=== PATIENT | male | born 1955 | race Caucasian/White ===

== ENCOUNTER → 2017-08-04 | Outpatient (CLI) | payer OTHER | END | disposition home or self-care (01) | LOC: RADMRIMAIN 16:59 | PROVIDERS: ATTEND Family Medicine | DX: Z53.9 Procedure and treatment not carried out, unspecified reason (principal) ==

== ENCOUNTER → 2017-08-05 | Outpatient (CLI) | payer OTHER | END | disposition home or self-care (01) | LOC: RADMRIMAIN 13:20 | PROVIDERS: ATTEND Family Medicine | DX: Z53.9 Procedure and treatment not carried out, unspecified reason (principal) ==

== ENCOUNTER 2017-08-12 19:27 | Emergency (ER) | payer OTHER ==
[2017-08-12 19:36] VITALS: TEMP 98
[2017-08-12] MEDS ORDERED: MORPHINE SULFATE IR 15 MG TABLET PO STA (20:02)
[2017-08-12] MEDS ORDERED: MORPHINE SULFATE ER 60 MG TABLET PO STA (20:10)
[2017-08-12] MEDS ORDERED: METOPROLOL TARTRATE 5 MG/5 ML VIAL IVP SCH (20:15)
[2017-08-12 20:25] LABS: Basophils # (A) 0.1 k/uL (0-0.2); Basophils % (A) 1 %; Eosinophils # (A) 0.4 k/uL (0-0.7); Eosinophils % (A) 4 %; HCT 50.5 % (39.0-53.0); HGB 16.7 gm/dL (13.0-17.5); Lymphocytes # (A) 3.1 k/uL (1.0-4.8); Lymphocytes % (A) 28 %; MCH 28.4 pg (25.0-35.0); MCHC 33.1 g/dL (31.0-37.0); MCV 85.7 fL (80.0-100.0); Monocytes # (A) 0.6 k/uL (0-1.0); Monocytes % (A) 5 %; Neutrophils # (A) 6.5 k/uL (1.3-7.7); Neutrophils % (A) 60 %; Platelet Count 286 k/uL (150-450); RDW 13.5 % (11.5-15.5); WBC 10.9 k/uL (3.8-10.6)
[2017-08-12 20:34] LABS: INR 2.7 (<1.2); Partial Thromboplastin Time 32.3 sec (22.0-30.0); Prothrombin Time 23.9 sec (9.0-12.0)
--- NOTE | 2017-08-12 20:37 | XR ---
EXAMINATION TYPE: XR chest 2V DATE OF EXAM: 08/12/2017 COMPARISON: NONE HISTORY: Palpitations. Chest pain TECHNIQUE: Frontal and lateral views of the chest are obtained. FINDINGS: Heart and mediastinum are normal. There is slight coarsening of interstitial pulmonary [place]. There is no pleural effusion. Bony thorax is intact. There are chest leads. IMPRESSION: Mild increased markings. This could relate to minimal fibrosis.
[2017-08-12 20:55] LABS: ALT 22 U/L (21-72); AST 19 U/L (17-59); Albumin 3.7 g/dL (3.5-5.0); Alkaline Phosphatase 48 U/L (38-126); Anion Gap 12 mmol/L; Blood Urea Nitrogen 18 mg/dL (9-20); Calcium 9.8 mg/dL (8.4-10.2); Carbon Dioxide 23 mmol/L (22-30); Chloride 104 mmol/L (98-107); Glucose 306 mg/dL (74-99); Magnesium 1.7 mg/dL (1.6-2.3); Sodium 139 mmol/L (137-145); Total Bilirubin 0.3 mg/dL (0.2-1.3); Total Protein 7.3 g/dL (6.3-8.2)
[2017-08-12 21:06] LABS: Creatine Kinase MB 1.3 ng/mL (0.0-2.4); Troponin I 0.02 ng/mL (0.000-0.034)
[2017-08-12 21:09] LABS: Potassium 4.3 mmol/L (3.5-5.1)
[2017-08-12] MEDS ORDERED: METOPROLOL TARTRATE 12.5 MG TAB PO STA (21:20)
--- NOTE | 2017-08-12 21:22 | ED ---
Arrhythmia/Palpitations HPI - General Chief Complaint: Arrhythmia/Palpitations Stated Complaint: Tachycardia Time Seen by Provider: 08/12/17 19:39 Source: patient Mode of arrival: wheelchair Limitations: no limitations - History of Present Illness Initial Comments: This is a 61-year-old male with a history of paroxysmal atrial fibrillation post -ablation in the past who is on Coumadin and metoprolol who presents emergency department for dictation's, mild chest discomfort, and elevated blood pressure. The patient states he was recently hospitalized multiple medications adjusted. He states he has Toprol changed from 25 mg twice a day to 12.5 g twice a day. He states that tonight you checking his blood pressure and his blood pressure was elevated and his heart rate was noted to be in the 130s. He decided come emergency department because he was having some palpitations at the time. He denies any lightheadedness. No chest discomfort at this time. Denies any shortness of breath. No other acute complaints. - Related Data Home Medications Medication Instructions Recorded Confirmed Aspirin [Adult Low Dose Aspirin EC] 81 mg PO DAILY 08/12/17 08/12/17 Atorvastatin [Lipitor] 40 mg PO HS 08/12/17 08/12/17 Docusate [Colace] 100 mg PO BID 08/12/17 08/12/17 Fenofibrate 160 mg PO DAILY 08/12/17 08/12/17 Flecainide Acetate [Tambocor] 75 mg PO BID 08/12/17 08/12/17 INSULIN LISPRO (HumaLOG) [HumaLOG] 20 unit SQ DAILY 08/12/17 08/12/17 Insulin Glargine [Lantus] 50 unit SQ HS 08/12/17 08/12/17 Ipratropium Nebulized [Atrovent 0.5 mg INHALATION RT-Q6H PRN 08/12/17 08/12/17 Nebulized] Ketoconazole 2% Cream [Nizoral 2%] 1 applic TOPICAL TID 08/12/17 08/12/17 Lisinopril 40 mg PO DAILY 08/12/17 08/12/17 Metoprolol Tartrate [Lopressor] 12.5 mg PO HS 08/12/17 08/12/17 Morphine Sulfate ER [Ms Contin 60 mg PO Q12HR 08/12/17 08/12/17 60Mg] Ranitidine HCl 150 mg PO BID 08/12/17 08/12/17 Warfarin [Coumadin] 1 mg PO [id number] 08/12/17 08/12/17 Warfarin [Coumadin] 2 mg PO MOTH 08/12/17 08/12/17 Warfarin [Coumadin] 5 mg PO HS 08/12/17 08/12/17 amLODIPine BESYLATE [Norvasc] 10 mg PO HS 08/12/17 08/12/17 glipiZIDE [Glucotrol] 5 mg PO BID 08/12/17 08/12/17 metFORMIN HCL 1,000 mg PO BID 08/12/17 08/12/17 Allergies Allergy/AdvReac Type Severity Reaction Status Date / Time No Known Allergies Allergy Verified 08/12/17 19:56 Review of Systems ROS Statement: Those systems with pertinent positive or pertinent negative responses have been documented in the HPI. ROS Other: All systems not noted in ROS Statement are negative. Past Medical History Past Medical History: Atrial Fibrillation, Chest Pain / Angina, Hyperlipidemia, Hypertension History of Any Multi-Drug Resistant Organisms: None Reported Past Surgical History: Ablation, Appendectomy, Orthopedic Surgery Additional Past Surgical History / Comment(s): Ear surgery Past Psychological History: No Psychological Hx Reported Smoking Status: Current some day smoker Past Alcohol Use History: None Reported Past Drug Use History: None Reported General Exam - General Exam Comments Initial Comments: Constitutional: Awake alert Appears comfortable Head: Normocephalic atraumatic Eyes: no conjunctival injection No scleral icterus EOMI Neck: No JVD Supple Heart: Irregularly irregular rhythm normal S1-S2 no murmurs Lungs: Clear to auscultation bilaterally No wheezing No rales Abdomen: Soft nondistended nontender Extremities: Non edematous DP pulses intact Radial pulses intact Neuro: A&Ox3 No focal neurologic deficits Psych: Appropriate mood and affect Limitations: no limitations Course Vital Signs 08/12/17 08/12/17 19:31 21:39 Temperature 98.0 F Pulse Rate 79 62 Respiratory 18 16 Rate Blood Pressure 140/80 149/70 O2 Sat by Pulse 97 95 Oximetry EKG Findings - EKG Comments: EKG Findings:: EKG showing intrafibrillation with a rate of 82. There is no abnormally 7 changes or T-wave inversions. QTC is 460. Other intervals normal. No ectopy. Medical Decision Making - Medical Decision Making Is a 61-year-old male presented for heart palpitations. On arrival he was found to be H of fibrillation. The patient did take his Toprol 0.5 metoprolol just prior to coming emergency Department. INR was noted to be in therapeutic range. His heart rate converted to sinus rhythm while in the emergency department. Patient was asymptomatic at that time. Troponin negative. At this time I feel the patient's symptoms are likely related to his decreased dose of metoprolol. I told him to increase his dose back to 25 mg twice a day and call Dr. Jones. He needs to have close follow-up with him. He has worsening or recurring symptoms he is to return to emergency. Patient was excited to go home and all questions were answered. - Lab Data Result diagrams: 08/12/17 20:12 08/12/17 20:12 Lab Results 08/12/17 08/12/17 08/12/17 Range/Units 20:12 20:12 20:12 WBC 10.9 H (3.8-10.6) k/uL RBC 5.90 (4.30-5.90) m/uL Hgb 16.7 (13.0-17.5) gm/dL Hct 50.5 (39.0-53.0) % MCV 85.7 (80.0-100.0) fL MCH 28.4 (25.0-35.0) pg MCHC 33.1 (31.0-37.0) g/dL RDW 13.5 (11.5-15.5) % Plt Count 286 (150-450) k/uL Neutrophils % 60 % Lymphocytes % 28 % Monocytes % 5 % Eosinophils % 4 % Basophils % 1 % Neutrophils # 6.5 (1.3-7.7) k/uL Lymphocytes # 3.1 (1.0-4.8) k/uL Monocytes # 0.6 (0-1.0) k/uL Eosinophils # 0.4 (0-0.7) k/uL Basophils # 0.1 (0-0.2) k/uL PT (9.0-12.0) sec INR (<1.2) APTT (22.0-30.0) sec Sodium 139 (137-145) mmol/L Potassium 4.3 (3.5-5.1) mmol/L Chloride 104 (98-107) mmol/L Carbon Dioxide 23 (22-30) mmol/L Anion Gap 12 mmol/L BUN 18 (9-20) mg/dL Creatinine 0.80 (0.66-1.25) mg/dL Est GFR (CKD-EPI)AfAm >90 (>60 ml/min/1.73 sqM) Est GFR (CKD-EPI)NonAf >90 (>60 ml/min/1.73 sqM) Glucose 306 H (74-99) mg/dL Calcium 9.8 (8.4-10.2) mg/dL Magnesium 1.7 (1.6-2.3) mg/dL Total Bilirubin 0.3 (0.2-1.3) mg/dL AST 19 (17-59) U/L ALT 22 (21-72) U/L Alkaline Phosphatase 48 (38-126) U/L CK-MB (CK-2) 1.3 (0.0-2.4) ng/mL Troponin I 0.020 (0.000-0.034) ng/mL Total Protein 7.3 (6.3-8.2) g/dL Albumin 3.7 (3.5-5.0) g/dL 08/12/17 Range/Units 20:12 WBC (3.8-10.6) k/uL RBC (4.30-5.90) m/uL Hgb (13.0-17.5) gm/dL Hct (39.0-53.0) % MCV (80.0-100.0) fL MCH (25.0-35.0) pg MCHC (31.0-37.0) g/dL RDW (11.5-15.5) % Plt Count (150-450) k/uL Neutrophils % % Lymphocytes % % Monocytes % % Eosinophils % % Basophils % % Neutrophils # (1.3-7.7) k/uL Lymphocytes # (1.0-4.8) k/uL Monocytes # (0-1.0) k/uL Eosinophils # (0-0.7) k/uL Basophils # (0-0.2) k/uL PT 23.9 H (9.0-12.0) sec INR 2.7 H (<1.2) APTT 32.3 H (22.0-30.0) sec Sodium (137-145) mmol/L Potassium (3.5-5.1) mmol/L Chloride (98-107) mmol/L Carbon Dioxide (22-30) mmol/L Anion Gap mmol/L BUN (9-20) mg/dL Creatinine (0.66-1.25) mg/dL Est GFR (CKD-EPI)AfAm (>60 ml/min/1.73 sqM) Est GFR (CKD-EPI)NonAf (>60 ml/min/1.73 sqM) Glucose (74-99) mg/dL Calcium (8.4-10.2) mg/dL Magnesium (1.6-2.3) mg/dL Total Bilirubin (0.2-1.3) mg/dL AST (17-59) U/L ALT (21-72) U/L Alkaline Phosphatase (38-126) U/L CK-MB (CK-2) (0.0-2.4) ng/mL Troponin I (0.000-0.034) ng/mL Total Protein (6.3-8.2) g/dL Albumin (3.5-5.0) g/dL Disposition Clinical Impression: Atrial fibrillation Disposition: HOME SELF-CARE Condition: Stable Instructions: A-fib (Atrial Fibrillation) (ED), Palpitations (ED) Additional Instructions: Please go back to taking your previous dosing of metoprolol 25 mg twice a day. Continue with your Coumadin. Call Dr. To. Referrals: Tom Pablo DO [Primary Care Provider] - 1-2 days Riley To MD [STAFF PHYSICIAN] - 1-2 days
[2017-08-12 21:40] VITALS: BP 149/70; PULSE 62; RESP 16
== END 2017-08-12 21:43 | disposition home or self-care (01) ==
LOC: EC 19:27
DX: I48.91 Unspecified atrial fibrillation (principal); E78.5 Hyperlipidemia, unspecified; I10 Essential (primary) hypertension; F17.200 Nicotine dependence, unspecified, uncomplicated; Z79.82 Long term (current) use of aspirin; Z79.4 Long term (current) use of insulin; Z79.891 Long term (current) use of opiate analgesic; Z79.01 Long term (current) use of anticoagulants; Z79.899 Other long term (current) drug therapy; Z98.890 Other specified postprocedural states; Z53.20 Procedure and treatment not carried out because of patient's decision for unspecified reasons
CPT/HCPCS: 36415; 71046; 80053; 82553; 83735; 84484; 85025; 85610; 85730; 93005; 99285

== ENCOUNTER 2017-12-08 20:56 | Emergency (ER) | payer OTHER ==
[2017-12-08 21:05] VITALS: RESP 18
--- NOTE | 2017-12-08 22:52 | XR ---
EXAMINATION TYPE: XR knee complete LT DATE OF EXAM: 12/08/2017 COMPARISON: NONE HISTORY: Knee pain TECHNIQUE: 3 views FINDINGS: There is mild knee joint effusion. I see no fracture nor dislocation. There is minor spurri ng of the lateral femoral and tibial condyles. IMPRESSION: Joint effusion. No fracture. Mild osteoarthritis in the lateral joint space.
[2017-12-08] MEDS ORDERED: KETOROLAC 60 MG/2 ML VIAL IM STA (22:58)
[2017-12-08] MEDS ORDERED: HYDROcodone/APAP 7.5-325MG 1 EACH TAB PO ONE (22:59)
--- NOTE | 2017-12-08 23:02 | ED ---
Lower Extremity Injury HPI - General Chief Complaint: Extremity Injury, Lower Stated Complaint: Knee Pain Time Seen by Provider: 12/08/17 22:01 Source: patient, family Mode of arrival: wheelchair Limitations: no limitations - History of Present Illness Initial Comments: This patient is a 62-year-old man who presents with pain and swelling of the left knee. The patient states that it developed while he is walking. The patient states that he turned while his foot was planted and he felt a popping feeling and like his knee buckled. There was not a great deal of pain at the time. He is not sure if he twisted his knee. He did not have a fall. He noticed that it started swelling and he was having pain. Patient states that he tried managing at home but symptoms only gotten worse. He denies previous surgery to the knee. No fever or chills. No chest symptoms or systemic symptoms. MD Complaint: knee injury Onset/Timin -: hour(s) Injury: Knee: Left Type of Injury: unknown Place: home Severity: severe Improves With: nothing Worsens With: weight bearing, movement Context: walking Associated Symptoms: snap/pop sensation - Related Data Home Medications Medication Instructions Recorded Confirmed Aspirin [Adult Low Dose Aspirin EC] 81 mg PO DAILY 08/12/17 12/08/17 Atorvastatin [Lipitor] 40 mg PO HS 08/12/17 12/08/17 Docusate [Colace] 100 mg PO BID 08/12/17 12/08/17 Fenofibrate 160 mg PO DAILY 08/12/17 12/08/17 Flecainide Acetate [Tambocor] 75 mg PO BID 08/12/17 12/08/17 INSULIN LISPRO (HumaLOG) [HumaLOG] 20 unit SQ AC-BRKFST 08/12/17 12/08/17 Insulin Glargine [Lantus] 60 unit SQ HS 08/12/17 12/08/17 Ipratropium Nebulized [Atrovent 0.5 mg INHALATION RT-Q6H PRN 08/12/17 12/08/17 Nebulized] Ketoconazole 2% Cream [Nizoral 2%] 1 applic TOPICAL TID 08/12/17 12/08/17 Lisinopril 40 mg PO DAILY 08/12/17 12/08/17 Metoprolol Tartrate [Lopressor] 12.5 mg PO HS 08/12/17 12/08/17 Ranitidine HCl 150 mg PO BID 08/12/17 12/08/17 Warfarin [Coumadin] 1 mg PO MOTH 08/12/17 12/08/17 Warfarin [Coumadin] 5 mg PO HS 08/12/17 12/08/17 amLODIPine BESYLATE [Norvasc] 10 mg PO HS 08/12/17 12/08/17 glipiZIDE [Glucotrol] 5 mg PO BID 08/12/17 12/08/17 metFORMIN HCL 1,000 mg PO BID 08/12/17 12/08/17 Hydrocodone/Acetaminophen [[place] 1 tab PO Q6H PRN 12/08/17 12/08/17 10-325] Omeprazole [PriLOSEC] 20 mg PO AC-BRKFST 12/08/17 12/08/17 Allergies Allergy/AdvReac Type Severity Reaction Status Date / Time No Known Allergies Allergy Verified 12/08/17 23:06 Review of Systems ROS Statement: Those systems with pertinent positive or pertinent negative responses have been documented in the HPI. ROS Other: All systems not noted in ROS Statement are negative. Constitutional: Denies: fever, chills, weakness Respiratory: Denies: cough, dyspnea Cardiovascular: Denies: chest pain Musculoskeletal: Reports: as per HPI, joint swelling, arthralgia Skin: Denies: rash Neurological: Denies: weakness, numbness, paresthesias Hematological/Lymphatic: Denies: easy bleeding Past Medical History Past Medical History: Atrial Fibrillation, Chest Pain / Angina, Hyperlipidemia, Hypertension History of Any Multi-Drug Resistant Organisms: None Reported Past Surgical History: Ablation, Appendectomy, Orthopedic Surgery Additional Past Surgical History / Comment(s): Ear surgery Past Psychological History: No Psychological Hx Reported Smoking Status: Current every day smoker Past Alcohol Use History: None Reported Past Drug Use History: None Reported General Exam Limitations: no limitations General appearance: alert, in no apparent distress Respiratory exam: Present: normal lung sounds bilaterally. Absent: respiratory distress, wheezes, rales, rhonchi, stridor Cardiovascular Exam: Present: regular rate, normal rhythm, normal heart sounds. Absent: systolic murmur, diastolic murmur, rubs, gallop Extremities exam: Present: tenderness, normal capillary refill, joint swelling, other (I am not able to perform full range of motion exam of the knee due to pain with range of motion.). Absent: calf tenderness Left Upper Leg exam: Present: normal inspection Knee exam: Present: tenderness, effusion. Absent: full ROM, abrasion, laceration, ecchymosis, deformity, dislocation, erythema Lower Leg exam: Present: normal inspection. Absent: tenderness, swelling Ankle exam: Present: normal inspection, full ROM. Absent: tenderness, swelling Foot/Toe exam: Present: normal inspection, full ROM. Absent: tenderness, swelling Neurovascular tendon exam: Present: no vascular compromise. Absent: motor deficit, sensory deficit Course Vital Signs 12/08/17 12/09/17 21:02 02:19 Temperature 98.7 F 98.2 F Pulse Rate 90 66 Respiratory 18 18 Rate Blood Pressure 156/99 161/100 O2 Sat by Pulse 98 100 Oximetry Procedures - Joint Aspiration/Injection Consent Obtained: verbal consent Time Out Performed: Yes Indications: drain hemarthrosis Side of Body: left Joint Aspirated: knee Ultrasound Guidance: No Skin Prep: Povidone-Iodine1% Local Anesthesia Used: Lidocaine 1% Needle Size Used: 18G Syringe Size Used: Other (30) Fluid Obtained: bloody Patient Tolerated Procedure: well, no complications Complications: none Medical Decision Making - Medical Decision Making This patient is 62-year-old man presenting with left knee effusion after low mechanism of injury. The patient does have hemarthrosis. I'm not able to fully assess the ligaments of the knee given his pain area the patient is feeling better following removal of approximate 50 mL of the hemarthrosis. He is placed in knee immobilizer and would like to follow-up with the orthopedic clinic. We discussed return parameters as well as appropriate further care and follow-up. Patient's Coumadin level was checked and it is at the top of the therapeutic window not supratherapeutic. - Lab Data Result diagrams: 12/09/17 01:30 Lab Results 12/09/17 12/09/17 Range/Units 01:30 01:30 WBC 10.6 (3.8-10.6) k/uL RBC 5.32 (4.30-5.90) m/uL Hgb 15.2 (13.0-17.5) gm/dL Hct 45.8 (39.0-53.0) % MCV 86.2 (80.0-100.0) fL MCH 28.7 (25.0-35.0) pg MCHC 33.3 (31.0-37.0) g/dL RDW 13.9 (11.5-15.5) % Plt Count 260 (150-450) k/uL Neutrophils % 64 % Lymphocytes % 25 % Monocytes % 5 % Eosinophils % 3 % Basophils % 1 % Neutrophils # 6.8 (1.3-7.7) k/uL Lymphocytes # 2.6 (1.0-4.8) k/uL Monocytes # 0.6 (0-1.0) k/uL Eosinophils # 0.4 (0-0.7) k/uL Basophils # 0.1 (0-0.2) k/uL PT 31.4 H (9.0-12.0) sec INR 3.5 H (<1.2) APTT 32.4 H (22.0-30.0) sec Disposition Clinical Impression: Knee injury, Knee effusion, left, Hemarthrosis Disposition: HOME SELF-CARE Condition: Fair Instructions: Knee Sprain (ED) Is patient prescribed a controlled substance at d/c from ED?: No Referrals: Enrique Davis MD [Medical Doctor] - 1-2 days
[2017-12-09] MEDS ORDERED: LIDOCAINE 1% INJ 10MG/ML (20 ML MDV) SQ STA (00:02)
[2017-12-09] MEDS ORDERED: MORPHINE SULFATE 2 MG/ML SYRINGE IV STA (01:16)
[2017-12-09 01:44] LABS: Basophils # (A) 0.1 k/uL (0-0.2); Basophils % (A) 1 %; Eosinophils # (A) 0.4 k/uL (0-0.7); Eosinophils % (A) 3 %; HCT 45.8 % (39.0-53.0); HGB 15.2 gm/dL (13.0-17.5); Lymphocytes # (A) 2.6 k/uL (1.0-4.8); Lymphocytes % (A) 25 %; MCH 28.7 pg (25.0-35.0); MCHC 33.3 g/dL (31.0-37.0); MCV 86.2 fL (80.0-100.0); Mean Platelet Volume 7.1; Monocytes # (A) 0.6 k/uL (0-1.0); Monocytes % (A) 5 %; Neutrophils # (A) 6.8 k/uL (1.3-7.7); Neutrophils % (A) 64 %; Platelet Count 260 k/uL (150-450); RBC 5.32 m/uL (4.30-5.90); RDW 13.9 % (11.5-15.5); WBC 10.6 k/uL (3.8-10.6)
[2017-12-09 01:52] LABS: INR 3.5 (<1.2); Partial Thromboplastin Time 32.4 sec (22.0-30.0); Prothrombin Time 31.4 sec (9.0-12.0)
[2017-12-09 02:20] VITALS: BP 161/100; PULSE 66; TEMP 98.2
== END 2017-12-09 02:20 | disposition home or self-care (01) ==
LOC: EC 20:56
DX: M25.062 Hemarthrosis, left knee (principal); M25.462 Effusion, left knee; E78.5 Hyperlipidemia, unspecified; I10 Essential (primary) hypertension; I48.91 Unspecified atrial fibrillation; F17.200 Nicotine dependence, unspecified, uncomplicated; Z79.01 Long term (current) use of anticoagulants; Z79.4 Long term (current) use of insulin; Z79.82 Long term (current) use of aspirin; Z79.899 Other long term (current) drug therapy; Z86.79 Personal history of other diseases of the circulatory system; X58.XXXA Exposure to other specified factors, initial encounter; Y93.01 Activity, walking, marching and hiking; Y92.009 Unspecified place in unspecified non-institutional (private) residence as the place of occurrence of the external cause
CPT/HCPCS: 36415; 85025; 85610; 85730; 73562; 99283; 20610; 96374; 96372; J2001; J1885; J2270

== ENCOUNTER → 2018-05-10 | Outpatient (CLI) | payer OTHER ==
--- NOTE | 2018-05-10 10:38 | US ---
EXAMINATION TYPE: US renals and bladder DATE OF EXAM: 05/10/2018 COMPARISON: NONE CLINICAL HISTORY: R80.9 Proteinuria,E11.9 DM 2. Proteinuria, no pain, kidney ultrasound per order EXAM MEASUREMENTS: Right Kidney: 13.4 x 6.5 x 6.5 cm Left Kidney: 13.1 x 5.2 x 5.7 cm Right Kidney: Cystic appearing lesions seen. Largest seen lower pole = 1.9 x 1.8 x 2.1 cm Left Kidney: dromedary hump seen Bladder: distended, wnl Bilateral Jets seen There is no evidence for hydronephrosis at this point in time. No nephrolithiasis is seen. No solid masses are identified. The urinary bladder is anechoic. Bilateral ureteral jets are seen. IMPRESSION: 1. Simple appearing cysts.
== END | disposition home or self-care (01) ==
LOC: RADUSWWP 09:44
PROVIDERS: ATTEND Family Medicine
DX: N28.1 Cyst of kidney, acquired (principal); E11.9 Type 2 diabetes mellitus without complications; R80.9 Proteinuria, unspecified
CPT/HCPCS: 76770

== ENCOUNTER 2020-08-21 20:54 | Inpatient (IN) | payer MEDICARE, OTHER ==
[2020-08-21] MEDS ORDERED: SODIUM CHLORIDE 0.9% 1,000 ML IV STA (21:23)
[2020-08-21] MEDS ORDERED: METOPROLOL TARTRATE 5 MG/5 ML VIAL IVP STA ×2 (21:23→22:19)
--- NOTE | 2020-08-21 21:40 | XR ---
EXAMINATION TYPE: XR chest 2V DATE OF EXAM: 08/21/2020 COMPARISON: NONE HISTORY: Weakness TECHNIQUE: 2 views FINDINGS: Heart is normal. There is no gross heart failure. There is slight increased interstitial pu lmonary markings. There are chest leads. There is no definite pleural effusion. IMPRESSION: Mild pulmonary interstitial infiltrates. No heart failure seen.
--- NOTE | 2020-08-21 21:53 | ED ---
SOB HPI - General Chief Complaint: Shortness of Breath Stated Complaint: ALEJANDRO Time Seen by Provider: 08/21/20 21:13 Source: patient, EMS, RN notes reviewed, old records reviewed Mode of arrival: EMS Limitations: no limitations - History of Present Illness Initial Comments: This is a 65-year-old male DF for evaluation. Patient presents today for evaluation of a trip fibrillation history of a for fibrillation. Patient has otherwise no significant treating cause of his shortness of breath he states he saw like this before with his atrial fibrillation acting up his heart rate feels elevated which also was causing weakness. No chest pain he is on blood thinners is taking medication as directed. He did take an extra dose of metoprolol prior to arrival states did not help, symptoms for about the last 4-5 hours currently. No recent fevers cough or congestion no nausea vomiting MD Complaint: shortness of breath -: hour(s) (4) Severity: moderate Severity scale (1-10): 4 Consistency: constant Improves With: rest, medication Worsens With: exertion, movement Known History Of: other (Atrial fibrillation) Context: recent URI, other (History of atrial fibrillation) Associated Symptoms: denies other symptoms Treatments Prior to Arrival: none - Related Data Home Medications Medication Instructions Recorded Confirmed Aspirin [Adult Low Dose Aspirin EC] 81 mg PO DAILY 08/12/17 08/21/20 Atorvastatin [Lipitor] 40 mg PO HS 08/12/17 08/21/20 Metoprolol Tartrate [Lopressor] 12.5 mg PO BID 08/12/17 08/21/20 metFORMIN HCL 1,000 mg PO BID 08/12/17 08/21/20 Hydrocodone/Acetaminophen [[place] 1 tab PO TID 12/08/17 08/21/20 10-325] Omeprazole [PriLOSEC] 20 mg PO DAILY 12/08/17 08/21/20 Albuterol Inhaler [Ventolin Hfa 2 puff INHALATION RT-QID PRN 08/21/20 08/21/20 Inhaler] Cholecalciferol [Vitamin D3 (25 50 mcg PO DAILY 08/21/20 08/21/20 Mcg = 1000 Iu)] Flecainide Acetate 100 mg PO BID 08/21/20 08/21/20 Insulin Aspart [NovoLOG Flexpen] See Protocol SQ AC-TID 08/21/20 08/21/20 Insulin Glargine,Hum.rec.anlog 25 unit SQ HS 08/21/20 08/21/20 [Basaglar Kwikpen U-100] Rivaroxaban [Xarelto] 20 mg PO HS 08/21/20 08/21/20 Semaglutide [Ozempic] 1 mg SQ MO 08/21/20 08/21/20 Triamterene-Hctz 37.5-25Mg 1 cap PO DAILY 08/21/20 08/21/20 [Dyazide 37.5-25 Capsule] Umeclidinium [place] [Incruse 1 puff INHALATION RT-DAILY 08/21/20 08/21/20 Ellipta] Valsartan 160 mg PO BID 08/21/20 08/21/20 Vitamin B Complex 1 cap PO DAILY 08/21/20 08/21/20 Vitamin E 180mg 180 mg PO HS 08/21/20 08/21/20 Allergies Allergy/AdvReac Type Severity Reaction Status Date / Time No Known Allergies Allergy Verified 08/21/20 22:21 Review of Systems ROS Statement: Those systems with pertinent positive or pertinent negative responses have been documented in the HPI. ROS Other: All systems not noted in ROS Statement are negative. Past Medical History Past Medical History: Atrial Fibrillation, Chest Pain / Angina, Hyperlipidemia, Hypertension History of Any Multi-Drug Resistant Organisms: None Reported Past Surgical History: Ablation, Appendectomy, Orthopedic Surgery Additional Past Surgical History / Comment(s): Ear surgery Past Psychological History: No Psychological Hx Reported Smoking Status: Current every day smoker Past Alcohol Use History: None Reported Past Drug Use History: None Reported General Exam Limitations: no limitations General appearance: alert, in no apparent distress, anxious Head exam: Present: atraumatic, normocephalic, normal inspection Eye exam: Present: normal appearance, PERRL, EOMI. Absent: scleral icterus, conjunctival injection, periorbital swelling ENT exam: Present: normal exam, mucous membranes moist Neck exam: Present: normal inspection. Absent: tenderness, meningismus, lymphadenopathy Respiratory exam: Present: normal lung sounds bilaterally. Absent: respiratory distress, wheezes, rales, rhonchi, stridor Cardiovascular Exam: Present: tachycardia, irregular rhythm, normal heart sounds. Absent: systolic murmur, diastolic murmur, rubs, gallop, clicks GI/Abdominal exam: Present: soft, normal bowel sounds. Absent: distended, tenderness, guarding, rebound, rigid Extremities exam: Present: normal inspection, full ROM, normal capillary refill. Absent: tenderness, pedal edema, joint swelling, calf tenderness Back exam: Present: normal inspection Neurological exam: Present: alert, oriented X3, CN II-XII intact Psychiatric exam: Present: normal affect, normal mood Skin exam: Present: warm, dry, intact, normal color. Absent: rash Course Vital Signs 08/21/20 08/21/20 20:56 22:51 Temperature 99.1 F Pulse Rate 115 H 118 H Respiratory 19 17 Rate Blood Pressure 124/86 119/83 O2 Sat by Pulse 98 96 Oximetry - Reevaluation(s) Reevaluation #1: 08/21/20 21:55 Medical records reviewed Reevaluation #2: 08/21/20 23:01 Spoke patient still feels lightheaded and dizzy Reevaluation #3: 08/21/20 23:02 patient informed of results and questions answered - Consultations Consultation #1: spoke tanisha ALCAZAR nickie for admission Medical Decision Making - Medical Decision Making 65 male with severe dizziness and near syncopal event coming in here for evaluation today. Patient does have atrophic fibrillation but states his heart is not always in nature for ablation is on blood thinners. No recent falls or trauma, patient states are feels severely elevated in with movement and change of position he feels like he may pass out, patient remains in atrial fibrillation RVR here in the ER difficult to control heart rate multiple med ications, will admit for cardiology to evaluate - Lab Data Result diagrams: 08/21/20 21:40 08/21/20 21:40 Lab Results 08/21/20 08/21/20 08/21/20 Range/Units 21:40 21:40 21:40 WBC 11.7 H (3.8-10.6) k/uL RBC 4.85 (4.30-5.90) m/uL Hgb 15.3 (13.0-17.5) gm/dL Hct 44.2 (39.0-53.0) % MCV 91.1 (80.0-100.0) fL MCH 31.6 (25.0-35.0) pg MCHC 34.7 (31.0-37.0) g/dL RDW 12.8 (11.5-15.5) % Plt Count 290 (150-450) k/uL MPV 7.9 Neutrophils % 59 % Lymphocytes % 26 % Monocytes % 8 % Eosinophils % 5 % Basophils % 1 % Neutrophils # 6.9 (1.3-7.7) k/uL Lymphocytes # 3.1 (1.0-4.8) k/uL Monocytes # 0.9 (0-1.0) k/uL Eosinophils # 0.5 (0-0.7) k/uL Basophils # 0.1 (0-0.2) k/uL PT 9.5 (9.0-12.0) sec INR 0.9 (<1.2) APTT 24.3 (22.0-30.0) sec Sodium (137-145) mmol/L Potassium (3.5-5.1) mmol/L Chloride (98-107) mmol/L Carbon Dioxide (22-30) mmol/L Anion Gap mmol/L BUN (9-20) mg/dL Creatinine (0.66-1.25) mg/dL Est GFR (CKD-EPI)AfAm (>60 ml/min/1.73 sqM) Est GFR (CKD-EPI)NonAf (>60 ml/min/1.73 sqM) Glucose (74-99) mg/dL Calcium (8.4-10.2) mg/dL Phosphorus (2.5-4.5) mg/dL Magnesium (1.6-2.3) mg/dL Total Bilirubin (0.2-1.3) mg/dL AST (17-59) U/L ALT (4-49) U/L Alkaline Phosphatase (38-126) U/L Creatine Kinase (55-170) U/L Troponin I (0.000-0.034) ng/mL NT-Pro-B Natriuret Pep pg/mL Total Protein (6.3-8.2) g/dL Albumin (3.5-5.0) g/dL Urine Color Light Yellow Urine Appearance Clear (Clear) Urine pH 6.5 (5.0-8.0) Ur Specific [place] 1.008 (1.001-1.035) Urine Protein 3+ H (Negative) Urine Glucose (UA) 1+ H (Negative) Urine Ketones Negative (Negative) Urine Blood Trace H (Negative) Urine Nitrite Negative (Negative) Urine Bilirubin Negative (Negative) Urine Urobilinogen <2.0 (<2.0) mg/dL Ur Leukocyte Esterase Negative (Negative) Urine RBC 3 (0-5) /hpf Urine WBC <1 (0-5) /hpf Hyaline Casts 1 (0-2) /lpf 08/21/20 08/21/20 08/21/20 Range/Units 21:40 21:40 21:40 WBC (3.8-10.6) k/uL RBC (4.30-5.90) m/uL Hgb (13.0-17.5) gm/dL Hct (39.0-53.0) % MCV (80.0-100.0) fL MCH (25.0-35.0) pg MCHC (31.0-37.0) g/dL RDW (11.5-15.5) % Plt Count (150-450) k/uL MPV Neutrophils % % Lymphocytes % % Monocytes % % Eosinophils % % Basophils % % Neutrophils # (1.3-7.7) k/uL Lymphocytes # (1.0-4.8) k/uL Monocytes # (0-1.0) k/uL Eosinophils # (0-0.7) k/uL Basophils # (0-0.2) k/uL PT (9.0-12.0) sec INR (<1.2) APTT (22.0-30.0) sec Sodium 135 L (137-145) mmol/L Potassium 4.5 (3.5-5.1) mmol/L Chloride 104 (98-107) mmol/L Carbon Dioxide 21 L (22-30) mmol/L Anion Gap 10 mmol/L BUN 25 H (9-20) mg/dL Creatinine 1.34 H (0.66-1.25) mg/dL Est GFR (CKD-EPI)AfAm 63 (>60 ml/min/1.73 sqM) Est GFR (CKD-EPI)NonAf 55 (>60 ml/min/1.73 sqM) Glucose 286 H (74-99) mg/dL Calcium 8.6 (8.4-10.2) mg/dL Phosphorus 4.6 H (2.5-4.5) mg/dL Magnesium 1.5 L (1.6-2.3) mg/dL Total Bilirubin 0.3 (0.2-1.3) mg/dL AST 19 (17-59) U/L ALT 12 (4-49) U/L Alkaline Phosphatase 93 (38-126) U/L Creatine Kinase 80 (55-170) U/L Troponin I <0.012 (0.000-0.034) ng/mL NT-Pro-B Natriuret Pep 155 pg/mL Total Protein 6.2 L (6.3-8.2) g/dL Albumin 3.2 L (3.5-5.0) g/dL Urine Color Urine Appearance (Clear) Urine pH (5.0-8.0) Ur Specific [place] (1.001-1.035) Urine Protein (Negative) Urine Glucose (UA) (Negative) Urine Ketones (Negative) Urine Blood (Negative) Urine Nitrite (Negative) Urine Bilirubin (Negative) Urine Urobilinogen (<2.0) mg/dL Ur Leukocyte Esterase (Negative) Urine RBC (0-5) /hpf Urine WBC (0-5) /hpf Hyaline Casts (0-2) /lpf - EKG Data -: EKG Interpreted by Me (EKG is A. fib RVR 133 QRS 112 QTc 440) - Radiology Data Radiology results: report reviewed (Chest x-rays negative for acute disease), image reviewed Disposition Clinical Impression: Atrial fibrillation with RVR, Near syncope Disposition: ADMITTED IP TO THIS HOSP Condition: Fair Is patient prescribed a controlled substance at d/c from ED?: No Referrals: None,Stated [REFERRING] - 1-2 days
[2020-08-21 22:01] LABS: Basophils # (A) 0.1 k/uL (0-0.2); Basophils % (A) 1 %; Eosinophils # (A) 0.5 k/uL (0-0.7); Eosinophils % (A) 5 %; HCT 44.2 % (39.0-53.0); HGB 15.3 gm/dL (13.0-17.5); Lymphocytes # (A) 3.1 k/uL (1.0-4.8); Lymphocytes % (A) 26 %; MCH 31.6 pg (25.0-35.0); MCHC 34.7 g/dL (31.0-37.0); MCV 91.1 fL (80.0-100.0); Mean Platelet Volume 7.9; Monocytes # (A) 0.9 k/uL (0-1.0); Monocytes % (A) 8 %; Neutrophils # (A) 6.9 k/uL (1.3-7.7); Neutrophils % (A) 59 %; Platelet Count 290 k/uL (150-450); RBC 4.85 m/uL (4.30-5.90); RDW 12.8 % (11.5-15.5); WBC 11.7 k/uL (3.8-10.6)
[2020-08-21 22:13] LABS: INR 0.9 (<1.2); Partial Thromboplastin Time 24.3 sec (22.0-30.0); Prothrombin Time 9.5 sec (9.0-12.0)
[2020-08-21 22:17] LABS: Appearance,Urine Clear (Clear); Bilirubin,Urine Negative (Negative); Blood,Urine Trace (Negative); Color,Urine Light Yellow; Glucose,Urine (UA) 1+ (Negative); Hyaline Casts,Urine 1 /lpf (0-2); Ketones,Urine Negative (Negative); Leukocyte Esterase,Urine Negative (Negative); Nitrite,Urine Negative (Negative); PH, Urine 6.5 (5.0-8.0); Protein,Urine 3+ (Negative); RBC,Urine 3 /hpf (0-5); Specific Gravity,Urine 1.008 (1.001-1.035); Urobilinogen,Urine <2.0 mg/dL (<2.0); WBC,Urine <1 /hpf (0-5)
[2020-08-21 22:18] LABS: Albumin 3.2 g/dL (3.5-5.0); Calcium 8.6 mg/dL (8.4-10.2); Magnesium 1.5 mg/dL (1.6-2.3); Phosphorus 4.6 mg/dL (2.5-4.5); Potassium 4.5 mmol/L (3.5-5.1); Total Bilirubin 0.3 mg/dL (0.2-1.3); Total Protein 6.2 g/dL (6.3-8.2)
[2020-08-21] MEDS ORDERED: DILTIAZEM DRIP BOLUS FROM BAG 1 MG SOLN IV ONE (22:31)
[2020-08-21] MEDS ORDERED: SODIUM CHLORIDE 0.9% 500 ML 500 ML IV STA (22:31)
[2020-08-21] MEDS ORDERED: MORPHINE SULFATE 4 MG/ML SYRINGE IV PRN (22:57)
[2020-08-21] MEDS ORDERED: NITROGLYCERIN SL TABS 0.4 MG TAB SUBLINGUAL PRN (22:57)
[2020-08-21] MEDS ORDERED: HYDROcodone/APAP 10-325MG 1 EACH TAB PO SCH (23:00)
[2020-08-21] MEDS ORDERED: DILTIAZEM 125 MG in SODIUM CHLORIDE 0.9% 100 ML IV SCH (23:00)
[2020-08-21] MEDS: HYDROcodone/APAP 10-325MG 1 EACH TAB PO SCH (23:22)
[2020-08-21] MEDS: SODIUM CHLORIDE 0.9% 1,000 ML IV SCH (23:26)
[2020-08-22 04:06] LABS: Cholesterol 131 mg/dL (<200); HDL Cholesterol 27 mg/dL (40-60); LDL Cholesterol,Calculated 48 mg/dL (0-99); Triglycerides 280 mg/dL (<150)
[2020-08-22 05:34] VITALS: TEMP 98.8
[2020-08-22] MEDS ORDERED: ASPIRIN 325 MG TAB PO SCH (09:00)
[2020-08-22] MEDS: HYDROcodone/APAP 10-325MG 1 EACH TAB PO SCH (09:24)
[2020-08-22] MEDS: SODIUM CHLORIDE 0.9% 1,000 ML IV SCH (09:26)
[2020-08-22] MEDS ORDERED: TRIAMTERENE-HCTZ 37.5-25MG 1 EACH CAP PO SCH (10:45)
[2020-08-22] MEDS ORDERED: METOPROLOL TARTRATE 12.5 MG TAB PO SCH (10:45)
[2020-08-22] MEDS ORDERED: FLECAINIDE 50 MG TAB PO SCH (10:45)
[2020-08-22] MEDS: VALSARTAN 160 MG TAB PO SCH (11:03)
--- NOTE | 2020-08-22 11:22 | P.HPIM ---
History of Present Illness Patient left before being seen by me Past Medical History Past Medical History: Atrial Fibrillation, Chest Pain / Angina, Hyperlipidemia, Hypertension History of Any Multi-Drug Resistant Organisms: None Reported Past Surgical History: Ablation, Appendectomy, Orthopedic Surgery Additional Past Surgical History / Comment(s): Ear surgery Past Psychological History: No Psychological Hx Reported Smoking Status: Current every day smoker Past Alcohol Use History: None Reported Past Drug Use History: None Reported Medications and Allergies Home Medications Medication Instructions Recorded Confirmed Type Aspirin [Adult Low Dose Aspirin EC] 81 mg PO DAILY 08/12/17 08/21/20 History Atorvastatin [Lipitor] 40 mg PO HS 08/12/17 08/21/20 History Metoprolol Tartrate [Lopressor] 12.5 mg PO BID 08/12/17 08/21/20 History metFORMIN HCL 1,000 mg PO BID 08/12/17 08/21/20 History Hydrocodone/Acetaminophen [[place] 1 tab PO TID 12/08/17 08/21/20 History 10-325] Omeprazole [PriLOSEC] 20 mg PO DAILY 12/08/17 08/21/20 History Albuterol Inhaler [Ventolin Hfa 2 puff INHALATION RT-QID PRN 08/21/20 08/21/20 History Inhaler] Cholecalciferol [Vitamin D3 (25 50 mcg PO DAILY 08/21/20 08/21/20 History Mcg = 1000 Iu)] Flecainide Acetate 100 mg PO BID 08/21/20 08/21/20 History Insulin Aspart [NovoLOG Flexpen] See Protocol SQ AC-TID 08/21/20 08/21/20 H istory Insulin Glargine,Hum.rec.anlog 25 unit SQ HS 08/21/20 08/21/20 History [Basaglar Kwikpen U-100] Rivaroxaban [Xarelto] 20 mg PO HS 08/21/20 08/21/20 History Semaglutide [Ozempic] 1 mg SQ MO 08/21/20 08/21/20 History Triamterene-Hctz 37.5-25Mg 1 cap PO DAILY 08/21/20 08/21/20 History [Dyazide 37.5-25 Capsule] Umeclidinium [place] [Incruse 1 puff INHALATION RT-DAILY 03/18/21 03/18/21 History Ellipta] Valsartan 160 mg PO BID 08/21/20 08/21/20 History Vitamin B Complex 1 cap PO DAILY 08/21/20 08/21/20 History Vitamin E 180mg 180 mg PO HS 08/21/20 08/21/20 History Allergies Allergy/AdvReac Type Severity Reaction Status Date / Time No Known Allergies Allergy Verified 08/21/20 22:21 Physical Exam Vitals: Vital Signs Temp Pulse Resp BP Pulse Ox 08/22/20 07:35 58 L 16 165/88 97 08/22/20 05:32 98.8 F 64 19 139/74 98 08/22/20 00:44 68 17 129/55 98 08/21/20 22:51 118 H 17 119/83 96 08/21/20 20:56 99.1 F 115 H 19 124/86 98 Intake and Output 08/21/20 08/22/20 08/22/20 22:59 06:59 14:59 Other: Weight 105.687 kg Results CBC & Chem 7: 08/21/20 21:40 08/21/20 21:40 Labs: Abnormal Lab Results - Last 24 Hours (Table) 08/21/20 08/21/20 08/21/20 Range/Units 21:40 21:40 21:40 WBC 11.7 H (3.8-10.6) k/uL Sodium 135 L (137-145) mmol/L Carbon Dioxide 21 L (22-30) mmol/L BUN 25 H (9-20) mg/dL Creatinine 1.34 H (0.66-1.25) mg/dL Glucose 286 H (74-99) mg/dL Phosphorus 4.6 H (2.5-4.5) mg/dL Magnesium 1.5 L (1.6-2.3) mg/dL Total Protein 6.2 L (6.3-8.2) g/dL Albumin 3.2 L (3.5-5.0) g/dL Triglycerides (<150) mg/dL HDL Cholesterol (40-60) mg/dL Urine Protein 3+ H (Negative) Urine Glucose (UA) 1+ H (Negative) Urine Blood Trace H (Negative) 08/22/20 Range/Units 03:23 WBC (3.8-10.6) k/uL Sodium (137-145) mmol/L Carbon Dioxide (22-30) mmol/L BUN (9-20) mg/dL Creatinine (0.66-1.25) mg/dL Glucose (74-99) mg/dL Phosphorus (2.5-4.5) mg/dL Magnesium (1.6-2.3) mg/dL Total Protein (6.3-8.2) g/dL Albumin (3.5-5.0) g/dL Triglycerides 280 H (<150) mg/dL HDL Cholesterol 27 L (40-60) mg/dL Urine Protein (Negative) Urine Glucose (UA) (Negative) Urine Blood (Negative)
--- NOTE | 2020-08-22 11:22 | P.DS ---
Providers Date of admission: 08/21/20 22:58 Attending physician: Carmelo Duckworth Consults: 08/21/20 22:58 Consult Physician Urgent Consulting Provider: Abby Ruiz Consult Reason/Comments: afib Do you want consulting provider notified?: Yes Primary care physician: Physician Nonstaff Hospital Course: Left AMA Patient Condition at Discharge: Fair Plan - Discharge Summary New Discharge Prescriptions: No Action Aspirin [Adult Low Dose Aspirin EC] 81 mg PO DAILY Atorvastatin [Lipitor] 40 mg PO HS metFORMIN HCL 1,000 mg PO BID Metoprolol Tartrate [Lopressor] 12.5 mg PO BID Omeprazole [PriLOSEC] 20 mg PO DAILY Hydrocodone/Acetaminophen [[place] 10-325] 1 tab PO TID Semaglutide [Ozempic] 1 mg SQ MO Umeclidinium [place] [Incruse Ellipta] 1 puff INHALATION RT-DAILY Insulin Glargine,Hum.rec.anlog [Basaglar Kwikpen U-100] 25 unit SQ HS Rivaroxaban [Xarelto] 20 mg PO HS Insulin Aspart [NovoLOG Flexpen] See Protocol SQ AC-TID Vitamin E 180mg 180 mg PO HS Vitamin B Complex 1 cap PO DAILY Triamterene-Hctz 37.5-25Mg [Dyazide 37.5-25 Capsule] 1 cap PO DAILY Flecainide Acetate 100 mg PO BID Cholecalciferol [Vitamin D3 (25 Mcg = 1000 Iu)] 50 mcg PO DAILY Valsartan 160 mg PO BID Albuterol Inhaler [Ventolin Hfa Inhaler] 2 puff INHALATION RT-QID PRN PRN Reason: Shortness Of Breath Discharge Medication List Aspirin [Adult Low Dose Aspirin EC] 81 mg PO DAILY 08/12/17 [History] Atorvastatin [Lipitor] 40 mg PO HS 08/12/17 [History] Metoprolol Tartrate [Lopressor] 12.5 mg PO BID 08/12/17 [History] metFORMIN HCL 1,000 mg PO BID 08/12/17 [History] Hydrocodone/Acetaminophen [[place] 10-325] 1 tab PO TID 12/08/17 [History] Omeprazole [PriLOSEC] 20 mg PO DAILY 12/08/17 [History] Albuterol Inhaler [Ventolin Hfa Inhaler] 2 puff INHALATION RT-QID PRN 08/21/20 [History] Cholecalciferol [Vitamin D3 (25 Mcg = 1000 Iu)] 50 mcg PO DAILY 08/21/20 [History] Flecainide Acetate 100 mg PO BID 08/21/20 [History] Insulin Aspart [NovoLOG Flexpen] See Protocol SQ AC-TID 08/21/20 [History] Insulin Glargine,Hum.rec.anlog [Basaglar Kwikpen U-100] 25 unit SQ HS 08/21/20 [History] Rivaroxaban [Xarelto] 20 mg PO HS 08/21/20 [History] Semaglutide [Ozempic] 1 mg SQ MO 08/21/20 [History] Triamterene-Hctz 37.5-25Mg [Dyazide 37.5-25 Capsule] 1 cap PO DAILY 08/21/20 [History] Umeclidinium [place] [Incruse Ellipta] 1 puff INHALATION RT-DAILY 08/21/20 [History] Valsartan 160 mg PO BID 08/21/20 [History] Vitamin B Complex 1 cap PO DAILY 08/21/20 [History] Vitamin E 180mg 180 mg PO HS 08/21/20 [History] Follow up Appointment(s)/Referral(s): Riley To MD [STAFF PHYSICIAN] - 1 Week None,Stated [REFERRING] - 1-2 days
[2020-08-22 11:26] VITALS: BP 188/91; PULSE 65; RESP 18
--- NOTE | 2020-08-22 12:44 | CONS ---
CONSULTATION Nolberto Gonzalez is a 65-year-old gentleman came in with complaints of palpitations. He is known to have paroxysmal atrial fibrillation and takes Xarelto. He came into the hospital complaining of feeling weak, tired and felt his heart rate was racing. He was found to be in atrial fibrillation with rapid ventricular rate. He was given Cardizem bolus and drip and then converted to sinus rhythm and he feels better. At the time of my evaluation, he is in sinus rhythm, insists on going home. Has no chest pain, shortness of breath or palpitation. He sees Dr. To in the office and is scheduled to see him in the next 2 weeks. However, the patient is asymptomatic. He is already on flecainide and apparently had a previous stress test that was negative according to the patient. I have not verified this. He is on flecainide 100 mg b.i.d. and metoprolol tartrate 12.5 mg b.i.d. He is asymptomatic at the time of my evaluation. PAST MEDICAL HISTORY: 1. Paroxysmal atrial fibrillation. 2. Hypertension. 3. Type 2 diabetes. 4. Hyperlipidemia. 5. Apparently according to the patient, he had a negative stress test. I have not verified this. MEDICATIONS: Medications at home include aspirin 81 mg daily, flecainide 100 mg b.i.d., metoprolol tartrate 12.5 mg b.i.d., Xarelto 20 mg daily. He also takes metformin 1000 mg b.i.d., aspirin 81 mg daily, and insulin long-acting at bedtime. He also takes valsartan 160 mg daily. The past medical history is remarkable for paroxysmal atrial fibrillation, hypertension, hyperlipidemia, type 2 diabetes and hypercholesterolemia. PHYSICAL EXAMINATION: On examination, blood pressure is 130/70, pulse rate is 68 per minute, regular. HEENT: Unremarkable. Fundus was not examined by me. Neck is supple. No JVD. I do not hear a carotid bruit. Heart exam reveals S1, S2 heard normally. No significant murmurs. Lungs are clear. Abdomen is soft, nontender. Lower extremities reveal normal pulses. No edema. Central nervous system is normal. EKG revealed atrial fibrillation, rapid rate, minor IVCD, leftward axis. Repeat rhythm strips reveal sinus mechanism. IMPRESSION: 1. Paroxysmal atrial fibrillation. 2. Hypertension. 3. Hyperlipidemia. 4. Type 2 diabetes mellitus. RECOMMENDATIONS: The patient has converted back to sinus rhythm. He is already on flecainide and beta hal, wishes to go home. Advised to see Dr. To in the next week or 2 weeks and he may require a pulmonary vein isolation procedure given the increase in frequency of his atrial fibrillation lately. Discussed my thoughts in detail with the patient and . Thank you very much for the consult. MMODL / IJN: [id number] /
[2020-08-22] MEDS ORDERED: RIVAROXABAN 20 MG TAB PO SCH (21:00)
[2020-08-22] MEDS ORDERED: ATORVASTATIN 40 MG TAB PO SCH (21:00)
[2020-08-23] MEDS ORDERED: ASPIRIN 81 MG PO SCH (09:00)
== END 2020-08-22 11:25 | disposition left against medical advice (07) | DRG 310 ==
LOC: EC 20:54 → 3SCARD 22:58
PROVIDERS: ADMIT Hospitalist; ATTEND Hospitalist
DX: I48.0 Paroxysmal atrial fibrillation (principal); F17.210 Nicotine dependence, cigarettes, uncomplicated; E11.9 Type 2 diabetes mellitus without complications; E78.5 Hyperlipidemia, unspecified; I10 Essential (primary) hypertension; E78.00 Pure hypercholesterolemia, unspecified; Z20.822 Contact with and (suspected) exposure to COVID-19; Z79.01 Long term (current) use of anticoagulants; Z79.82 Long term (current) use of aspirin; Z79.899 Other long term (current) drug therapy; Z79.4 Long term (current) use of insulin; Z79.891 Long term (current) use of opiate analgesic; Z90.49 Acquired absence of other specified parts of digestive tract
CPT/HCPCS: 36415; 71046; 80053; 80061; 81001; 82550; 83735; 83880; 84100; 84484; 85025; 85610; 85730; 87635; 93005; 96361; 96365; 96366; 96375; 96376; 99285

== ENCOUNTER 2020-09-18 21:15 | Emergency (ER) | payer MEDICARE, OTHER ==
--- NOTE | 2020-09-18 21:52 | ED ---
Arrhythmia/Palpitations HPI - General Chief Complaint: Arrhythmia/Palpitations Stated Complaint: Afib, chest pain Time Seen by Provider: 09/18/20 21:42 Source: patient Mode of arrival: wheelchair Limitations: no limitations - History of Present Illness Initial Comments: This patient is a 65-year-old man who presents with complaint that he believes he has gone back into atrial fibrillation. Patient has previous history of atrial fibrillation that he states is controlled medication. He states tonight around 8 PM he noticed that he was feeling when he called palpitations and then also having some associated chest pressure and shortness of breath. Patient states that he was watching television at the time. Patient's states that when the symptoms didn't resolve he came here to be evaluated. He does note that his heart rate seems to have slowed and the chest pressure and the shortness of breath have all resolved. The patient notes that he is scheduled to have an EP study performed on October [address] To. Complaint: palpitations -: hour(s) Context: occurred during rest Arrhythmia History: atrial fibrillation Associated Symptoms: chest pain, shortness of breath - Related Data Home Medications Medication Instructions Recorded Confirmed Aspirin [Adult Low Dose Aspirin EC] 81 mg PO DAILY 08/12/17 09/18/20 Atorvastatin [Lipitor] 40 mg PO HS 08/12/17 09/18/20 Metoprolol Tartrate [Lopressor] 12.5 mg PO BID 08/12/17 09/18/20 metFORMIN HCL 1,000 mg PO BID 08/12/17 09/18/20 Hydrocodone/Acetaminophen [[place] 1 tab PO TID 12/08/17 09/18/20 10-325] Omeprazole [PriLOSEC] 20 mg PO DAILY 12/08/17 09/18/20 Albuterol Inhaler [Ventolin Hfa 2 puff INHALATION RT-QID PRN 08/21/20 09/18/20 Inhaler] Cholecalciferol [Vitamin D3 (25 50 mcg PO DAILY 08/21/20 09/18/20 Mcg = 1000 Iu)] Flecainide Acetate 100 mg PO BID 08/21/20 09/18/20 Insulin Glargine,Hum.rec.anlog 24 unit SQ HS 08/21/20 09/18/20 [Charagld[place]i [place] U-100] Rivaroxaban [Xarelto] 20 mg PO HS 08/21/20 09/18/20 Semaglutide [Ozempic] 1 mg SQ MO 08/21/20 09/18/20 Triamterene-Hctz 37.5-25Mg 1 cap PO DAILY 08/21/20 09/18/20 [Dyazide 37.5-25 Capsule] Umeclidinium [place] [Incruse 1 puff INHALATION RT-DAILY 08/21/20 09/18/20 Ellipta] Valsartan 160 mg PO BID 08/21/20 09/18/20 Vitamin B Complex 1 cap PO DAILY 08/21/20 09/18/20 Vitamin E 180mg 180 mg PO HS 08/21/20 09/18/20 Insulin Aspart [NovoLOG] See Protocol SQ AC-TID 09/18/20 09/18/20 amLODIPine [Norvasc] 2.5 mg PO DAILY 09/18/20 09/18/20 Allergies Allergy/AdvReac Type Severity Reaction Status Date / Time No Known Allergies Allergy Verified 09/18/20 22:32 Review of Systems ROS Statement: Those systems with pertinent positive or pertinent negative responses have been documented in the HPI. ROS Other: All systems not noted in ROS Statement are negative. Constitutional: Denies: fever, chills ENT: Denies: congestion Respiratory: Reports: as per HPI, dyspnea. Denies: cough Cardiovascular: Reports: as per HPI, chest pain, palpitations. Denies: orthopnea, edema, syncope Gastrointestinal: Denies: abdominal pain, nausea, vomiting, diarrhea, melena, hematochezia Genitourinary: Denies: dysuria, hematuria Musculoskeletal: Denies: back pain Skin: Denies: rash Neurological: Denies: headache, weakness, numbness Past Medical History Past Medical History: Atrial Fibrillation, Chest Pain / Angina, Hyperlipidemia, Hypertension History of Any Multi-Drug Resistant Organisms: None Reported Past Surgical History: Ablation, Appendectomy, Orthopedic Surgery Additional Past Surgical History / Comment(s): Ear surgery Past Psychological History: No Psychological Hx Reported Smoking Status: Current every day smoker Past Alcohol Use History: None Reported Past Drug Use History: None Reported General Exam Limitations: no limitations General appearance: alert, in no apparent distress Head exam: Present: atraumatic, normocephalic Eye exam: Present: normal appearance. Absent: scleral icterus, conjunctival injection Neck exam: Present: normal inspection Respiratory exam: Present: normal lung sounds bilaterally. Absent: respiratory distress, wheezes, rales, rhonchi, stridor Cardiovascular Exam: Present: regular rate, irregular rhythm, normal heart sounds. Absent: systolic murmur, diastolic murmur, rubs, gallop GI/Abdominal exam: Present: soft. Absent: distended, tenderness, guarding, rebound, rigid, mass Extremities exam: Present: normal inspection, normal capillary refill. Absent: pedal edema, calf tenderness Back exam: Present: normal inspection. Absent: CVA tenderness (R), CVA tende rness (L) Neurological exam: Present: alert Skin exam: Present: warm, dry, intact, normal color. Absent: rash Course Vital Signs 09/18/20 09/18/20 21:28 22:32 Temperature 98.1 F Pulse Rate 78 74 Respiratory 18 Rate Blood Pressure 151/80 O2 Sat by Pulse 96 Oximetry EKG Findings - EKG Results: EKG: interpreted by RADHA, sinus rhythm (With PACs, rate 78 bpm), normal axis, normal QRS, normal ST/T Medical Decision Making - Medical Decision Making Patient is 65-year-old man with history of atrial fibrillation. By history it sounds like the patient had gone into atrial fibrillation at home. He did take extra dose of his beta hal and appears that this as caused him to revert to sinus rhythm. The patient is given extra magnesium here and also treated mild hypoglycemia. He is feeling well and would like to go home. 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 - Lab Data Result diagrams: 09/18/20 22:32 09/18/20 22:32 Lab Results 09/18/20 09/18/20 09/18/20 Range/Units 22:32 22:32 22:32 WBC 10.0 (3.8-10.6) k/uL RBC 4.97 (4.30-5.90) m/uL Hgb 15.5 (13.0-17.5) gm/dL Hct 44.2 (39.0-53.0) % MCV 89.0 (80.0-100.0) fL MCH 31.2 (25.0-35.0) pg MCHC 35.1 (31.0-37.0) g/dL RDW 12.7 (11.5-15.5) % Plt Count 249 (150-450) k/uL MPV 7.6 Neutrophils % 60 % Lymphocytes % 26 % Monocytes % 6 % Eosinophils % 5 % Basophils % 1 % Neutrophils # 6.0 (1.3-7.7) k/uL Lymphocytes # 2.6 (1.0-4.8) k/uL Monocytes # 0.6 (0-1.0) k/uL Eosinophils # 0.5 (0-0.7) k/uL Basophils # 0.1 (0-0.2) k/uL Sodium 133 L (137-145) mmol/L Potassium 4.5 (3.5-5.1) mmol/L Chloride 104 (98-107) mmol/L Carbon Dioxide 23 (22-30) mmol/L Anion Gap 6 mmol/L BUN 22 H (9-20) mg/dL Creatinine 1.19 (0.66-1.25) mg/dL Est GFR (CKD-EPI)AfAm 73 (>60 ml/min/1.73 sqM) Est GFR (CKD-EPI)NonAf 63 (>60 ml/min/1.73 sqM) Glucose 250 H (74-99) mg/dL Calcium 9.1 (8.4-10.2) mg/dL Magnesium 1.4 L (1.6-2.3) mg/dL Total Bilirubin 0.4 (0.2-1.3) mg/dL AST 20 (17-59) U/L ALT 16 (4-49) U/L Alkaline Phosphatase 87 (38-126) U/L Troponin I 0.014 (0.000-0.034) ng/mL Total Protein 6.3 (6.3-8.2) g/dL Albumin 3.0 L (3.5-5.0) g/dL Disposition Clinical Impression: Palpitations Disposition: HOME SELF-CARE Condition: Good Instructions (If sedation given, give patient instructions): Heart Palpitations (ED) Is patient prescribed a controlled substance at d/c from ED?: No Referrals: None,Stated [REFERRING] - 1-2 days
[2020-09-18] MEDS ORDERED: METOPROLOL TARTRATE 12.5 MG TAB PO STA (21:56)
[2020-09-18 22:33] VITALS: PULSE 74
[2020-09-18 22:44] LABS: Basophils # (A) 0.1 k/uL (0-0.2); Basophils % (A) 1 %; Eosinophils # (A) 0.5 k/uL (0-0.7); Eosinophils % (A) 5 %; HCT 44.2 % (39.0-53.0); HGB 15.5 gm/dL (13.0-17.5); Lymphocytes # (A) 2.6 k/uL (1.0-4.8); Lymphocytes % (A) 26 %; MCH 31.2 pg (25.0-35.0); MCHC 35.1 g/dL (31.0-37.0); Mean Platelet Volume 7.6; Monocytes # (A) 0.6 k/uL (0-1.0); Monocytes % (A) 6 %; Neutrophils % (A) 60 %; Platelet Count 249 k/uL (150-450); RBC 4.97 m/uL (4.30-5.90); RDW 12.7 % (11.5-15.5)
[2020-09-18 22:52] LABS: Calcium 9.1 mg/dL (8.4-10.2); Magnesium 1.4 mg/dL (1.6-2.3); Potassium 4.5 mmol/L (3.5-5.1); Total Bilirubin 0.4 mg/dL (0.2-1.3); Total Protein 6.3 g/dL (6.3-8.2)
--- NOTE | 2020-09-18 22:54 | XR ---
EXAMINATION TYPE: XR chest 1V portable DATE OF EXAM: 09/18/2020 COMPARISON: 08/21/2020 HISTORY: Weakness : There is some coarse interstitial density in both lungs. Heart size is normal. There are no hilar m asses. There is no pleural effusion. Mediastinum is normal. IMPRESSION: There is some mild interstitial pneumonia slightly increased compared to old exam. Normal heart. There is no pleural fluid or cardiomegaly to suggest heart failure.
[2020-09-18] MEDS ORDERED: INSULIN REGULAR 100 UNIT/ML VIAL SQ STA (23:23)
[2020-09-18] MEDS ORDERED: MAGNESIUM SULFATE-D5W PMX 1 GM in DEXTROSE/WATER 1 100ML.BAG IVPB ONE (23:23)
[2020-09-19 02:07] VITALS: BP 136/71; RESP 19; TEMP 98.7
== END 2020-09-19 02:06 | disposition home or self-care (01) ==
LOC: EC 21:15
DX: R00.2 Palpitations (principal); R07.89 Other chest pain; R06.02 Shortness of breath; I48.91 Unspecified atrial fibrillation; E16.2 Hypoglycemia, unspecified; I10 Essential (primary) hypertension; E78.5 Hyperlipidemia, unspecified; F17.200 Nicotine dependence, unspecified, uncomplicated; Z79.01 Long term (current) use of anticoagulants; Z79.4 Long term (current) use of insulin; Z79.899 Other long term (current) drug therapy; Z79.82 Long term (current) use of aspirin
CPT/HCPCS: 36415; 93005 ×2; 80053; 83735; 84484; 85025; 71045; 99285; J3475

== ENCOUNTER → 2020-09-30 | Outpatient (CLI) | payer MEDICARE, OTHER ==
[2020-09-30 13:50] LABS: HCT 43.9 % (39.0-53.0); MCH 31.3 pg (25.0-35.0); MCHC 34.1 g/dL (31.0-37.0); MCV 91.9 fL (80.0-100.0); Mean Platelet Volume 7.3; Platelet Count 285 k/uL (150-450); RBC 4.77 m/uL (4.30-5.90); RDW 12.8 % (11.5-15.5); WBC 8.6 k/uL (3.8-10.6)
[2020-09-30 14:05] LABS: Potassium 5.5 mmol/L (3.5-5.1)
== END | disposition home or self-care (01) ==
LOC: LABPAT 13:05
PROVIDERS: ATTEND Internal Medicine Clinical Cardiac Electrophysiology
DX: Z01.812 Encounter for preprocedural laboratory examination (principal); I48.0 Paroxysmal atrial fibrillation
CPT/HCPCS: 36415; 80051; 82565; 84443; 84520; 85027

== ENCOUNTER 2020-10-05 21:50 | Emergency (ER) | payer MEDICARE, OTHER ==
[2020-10-05] MEDS ORDERED: METOPROLOL TARTRATE 5 MG/5 ML VIAL IVP STA ×2 (22:26→22:38)
--- NOTE | 2020-10-05 22:47 | ED ---
Arrhythmia/Palpitations HPI - General Chief Complaint: Arrhythmia/Palpitations Stated Complaint: A fib Time Seen by Provider: 10/05/20 22:24 Source: patient Mode of arrival: wheelchair Limitations: no limitations - History of Present Illness MD Complaint: irregular heart beat Onset/Timin -: days(s) Context: occurred during rest, change in medication Arrhythmia History: atrial fibrillation Associated Symptoms: anxiety - Related Data Home Medications Medication Instructions Recorded Confirmed Aspirin [Adult Low Dose Aspirin EC] 81 mg PO DAILY 08/12/17 10/01/20 Atorvastatin [Lipitor] 40 mg PO HS 08/12/17 10/01/20 Metoprolol Tartrate [Lopressor] 12.5 mg PO BID 08/12/17 10/01/20 metFORMIN HCL 1,000 mg PO BID 08/12/17 10/01/20 Hydrocodone/Acetaminophen [[place] 1 tab PO TID 12/08/17 10/01/20 10-325] Omeprazole [PriLOSEC] 20 mg PO DAILY 12/08/17 10/01/20 Albuterol Inhaler [Ventolin Hfa 2 puff INHALATION RT-QID PRN 08/21/20 10/01/20 Inhaler] Cholecalciferol [Vitamin D3 (25 50 mcg PO DAILY 08/21/20 10/01/20 Mcg = 1000 Iu)] Flecainide Acetate 100 mg PO BID 08/21/20 10/01/20 Insulin Glargine,Hum.rec.anlog 24 unit SQ HS 08/21/20 10/01/20 [Basaglar Kwikpen U-100] Rivaroxaban [Xarelto] 20 mg PO HS 08/21/20 10/01/20 Semaglutide [Ozempic] 1 mg SQ MO 08/21/20 10/01/20 Triamterene-Hctz 37.5-25Mg 1 cap PO DAILY 08/21/20 10/01/20 [Dyazide 37.5-25 Capsule] Umeclidinium [place] [Incruse 1 puff INHALATION RT-DAILY 08/21/20 10/01/20 Ellipta] Valsartan 160 mg PO BID 08/21/20 10/01/20 Vitamin B Complex 1 cap PO DAILY 08/21/20 10/01/20 Vitamin E 180mg 180 mg PO DAILY 08/21/20 10/01/20 Insulin Aspart [NovoLOG] See Protocol SQ AC-TID 09/18/20 10/01/20 amLODIPine [Norvasc] 2.5 mg PO DAILY 09/18/20 10/01/20 Previous Rx's Medication Instructions Recorded LORazepam [Ativan] 1 mg PO TID 3 Days #9 tab 10/05/20 Allergies Allergy/AdvReac Type Severity Reaction Status Date / Time No Known Allergies Allergy Verified 10/05/20 22:12 Review of Systems ROS Statement: Those systems with pertinent positive or pertinent negative responses have been documented in the HPI. ROS Other: All systems not noted in ROS Statement are negative. Constitutional: Denies: fever, chills Respiratory: Denies: cough, dyspnea Cardiovascular: Reports: palpitations. Denies: chest pain, dyspnea on exertion, orthopnea, edema, syncope Gastrointestinal: Denies: abdominal pain, nausea, vomiting Genitourinary: Denies: dysuria, hematuria Musculoskeletal: Reports: back pain (chronic) Skin: Denies: rash Neurological: Denies: headache, weakness Past Medical History Past Medical History: Atrial Fibrillation, Chest Pain / Angina, Hyperlipidemia, Hypertension History of Any Multi-Drug Resistant Organisms: None Reported Past Surgical History: Ablation, Appendectomy, Orthopedic Surgery Additional Past Surgical History / Comment(s): Ear surgery Past Psychological History: No Psychological Hx Reported Smoking Status: Current every day smoker Past Alcohol Use History: None Reported Past Drug Use History: None Reported General Exam Limitations: no limitations General appearance: alert, in no apparent distress Head exam: Present: atraumatic, normocephalic Eye exam: Present: normal appearance. Absent: scleral icterus, conjunctival injection Neck exam: Present: normal inspection Respiratory exam: Present: normal lung sounds bilaterally. Absent: respiratory distress, wheezes, rales, rhonchi, stridor Cardiovascular Exam: Present: irregular rhythm, normal heart sounds. Absent: systolic murmur, diastolic murmur, rubs, gallop GI/Abdominal exam: Present: soft. Absent: distended, tenderness, guarding, rebound, rigid, mass Extremities exam: Present: normal inspection, normal capillary refill. Absent: pedal edema, calf tenderness Back exam: Present: normal inspection. Absent: CVA tenderness (R), CVA tenderness (L) Neurological exam: Present: alert Skin exam: Present: warm, dry, intact, normal color. 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 ] Respiratory 22 18 Rate Blood Pressure 178/88 O2 Sat by Pulse 95 95 Oximetry 10/06/20 10/06/20 00:14 01:39 Temperature 97.3 F L Pulse Rate 122 H 69 Pulse Rate [ [employer]ing Machine Operator ] Respiratory 18 18 Rate Blood Pressure 135/72 143/72 O2 Sat by Pulse 94 L 97 Oximetry EKG Findings - EKG Results: EKG: interpreted by ERMD, normal axis, normal QRS EKG shows: atrial fibrillation (with rate approximately 117 bpm) - Blocks, [place], Hypertrophy, ST Abn: Repolarization changes or abnormalities: nonspecific abnormality, ST segment, and/or T wave Medical Decision Making - Medical Decision Making patient is 65-year-old man with paroxysmal atrial fibrillation, scheduled to have the PE study with Dr. Boyle on 10/08. He would like to go home if possible. Case discussed with cardiology on-call (Dr. Dent) and recommendation to increase the metoprolol to 25 mg twice a day. - Lab Data Result diagrams: 10/05/20 22:32 10/05/20 22:32 Lab Results 10/05/20 10/05/20 10/05/20 Range/Units 22:32 22:32 22:32 WBC 9.3 (3.8-10.6) k/uL RBC 4.95 (4.30-5.90) m/uL Hgb 14.9 (13.0-17.5) gm/dL Hct 44.8 (39.0-53.0) % MCV 90.4 (80.0-100.0) fL MCH 30.1 (25.0-35.0) pg MCHC 33.3 (31.0-37.0) g/dL RDW 13.2 (11.5-15.5) % Plt Count 276 (150-450) k/uL MPV 8.5 Neutrophils % 60 % Lymphocytes % 26 % Monocytes % 7 % Eosinophils % 4 % Basophils % 1 % Neutrophils # 5.6 (1.3-7.7) k/uL Lymphocytes # 2.4 (1.0-4.8) k/uL Monocytes # 0.7 (0-1.0) k/uL Eosinophils # 0.4 (0-0.7) k/uL Basophils # 0.1 (0-0.2) k/uL PT 9.7 (9.0-12.0) sec INR 0.9 (<1.2) APTT 25.1 (22.0-30.0) sec Sodium 135 L (137-145) mmol/L Potassium 4.5 (3.5-5.1) mmol/L Chloride 107 (98-107) mmol/L Carbon Dioxide 23 (22-30) mmol/L Anion Gap 5 mmol/L BUN 28 H (9-20) mg/dL Creatinine 1.13 (0.66-1.25) mg/dL Est GFR (CKD-EPI)AfAm 78 (>60 ml/min/1.73 sqM) Est GFR (CKD-EPI)NonAf 67 (>60 ml/min/1.73 sqM) Glucose 288 H (74-99) mg/dL POC Glucose (mg/dL) (75-99) mg/dL POC Glu Survey Technologist ID Calcium 9.0 (8.4-10.2) mg/dL Magnesium 1.8 (1.6-2.3) mg/dL Total Bilirubin 0.3 (0.2-1.3) mg/dL AST 21 (17-59) U/L ALT 16 (4-49) U/L Alkaline Phosphatase 92 (38-126) U/L Troponin I (0.000-0.034) ng/mL Total Protein 6.3 (6.3-8.2) g/dL Albumin 3.2 L (3.5-5.0) g/dL 10/05/20 10/05/20 Range/Units 22:32 23:45 WBC (3.8-10.6) k/uL RBC (4.30-5.90) m/uL Hgb (13.0-17.5) gm/dL Hct (39.0-53.0) % MCV (80.0-100.0) fL MCH (25.0-35.0) pg MCHC (31.0-37.0) g/dL RDW (11.5-15.5) % Plt Count (150-450) k/uL MPV Neutrophils % % Lymphocytes % % Monocytes % % Eosinophils % % Basophils % % Neutrophils # (1.3-7.7) k/uL Lymphocytes # (1.0-4.8) k/uL Monocytes # (0-1.0) k/uL Eosinophils # (0-0.7) k/uL Basophils # (0-0.2) k/uL PT (9.0-12.0) sec INR (<1.2) APTT (22.0-30.0) sec Sodium (137-145) mmol/L Potassium (3.5-5.1) mmol/L Chloride (98-107) mmol/L Carbon Dioxide (22-30) mmol/L Anion Gap mmol/L BUN (9-20) mg/dL Creatinine (0.66-1.25) mg/dL Est GFR (CKD-EPI)AfAm (>60 ml/min/1.73 sqM) Est GFR (CKD-EPI)NonAf (>60 ml/min/1.73 sqM) Glucose (74-99) mg/dL POC Glucose (mg/dL) 278 H (75-99) mg/dL POC Glu Survey Technologist ID Jami Holloway Calcium (8.4-10.2) mg/dL Magnesium (1.6-2.3) mg/dL Total Bilirubin (0.2-1.3) mg/dL AST (17-59) U/L ALT (4-49) U/L Alkaline Phosphatase (38-126) U/L Troponin I <0.012 (0.000-0.034) ng/mL Total Protein (6.3-8.2) g/dL Albumin (3.5-5.0) g/dL Disposition Clinical Impression: Atrial fibrillation Disposition: HOME SELF-CARE Condition: Good Instructions (If sedation given, give patient instructions): A-fib (Atrial Fibrillation) (DC) Additional Instructions: call Dr. Prieto office to light him know that you are in and about the medication change. Return immediately if you develop any new symptoms or if there is worsening in your condition in any way. Prescriptions: LORazepam [Ativan] 1 mg PO TID 3 Days #9 tab Is patient prescribed a controlled substance at d/c from ED?: No Referrals: Nonstaff,Physician [Primary Care Provider] - 1-2 days
[2020-10-05 23:05] LABS: Basophils # (A) 0.1 k/uL (0-0.2); Basophils % (A) 1 %; Eosinophils # (A) 0.4 k/uL (0-0.7); Eosinophils % (A) 4 %; HCT 44.8 % (39.0-53.0); HGB 14.9 gm/dL (13.0-17.5); Lymphocytes # (A) 2.4 k/uL (1.0-4.8); Lymphocytes % (A) 26 %; MCH 30.1 pg (25.0-35.0); MCHC 33.3 g/dL (31.0-37.0); MCV 90.4 fL (80.0-100.0); Mean Platelet Volume 8.5; Monocytes # (A) 0.7 k/uL (0-1.0); Monocytes % (A) 7 %; Neutrophils # (A) 5.6 k/uL (1.3-7.7); Neutrophils % (A) 60 %; Platelet Count 276 k/uL (150-450); RBC 4.95 m/uL (4.30-5.90); RDW 13.2 % (11.5-15.5); WBC 9.3 k/uL (3.8-10.6)
[2020-10-05 23:21] LABS: Albumin 3.2 g/dL (3.5-5.0); Magnesium 1.8 mg/dL (1.6-2.3); Potassium 4.5 mmol/L (3.5-5.1); Total Bilirubin 0.3 mg/dL (0.2-1.3); Total Protein 6.3 g/dL (6.3-8.2)
[2020-10-05 23:22] LABS: INR 0.9 (<1.2); Partial Thromboplastin Time 25.1 sec (22.0-30.0); Prothrombin Time 9.7 sec (9.0-12.0)
[2020-10-05] MEDS ORDERED: INSULIN REGULAR 100 UNIT/ML VIAL SQ STA (23:33)
[2020-10-05] MEDS ORDERED: SODIUM CHLORIDE 0.9% 500 ML 500 ML IV STA (23:36)
[2020-10-05 23:46] LABS: Glucose,Whole Blood 278 mg/dL (75-99)
--- NOTE | 2020-10-05 23:46 | XR ---
EXAMINATION TYPE: XR chest 1V portable DATE OF EXAM: 10/05/2020 COMPARISON: 09/18/2020 HISTORY: Dysrhythmia TECHNIQUE: FINDINGS: There is bilateral mild pulmonary interstitial infiltrates. Heart size is normal. There is no definite pleural effusion. There are no hilar masses. Mediastinum is normal. There are chest leads . IMPRESSION: Pulmonary interstitial infiltrates not significantly different than last exam. This could be some chr onic interstitial pneumonia. No pleural fluid or cardiomegaly seen to suggest heart failure.
[2020-10-05 23:47] VITALS: RESP 18
[2020-10-05] MEDS ORDERED: LORazepam 2 MG/ML INJ IV STA (23:53)
[2020-10-06 01:40] VITALS: BP 143/72; PULSE 69; TEMP 97.3
== END 2020-10-06 01:40 | disposition home or self-care (01) ==
LOC: EC 21:50
DX: I48.91 Unspecified atrial fibrillation (principal); E78.5 Hyperlipidemia, unspecified; I10 Essential (primary) hypertension; F17.200 Nicotine dependence, unspecified, uncomplicated; Z79.82 Long term (current) use of aspirin; Z79.899 Other long term (current) drug therapy
CPT/HCPCS: 36415; 93005; 80053; 83735; 84484; 85025; 85610; 85730; 71045; 99285; 96374; 96375; 96372; J2060

== ENCOUNTER 2020-10-07 06:06 | Day surgery (SDC) | payer MEDICARE, OTHER ==
[2020-10-01 14:11] VITALS: BMI 31.6
[~2020-10-07 06:06] MED LIST: LACTATED RINGERS 1,000 ML IV SCH; MIDAZOLAM 2 MG/2 ML VIAL IV PRN; SODIUM CHLORIDE 0.9% 1,000 ML IV SCH
[2020-10-07 06:28] LABS: Glucose,Whole Blood 187 mg/dL (75-99)
[2020-10-07 07:16] LABS: ALT 21 U/L (4-49); AST 39 U/L (17-59); African American GFR (CKD) >90 (>60 ml/min/1.73 sqM); Albumin 3.4 g/dL (3.5-5.0); Alkaline Phosphatase 79 U/L (38-126); Anion Gap 5 mmol/L; Blood Urea Nitrogen 26 mg/dL (9-20); Calcium 9.2 mg/dL (8.4-10.2); Carbon Dioxide 25 mmol/L (22-30); Chloride 110 mmol/L (98-107); Glucose 206 mg/dL (74-99); Non-African American GFR(CKD) 78 (>60 ml/min/1.73 sqM); Potassium 4.9 mmol/L (3.5-5.1); Sodium 140 mmol/L (137-145); Total Bilirubin 0.4 mg/dL (0.2-1.3); Total Protein 6.8 g/dL (6.3-8.2)
[2020-10-07] MEDS ORDERED: ISOPROTERENOL 250 MCG/1.25 ML SYR IV ONE (07:21)
[2020-10-07] MEDS ORDERED: MIDAZOLAM 2 MG/2 ML VIAL ONE (07:21)
[2020-10-07] MEDS ORDERED: LIDOCAINE 1% INJ 10MG/ML (20 ML MDV) ONE (07:21)
[2020-10-07] MEDS ORDERED: PROTAMINE SULFATE 10 MG/ML 5 ML VIAL IV ONE (07:21)
[2020-10-07] MEDS ORDERED: HEPARIN SODIUM,PORCINE 10,000 UNIT/ML 1 ML VIAL ONE (07:21)
[2020-10-07] MEDS ORDERED: SODIUM CHLORIDE 0.9% 250 ML BAG ONE (07:21)
[2020-10-07] MEDS ORDERED: fentaNYL (PF) 50 MCG/ML 2 ML AMP ONE (07:21)
[2020-10-07] MEDS ORDERED: SUCCINYLCHOLINE CHLORIDE 100 MG/5 ML SYR IV ONE (07:21)
[2020-10-07] MEDS ORDERED: PROPOFOL 10 MG/ML 20 ML VIAL IV ONE (07:21)
[2020-10-07] MEDS ORDERED: ceFAZolin 1,000 MG VIAL ONE (07:21)
--- NOTE | 2020-10-07 07:59 | P.HPCAR ---
History of Present Illness This is Dr. To dictating an H/P on this patient The patient was interviewed and examined IMPRESSION / ASSESSMENT: Hypertension Atrial fibrillation, paroxysmal, with spontaneous conversion Rapid ventricular response during atrial fibrillation Type 2 diabetes PLAN: Proceed with AF ablation is planned under general anesthesia Arterial blood pressure monitoring through the procedure, invasive blood pressure monitoring Will increase amlodipine to 10 mg by mouth daily subsequently Continue Xarelto Check hemoglobin A1c Check lipid panel HPI Patient has a history of symptomatic paroxysmal atrial fibrillation with RVR and was admitted to the hospital for the same He was seen in the office in follow-up and continued to have paroxysms of atrial fibrillation on the loop monitor despite flecainide At that time 2.5 mg of amlodipine was added for blood pressure control, in addition to his current regimen This morning the automatic blood pressure cuff showed readings of 235/123 mmHg ID confirmed it by checking it manually By auscultation method it was 180/100 mmHg By the palpation method the systolic blood pressure was 178 mmHg, corresponding to the auscultatory method The patient is completely asymptomatic he denies any symptoms at all and says he feels great today No headache no blurred vision no chest discomfort nor orthopnea no shortness of breath He looks comfortable He is in sinus rhythm heart rates are normal ROS: No fever chills or rigors, no cough, phlegm or expectoration, no nausea, vomiting or diarrhea, no hematuria, dysuria, no musculoskeletal complaints, no strokes or seizures, no skin lesions. EXAMINATION: Marital blood pressure 180 100 mmHg Breath sounds are clear no rhonchi no crackles No JVD Normal heart sounds no murmurs Soft abdomen nontender No lower extremity edema REVIEW OF LABS, ECG & MEDICAL DATA Sodium 140, potassium 4.9, BUN is 26, creatinine 0.99 Glucose 206 AST 39 and ALT 21 Physical Exam Vitals: Vital Signs Temp Pulse Resp BP BP Pulse Ox 10/07/20 07:37 180/100 10/07/20 06:28 99.1 F 68 16 206/95 235/123 99 Intake and Output 10/06/20 10/07/20 10/07/20 22:59 06:59 14:59 Intake Total 50 Balance 50 Intake: IV 50 Other: Weight 108.8 kg Past Medical History Past Medical History: Atrial Fibrillation, Chest Pain / Angina, Hyperlipidemia, Hypertension Additional Past Medical History / Comment(s): SEE DR TO'S H&P History of Any Multi-Drug Resistant Organisms: None Reported Past Surgical History: Ablation, Appendectomy, Orthopedic Surgery Additional Past Surgical History / Comment(s): Ear surgery Additional Past Anesthesia/Blood Transfusion Reaction / Comment(s): STATES HE HAD ANESTH. ONCE WHEN GETTING CARDIOVERTED IN ER AND IT MADE HIM "CRAZY" Past Psychological History: No Psychological Hx Reported Smoking Status: Current every day smoker Past Alcohol Use History: None Reported Past Drug Use History: None Reported - Past Family History Mother Family Medical History: No Reported History Physical Examination Vital Signs Temp Pulse Resp BP BP Pulse Ox 10/07/20 07:37 180/100 10/07/20 06:28 99.1 F 68 16 206/95 235/123 99 Intake and Output 10/06/20 10/07/20 10/07/20 22:59 06:59 14:59 Intake Total 50 Balance 50 Intake: IV 50 Other: Weight 108.8 kg Results 10/07/20 06:25 Cardiac Enzymes 10/07/20 Range/Units 06:25 AST 39 (17-59) U/L Comprehensive Metabolic Panel 10/07/20 Range/Units 06:25 Sodium 140 (137-145) mmol/L Potassium 4.9 (3.5-5.1) mmol/L Chloride 110 H (98-107) mmol/L Carbon Dioxide 25 (22-30) mmol/L BUN 26 H (9-20) mg/dL Creatinine 0.99 (0.66-1.25) mg/dL Glucose 206 H (74-99) mg/dL Calcium 9.2 (8.4-10.2) mg/dL AST 39 (17-59) U/L ALT 21 (4-49) U/L Alkaline Phosphatase 79 (38-126) U/L Total Protein 6.8 (6.3-8.2) g/dL Albumin 3.4 L (3.5-5.0) g/dL Current Medications Generic Name Dose Route Start Last Admin Trade Name Freq PRN Reason Stop Dose Admin Hydromorphone HCl 0.5 mg 10/07/20 07:00 Hydromorphone 0.5 Mg/0.5 Ml Syringe IVP 10/07/20 23:00 Q5M PRN Pain Control Midazolam HCl 2 mg 10/07/20 05:49 Midazolam 2 Mg/2 Ml Vial IV 10/07/20 23:00 ONCE PRN Anxiety Intake and Output 10/06/20 10/07/20 10/07/20 22:59 06:59 14:59 Intake Total 50 Balance 50 Intake: IV 50 Other: Weight 108.8 kg 10/07/20 06:25
[2020-10-07] MEDS ORDERED: LIDOCAINE 1% INJ 10MG/ML (20 ML MDV) SQ ONE (08:16)
[2020-10-07] MEDS ORDERED: HEPARIN SOD,PORK IN 0.45% NACL 25,000 UNIT in 0.45% NACL 1 250ML.BAG IV ONE (08:22)
[2020-10-07] MEDS ORDERED: HEPARIN SODIUM (1,000 UNIT/ML) 1,000 UNIT in SODIUM CHLORIDE 0.9% 1,000 ML IRRIGATION ONE (08:22)
[2020-10-07] MEDS ORDERED: IOPAMIDOL-370 100ML BTL INJ ONE (10:30)
[2020-10-07 10:43] LABS: Cholesterol 171 mg/dL (<200); HDL Cholesterol 39 mg/dL (40-60); LDL Cholesterol,Calculated 64 mg/dL (0-99); Triglycerides 338 mg/dL (<150)
[2020-10-07] MEDS ORDERED: ACETAMINOPHEN TAB 325 MG TAB PO PRN (11:57)
[2020-10-07] MEDS ORDERED: ACETAMINOPHEN IV (For NPO) 1,000 MG in EMPTY BAG 1 BAG IVPB ONE (11:57)
[2020-10-07] MEDS: HYDROmorphone 0.5 MG/0.5 ML SYRINGE IVP PRN ×4 (12:00→12:43)
[2020-10-07] MEDS ORDERED: ALBUTEROL NEBULIZED 2.5 MG/3 ML INHALATION PRN (12:03)
[2020-10-07] MEDS ORDERED: LABETALOL SYRINGE 5 MG/ML IVP ONE ×2 (12:06→12:15)
[2020-10-07 12:23] LABS: Glucose,Whole Blood 150 mg/dL (75-99)
--- NOTE | 2020-10-07 12:33 | P.EPPROC ---
- EP Procedure Note Electrophysiology Procedure Note: PROCEDURE A. fib ablation includin. PVI 2. Linear ablation in the septum of the left atrium DIAGNOSIS Atrial fibrillation, symptomatic, refractory to therapy Associated with RVR Paroxysmal RESULT No left atrial appendage mass seen on intracardiac echo Calcification in the proximal left circumflex and LAD as well as distal left main, on ICE Patent coronary arteries Successful A. fib ablation/pulmonary vein isolation of all veins using cryo- ablation Complete entrance block in all 4 veins confirmed Linear ablation posterior left septum, along fractionated electrograms No inducible atrial fibrillation on or off Isuprel thereafter No evidence for phrenic nerve injury Esophageal deflection YES Electrical cardioversion with a synchronized shock across the chest NO PROCEDURE DETAILS Patient was brought to the EP lab in a fasting state. Written informed consent was obtained prior to the procedure. Procedure performed under general anesthesia After initial muscle relaxant use, muscle relaxants were not given thereafter in order to assess phrenic nerve during procedure. Patient prepped and draped as per protocol Full cryo-set up with standard preparation of the cryoablation tools done. Femoral Venous access obtained on the right and left groins Venous and arterial Sheaths placed. Diagnostic catheters for the high right atrium, phrenic nerve stimulation and pacing, His bundle, RV and coronary sinus placed Intracardiac echo catheter placed. Long sheath placed in the right atrium Left and right transseptal catheterization performed under intracardiac echo guidance. Intravenous heparin with aCT above 300 Later, catheter positioning and balloon positioning in the left atrium, under intracardiac echo guidance Diagnostic EP study with Drug infusion, high-dose Isuprel, no atrial fibrillation Coronary sinus pacing and recording Baseline measurements Sinus cycle length 1129, TN interval 168, QRS 95 and QT 406 ms AH 69 ms and HV interval 31 ms Atrial pacing performed from the high right atrium and the coronary sinus Burst stimulation in the left atrial roof Burst ablation from the coronary sinus Sinus node recovery times at 504 100 ms were 1378 and 1428 ms respectively. Mildly prolonged corrected sinus node recovery times AV node Wenckebach block 370 ms Transseptal catheterization performed RA pressure 22/5/13 LA pressure 21/10/14 Transseptal catheterization performed with standard sheath. The cryoablation sheath was then placed with an over the wire exchange without any acute complications. All 4 pulmonary veins were isolated in the following sequence: Left superior followed by left inferior followed by right superior followed by right inferior The cryo-ablation balloon was placed at the os of each vein 1.5 mL of IV dye was injected to confirm an occluded vein Goal during cryoablation was to achieve complete occlusion of the pulmonary vein, achieve -30 degrees C at 30 seconds and achieve -40 degrees C at 60 seconds and a time to effect of less than 60-90 seconds, . If not the balloon was repositioned to obtain this result After completion of Cryoblation with durations from 180-240 seconds, entrance block was confirmed with the Attain circular catheter in a roving fashion around the antrum of the pulmonary veins Phrenic nerve pacing was performed from the SVC, right innominate vein area and diaphragm voltage was monitored. Diaphragmatic contractions were also monitored manually for strength of contraction. Parameter goals for each cryo freeze Complete occlusion of the appropriate vein -30 degrees C by 30 seconds -40 degrees C by 60 seconds Minimum between minus 40-55 degrees C Thaw time greater than 10 seconds Balloon visualized by intracardiac echo The esophagus was intubated. Esophageal Temperature monitoring with a CIRCA catheter formed. Esophageal deflection for hypothermia of the esophagus below 30 degrees C Left superior pulmonary vein Complete isolation, entrance block Left inferior pulmonary vein Complete isolation, entrance block Right superior pulmonary vein, during phrenic nerve pacing Complete isolation, entrance block Right middle and inferior pulmonary vein, during phrenic nerve pacing Complete isolation, entrance block Each was individually isolated At the end of the procedure the Achieve catheter was once again used to check for entrance block Phrenic nerve stimulation was performed to confirm diaphragmatic stimulation the end of the procedure Cine fluoroscopy was performed at the very end of the procedure to confirm movement of both diaphragms with inspiration and expiration RF ablation catheter placed in the left atrium after completion of Cryoblation Voltage mapping performed Completely isolated pulmonary veins Roof of the left atrium measured 4.1-5.2 cm from the isolated segments of superior pulmonary veins Fractionated electrograms noted along the posterior septum of the left atrium RF ablation, linear ablation performed in the septum, along fractionated signals This RF line was joint of the right superior and right inferior pulmonary veins The septum was completely isolated to the end of this procedure At the end of the procedure the patient was extubated Heparin was reversed Venous sheaths were removed and hemostasis assured PROCEDURES PERFORMED Diagnostic EP study CS pacing and recording Left and right transseptal catheterization 3D mapping Intracardiac echocardiography Pulmonary vein isolation with transseptal and comprehensive EPS, [id number] Linear ablation, left atrium, +[id number] Drug Infusion +[id number]
[2020-10-07] MEDS ORDERED: amLODIPine 5 MG TAB ONE (14:24)
[2020-10-07] MEDS: amLODIPine 5 MG TAB PO SCH (14:25)
[2020-10-07] MEDS: HYDROcodone/APAP 10-325MG 1 EACH TAB PO SCH ×2 (14:27→21:10)
[2020-10-07] MEDS: LORazepam 1 MG TAB PO SCH ×2 (16:26→21:33)
[2020-10-07] MEDS ORDERED: INSULIN DETEMIR (LEVEMIR) 100 UNIT/ML SYR SQ SCH (21:00)
[2020-10-07] MEDS ORDERED: RIVAROXABAN 20 MG TAB PO SCH (21:00)
[2020-10-07] MEDS ORDERED: ATORVASTATIN 40 MG TAB PO SCH (21:00)
[2020-10-07 21:05] LABS: Glucose,Whole Blood 156 mg/dL (75-99)
[2020-10-07] MEDS: METOPROLOL TARTRATE 12.5 MG TAB PO SCH (21:10)
[2020-10-07] MEDS: FLECAINIDE 50 MG TAB PO SCH (21:26)
[2020-10-07] MEDS: VALSARTAN 160 MG TAB PO SCH (21:26)
[2020-10-07 21:53] VITALS: RESP 17
[2020-10-08 06:47] LABS: Glucose,Whole Blood 133 mg/dL (75-99)
[2020-10-08] MEDS: HYDROcodone/APAP 10-325MG 1 EACH TAB PO SCH (07:05)
[2020-10-08] MEDS ORDERED: PANTOPRAZOLE 40 MG TABLET PO SCH (07:30)
[2020-10-08 07:33] VITALS: BP 151/84; PULSE 73; TEMP 97.7
[2020-10-08] MEDS: METOPROLOL TARTRATE 12.5 MG TAB PO SCH (08:14)
[2020-10-08] MEDS: FLECAINIDE 50 MG TAB PO SCH (08:15)
[2020-10-08] MEDS: LORazepam 1 MG TAB PO SCH (08:15)
[2020-10-08] MEDS: amLODIPine 5 MG TAB PO SCH (08:15)
[2020-10-08] MEDS: VALSARTAN 160 MG TAB PO SCH (08:15)
[2020-10-08] MEDS ORDERED: ASPIRIN 81 MG PO SCH (09:00)
[2020-10-08] MEDS ORDERED: TRIAMTERENE-HCTZ 37.5-25MG 1 EACH CAP PO SCH (09:00)
[2020-10-08 11:55] LABS: Glucose,Whole Blood 284 mg/dL (75-99)
--- NOTE | 2020-10-08 16:01 | DS ---
DISCHARGE SUMMARY Mr. Gonzalez has recurrent paroxysmal atrial fibrillation with RVR despite drug therapy. He underwent an atrial fibrillation ablation yesterday with pulmonary vein isolation and linear ablation in the septum. On intracardiac echo, his distal left main and the proximal portion of the left circumflex in the LAD were heavily calcified, although the lumen was patent on intracardiac echo. He is on atorvastatin 40 mg p.o. daily and his LDL is 64 mg/dL. Unfortunately, his triglycerides are still greater than 330 mg/dL. This morning after the ablation, he has a sore throat. He has no chest discomfort. He had a bit of bruising in the left groin, but this has healed well. He is ambulating in the room and sitting comfortably. He has no respiratory distress. On examination, his blood pressure is better. Yesterday when he came in, his blood pressure was quite high 180/100 mmHg and I increased the dose of amlodipine to 10 mg p.o. daily. This morning his blood pressure is 159/84 mmHg. He is afebrile, 97.7 degrees Fahrenheit, pulse rate in the 70s. No JVD. Normal heart sounds. No rub. Lungs are clear. No rhonchi. Abdomen is soft. No lower extremity edema. IMPRESSION: 1. Atrial fibrillation ablation for paroxysmal atrial fibrillation with pulmonary vein isolation and linear ablation in the septum. 2. Calcified proximal left circumflex and LAD in the distal left main, but with patent lumen. 3. Uncontrolled hypertension. 4. Dyslipidemia with hypertriglyceridemia greater than 330. 5. LDL of 64 mg/dL on atorvastatin 40 mg p.o. daily. 6. Normal TSH. 7. Normal electrolytes. PLAN: 1. Continue anticoagulation for stroke prevention with Xarelto. 2. Reduce the dose of flecainide to 50 mg twice daily. 3. In view of the prominent calcification in the left coronary system, I will increase the dose of atorvastatin to 80 mg p.o. daily and the goal for LDL will be less than 50 mg/dL. 4. In the future, I will add icosapent ethyl to his regimen to lower his triglyceride rate. 5. The dose of amlodipine is being increased to 10 mg p.o. daily and we will reassess his blood pressure in about 2 weeks. 6. Flecainide dose to be reduced to 50 mg twice daily. I will see him again post discharge in about 7-10 days. This was discussed with the patient and I spoke to his on the phone this morning regarding the changes. MMODL / IJN: [id number] /
[2020-10-09] MEDS ORDERED: metFORMIN 500 MG TAB PO SCH (17:30)
[2020-10-13] MEDS ORDERED: SEMAGLUTIDE 1 MG/0.75 ML SQ SCH (09:00)
== END 2020-10-08 12:40 | disposition home or self-care (01) ==
LOC: CATHEP 06:06 → 6NMEDSUR 14:59 → CATHEP 10-08 12:40
PROVIDERS: ATTEND Internal Medicine Clinical Cardiac Electrophysiology
DX: I48.0 Paroxysmal atrial fibrillation (principal); I25.10 Atherosclerotic heart disease of native coronary artery without angina pectoris; E11.9 Type 2 diabetes mellitus without complications; I10 Essential (primary) hypertension; E78.5 Hyperlipidemia, unspecified; F17.200 Nicotine dependence, unspecified, uncomplicated; Z79.82 Long term (current) use of aspirin; Z79.01 Long term (current) use of anticoagulants; Z79.899 Other long term (current) drug therapy; Z79.4 Long term (current) use of insulin
CPT/HCPCS: 93623; 93662; 93613; 93656; 93657; 80053; 80061; 84443; 87635; C1759; C1769 ×4; C1894 ×2; C1730 ×2; C1893; C1733; C1766; C1732; J2250; J2720; J1644 ×3; J0690; J2001; J3010; J0131; J0330; J2704; J1170; Q9967

== ENCOUNTER → 2022-01-11 | Outpatient (CLI) | payer MEDICARE, OTHER ==
[2022-01-11 22:14] LABS: HCT 38.5 % (39.6-50.0); HGB 12.6 g/dL (13.0-17.0); MCH 30.3 pg (27.0-32.0); MCHC 32.7 g/dL (32.0-37.0); MCV 92.5 fL (80.0-97.0); Mean Platelet Volume 11.5 fL (9.5-12.2); NRBC Per 100 WBC 0 /100 WBCS (0.0-0.0); Platelet Count 337 X 10*3/uL (140-440); RBC 4.16 X 10*6/uL (4.40-5.60); RDW 14.6 % (11.5-14.5); WBC 11.03 X 10*3/uL (4.50-10.00)
[2022-01-11 23:43] LABS: African American GFR (CKD) 49.1 (60.0-200.0); Anion Gap 10.5 mmol/L (10.00-18.00); Blood Urea Nitrogen 25.7 mg/dL (9.0-27.0); Carbon Dioxide 21.1 mmol/L (20.0-27.5); Non-African American GFR(CKD) 42.3 (60.0-200.0); Potassium 5.2 mmol/L (3.5-5.5)
== END | disposition home or self-care (01) ==
LOC: LABPAT 16:20
PROVIDERS: ATTEND Internal Medicine Interventional Cardiology
DX: Z01.812 Encounter for preprocedural laboratory examination (principal); I48.0 Paroxysmal atrial fibrillation
CPT/HCPCS: 80051; 82565; 84520; 85027

== ENCOUNTER 2022-01-18 07:42 | Day surgery (SDC) | payer MEDICARE, OTHER ==
[2022-01-14 09:57] VITALS: BMI 30.7
[~2022-01-18 07:42] MED LIST changes: +ALPRAZolam 0.25 MG TAB PO PRN; +ALPRAZolam 0.5 MG TAB PO PRN; +ASPIRIN 325 MG TAB PO STA; +ATORVASTATIN 80 MG TAB PO STA; -LACTATED RINGERS 1,000 ML IV SCH; -MIDAZOLAM 2 MG/2 ML VIAL IV PRN; +NITROGLYCERIN SL TABS 0.4 MG TAB SUBLINGUAL PRN; -SODIUM CHLORIDE 0.9% 1,000 ML IV SCH; +SODIUM CHLORIDE 0.9% 1,000 ML in EMPTY BAG 1 BAG IV SCH
[2022-01-18] MEDS ORDERED: SODIUM CHLORIDE 0.9% 1,000 ML IV ONE ×2 (07:51)
[2022-01-18] MEDS ORDERED: SODIUM CHLORIDE 0.9% 1,000 ML in EMPTY BAG 1 BAG IV ONE (08:00)
[2022-01-18 08:16] LABS: Glucose,Whole Blood 94 mg/dL (70-110)
[2022-01-18 08:23] VITALS: TEMP 98.6
[2022-01-18] MEDS ORDERED: HEPARIN SODIUM 1,000 UN/ML (10ML VL) ONE (10:04)
[2022-01-18] MEDS ORDERED: VERAPAMIL 2.5 MG/ML 2 ML AMP ONE (10:04)
[2022-01-18] MEDS ORDERED: MIDAZOLAM 2 MG/2 ML VIAL IV ONE (10:35)
[2022-01-18] MEDS ORDERED: LIDOCAINE 1% INJ 10MG/ML (5 ML VIAL-PF) SQ ONE (10:37)
[2022-01-18] MEDS ORDERED: VERAPAMIL SYRINGE (5 MG/10 ML) INTRAARTER ONE (10:38)
[2022-01-18] MEDS: HEPARIN SODIUM 1,000 UN/ML (10ML VL) IV ONE ×2 (10:45→10:53)
[2022-01-18] MEDS ORDERED: ADENOSINE 90 MG in SODIUM CHLORIDE 0.9% 60 ML IVP ONE (11:02)
[2022-01-18] MEDS ORDERED: IOPAMIDOL-370 125ML BTL INJ ONE (11:08)
[2022-01-18] MEDS ORDERED: SODIUM CHLORIDE 0.9% 1,000 ML IV SCH (11:15)
[2022-01-18] MEDS ORDERED: RX INFO: IV CONTRAST WAS GIVEN 1 EACH MISC MISCELLANE PRN (11:15)
--- NOTE | 2022-01-18 11:20 | P.PCN ---
Date of Procedure: 01/18/22 Operative Findings: CARDIAC CATHETERIZATION PERFORMING PHYSICIAN: Harsha Kendrick MD, RPVI PROCEDURE PERFORMED: 1. Selective right and left coronary angiogram 2. Left heart catheterization 3. Fractional flow reserve FFR of the RCA INDICATION: This is a 66-year-old gentleman who sees Dr. To in the office regularly was evaluated for preoperative cardiac assessment before noncardiac surgery. Myocardial perfusion imaging stress test was performed and showed anteroapical ischemia. In the light of that a heart catheterization was advised COMPLICATION: None APPROACH: Right radial artery LEVEL OF SEDATION: Moderate with a sedation length of 27 minutes PROCEDURE DESCRIPTION: After obtaining an informed consent, the patient was brought to cardiac label printer. Local anesthesia was performed using lidocaine subcutaneously. The right radial artery was cannulated using Seldinger technique, the guidewire passed easily, following that we advanced a 5-[place] sheath dilator assembly, the wire and dilator were removed and sheath was flushed. Following that, 2 mg of verapamil along with 06804 unit heparin were given. Selective right and left coronary angiogram using a 6-[place] JR4 and JL 3.5 catheters. Following that we did left heart catheterization using 6-[place] pigtail catheter. The procedure was completed there was no complication. SELECTIVE CORONARY ANGIOGRAM: The right coronary artery: Large-caliber vessel and a dominant vessel. The mid RCA is calcified with tubular lesion up to about 60-70%. FFR was performed and came in to 0.83 which is nonischemic. The distal RCA has mild disease only and bifurcates into PDA and PLV branches. Left main: Calcified was mild disease appears to be in the range of 20-30%. The left circumflex: Large caliber vessel nondominant vessel. The proximal LCx has a lesion appeared to be in the range of 30% to 40%. Gives rises into a large OM branch which appeared to be angiographically normal. The left anterior descending artery: Large-caliber vessel. The LAD proximally has mild disease only. The mid and distal LAD appeared to be also have mild disease only. The LAD gives rises into a small diagonal branch which appeared to be having mild disease only as well HEMODYNAMICS: The LVEDP was 18 mmHg was no significant gradient across aortic valve FFR OF THE RCA: After zeroing the Doppler wire and equalizing between the Doppler wire and the guiding catheter which will JR4 guiding catheter with an FFR her IV adenosine infusion and that came in to be an 0.83 which is above the cutoff of 0.80 to perform angioplasty. At that point angioplasty was deferred and the patient will be treated medically. CONCLUSION: 1. Intermediate lesion involving the mid RCA. FFR was performed and came in to be 0.83 which is above the ischemic threshold 2. Diya-ty-akjrdzcg disease involving the left coronary system 3. Elevated left-sided filling pressure POSTPROCEDURE MANAGEMENT: Medical treatment and follow-up with the patient
[2022-01-18] MEDS ORDERED: hydrALAZINE HCL 20 MG/ML 1 ML VIAL IVP STA (11:24)
[2022-01-18] MEDS ORDERED: HYDROcodone/APAP 10-325MG 1 EACH TAB ONE (11:27)
[2022-01-18 12:25] VITALS: RESP 16
[2022-01-18] MEDS ORDERED: SODIUM CHLORIDE 0.9% 500 ML 500 ML IV ONE (14:00)
[2022-01-18 16:00] VITALS: BP 162/78; PULSE 66
== END 2022-01-18 16:05 | disposition home or self-care (01) ==
LOC: CATHCVL 07:42
PROVIDERS: ATTEND Internal Medicine Interventional Cardiology
DX: I25.10 Atherosclerotic heart disease of native coronary artery without angina pectoris (principal); I25.84 Coronary atherosclerosis due to calcified coronary lesion; I48.0 Paroxysmal atrial fibrillation; I48.92 Unspecified atrial flutter; F17.210 Nicotine dependence, cigarettes, uncomplicated; E11.9 Type 2 diabetes mellitus without complications; J44.9 Chronic obstructive pulmonary disease, unspecified; I10 Essential (primary) hypertension; E78.5 Hyperlipidemia, unspecified; E87.5 Hyperkalemia; E66.9 Obesity, unspecified; Z79.51 Long term (current) use of inhaled steroids; Z79.82 Long term (current) use of aspirin; Z79.899 Other long term (current) drug therapy; Z79.01 Long term (current) use of anticoagulants; Z20.822 Contact with and (suspected) exposure to COVID-19
CPT/HCPCS: 93571; 93458; 87635; C1769 ×3; C1887; C1894; J2250; J0360; J2001; J1644; J0153; Q9967

== ENCOUNTER 2022-02-02 09:33 | Inpatient (IN) | payer MEDICARE, OTHER ==
[2022-01-29 16:27] VITALS: BMI 30.7
[~2022-02-02 09:33] MED LIST changes: +ACETAMINOPHEN TAB 500 MG TAB PO PRN; -ALPRAZolam 0.25 MG TAB PO PRN; -ALPRAZolam 0.5 MG TAB PO PRN; -ASPIRIN 325 MG TAB PO STA; -ATORVASTATIN 80 MG TAB PO STA; +DEXAMETHASONE SOD PHOSPHATE 4 MG/ML 1 ML VIAL IV ONE; +GABAPENTIN 300 MG CAP PO PRN; +HYDROmorphone 0.5 MG/0.5 ML SYRINGE IVP PRN; +MELOXICAM 7.5 MG TAB PO PRN; +MIDAZOLAM 2 MG/2 ML VIAL IV PRN; -NITROGLYCERIN SL TABS 0.4 MG TAB SUBLINGUAL PRN; +ONDANSETRON 4 MG/2 ML VIAL IVP ONE; -SODIUM CHLORIDE 0.9% 1,000 ML in EMPTY BAG 1 BAG IV SCH; +TRANEXAMIC ACID IN NACL,ISO-OS 1,000 MG in SALINE 1 100ML.BAG IVPB PRN
[2022-02-02 10:36] LABS: Glucose,Whole Blood 158 mg/dL (70-110)
[2022-02-02] MEDS: LACTATED RINGERS 1,000 ML IV SCH (10:40)
[2022-02-02] MEDS ORDERED: NA PHOS,M-B/NA PHOS,DI-BA 133 ML ENEMA RECTAL PRN (11:02)
[2022-02-02] MEDS ORDERED: NALOXONE 0.4 MG/ML 1 ML VIAL IV PRN (11:02)
[2022-02-02] MEDS ORDERED: ONDANSETRON 4 MG/2 ML VIAL IVP PRN (11:02)
[2022-02-02] MEDS ORDERED: HYDROmorphone 0.5 MG/0.5 ML SYRINGE IVP PRN (11:02)
[2022-02-02] MEDS ORDERED: MAGNESIUM HYDROXIDE 2,400 MG/10 ML CUP PO PRN (11:02)
[2022-02-02] MEDS ORDERED: bisacodyL 10 MG SUPP RECTAL PRN (11:02)
[2022-02-02] MEDS ORDERED: HYDROcodone/APAP 7.5-325MG 1 EACH TAB PO PRN (11:05)
[2022-02-02] MEDS ORDERED: PROPOFOL 10 MG/ML 20 ML VIAL IV ONE (11:10)
[2022-02-02] MEDS ORDERED: SODIUM CHLORIDE 0.9% (PF) 10 ML VIAL ONE (11:10)
[2022-02-02] MEDS ORDERED: MIDAZOLAM 2 MG/2 ML VIAL ONE (11:10)
[2022-02-02] MEDS ORDERED: TRANEXAMIC ACID IN NACL,ISO-OS 1,000 MG/100 ML BAG ONE (11:10)
[2022-02-02] MEDS ORDERED: ROPIVACAINE 5 MG/ML 30 ML VIAL ONE (11:10)
[2022-02-02] MEDS ORDERED: ceFAZolin 1,000 MG in SODIUM CHLORIDE 0.9% 1,000 ML IRRIGATION ONE (11:12)
[2022-02-02] MEDS ORDERED: ROPIVACAINE 0.2%-NS ON-Q PUMP 1,090 MG, EMPTY PAIN BALL 1 EACH MISCELLANE PRN (11:27)
--- NOTE | 2022-02-02 11:27 | P.ANPRN ---
Procedure Note - Anesthesia - Nerve Block Performed Left Other (see comment) Infusion Time Out Performed: Yes (1045) Date of Procedure: 02/02/22 Procedure Start Time: 10:45 Procedure Stop Time: 10:52 Location of Patient: PreOp Indication: Acute Post-Operative Pain, Dx/Pain Location (Left Knee pain), Requested by Surgeon Specifically requested for management of pain by : Glenn Sue Sedation Type: Sedate with meaningful contact maintained Preparation: Sterile Prep, Sterile Dressing Position: Supine Catheter: None Needle Types: Pajunk Needle Gauge: 18 Ultrasound used to visualize needle placement: Yes Ultrasound used to observe medication spread: Yes Injectate: 0.5% Ropivacaine (see comment for volume) (15cc) Blood Aspirated: No Pain Paresthesia on Injection Noted: No Resistance on Injection: Normal Image Stored and Saved: Yes Events: Uneventful and Well Tolerated Left iPack Single Time Out Performed: Yes Date of Procedure: 02/02/22 Location of Patient: PreOp Indication: Acute Post-Operative Pain, Dx/Pain Location (Left knee) Specifically requested for management of pain by DrJorge: Glenn Sue Sedation Type: Sedate with meaningful contact maintained Preparation: Sterile Prep Position: Right Lateral Catheter: None Needle Types: Pajunk Needle Gauge: 21 Ultrasound used to visualize needle placement: Yes Ultrasound used to observe medication spread: Yes Injectate: 0.5% Ropivacaine (see comment for volume) (15 cc) Blood Aspirated: No Pain Paresthesia on Injection Noted: No Resistance on Injection: Normal Image Stored and Saved: Yes Events: Uneventful and Well Tolerated
--- NOTE | 2022-02-02 12:25 | P.OP ---
Date of Procedure: 02/02/22 Preoperative Diagnosis: Severe osteoarthritis left knee Postoperative Diagnosis: Severe osteoarthritis left knee Procedure(s) Performed: Left total knee arthroplasty Implants: [employer] Journey II CR Oxinium cruciate retaining femoral component size 7, left [employer] Journey nonporous tibial baseplate size 6, left [employer] Journey II, XLPE Deep Dished articular insert, size 13 mm, Size 5-6, left [employer] Journey Jordana II resurfacing patellar component, oval, 32 mm All components were cemented using Palacos R bone cement The articulation is Oxinium on polyethylene Anesthesia: spinal Surgeon: Glenn Sue Fisher Reef Net #1: Alisa Gil Estimated Blood Loss (ml): 25 Pathology: other (Bone and cartilage) Condition: stable Disposition: PACU Indications for Procedure: After failure of conservative treatment we discussed the surgical and nonsurgical treatment options at length. Patient wishes to proceed with a total knee arthroplasty. Complications specific to this procedure were discussed at length, including but not limited to infection, bleeding, stiffness, and nerve injury. Covid-19 was also discussed at length with the patient, and they are aware of the current policies and procedures. The patient was given the option of delaying surgery, but they elect to proceed knowing these risks. Patient is aware of all these complications and informed consent was obtained Operative Findings: The operative findings are consistent with severe osteoarthritis of the left knee Description of Procedure: Patient was seen in the preoperative area and the consent was reviewed and the operative site was marked with a skin marker. The patient verified the procedure and the operative site. An adductor canal pain catheter and an iPACK block was placed by anesthesia in the preoperative area. The patient was then brought to the operating room and given preoperative antibiotics intravenously. A gram of transexamic acid was given intravenously. A spinal anesthetic was administered by the anesthesia department. A tourniquet was placed on the upper thigh and the lower extremity was prepped with chlorhexidine and draped in usual sterile fashion. A universal timeout was then performed which confirmed the patient's name, surgical site, ALLERGIES, and consent. The lower extremity was then exsanguinated and tourniquet was inflated to 250 mmHg. A standard anterior midline approach to the knee was performed. The skin and subcutaneous tissue were sharply dissected down to the patellar tendon. A medial parapatellar arthrotomy was then performed. The knee was then extended, the patellar was everted, and the knee was again flexed. The infra-patellar fat pad was removed in order to enhance exposure. The anterior horns of both menisci were excised, and a release was performed to the posterior medial aspect of the knee. On gross visual inspection, there was complete loss of articular cartilage in the medial and patellofemoral joint spaces. There was also significant cartilage damage in the lateral compartment. There were multiple periarticular osteophytes globally about the knee which were then removed with a Ronguer. The femoral canal was then opened with the 9.5 mm intramedullary drill. The 8 mm intramedullary sami was then inserted into the femoral canal with the distal femoral cutting guide set for 5 of valgus. The distal femoral cutting block was then pinned in place. The intramedullary sami was then removed, and the distal femur was then cut. The cutting block was then removed and the cut was checked for symmetry. The resected bone was then measured to confirm the appropriate distal femoral resection. Next, the sizing guide was then placed and set for 3 external rotation based off of the epicondylar axis and Whitesides line. Pins were then placed and the drill holes, and the femur was sized with the sizing stylus. The pins were then removed, and the sizing guide was then removed. The spikes of the femoral block was then placed into the predrilled holes, and malleted into place. Two 45 mm pins were then placed into the fixation holes on the cutting block. An francisca wing was then used to ensure there would be no notching with the anterior cut. The anterior condyles were cut without notching. The anterior chord cut was then performed, followed by the posterior cut, posterior chamfer cut, and the anterior chamfer cut. The collateral ligaments were protected during the entire process. The cutting block was then removed. Any remaining bone and osteophytes were removed from the femur with a Ronguer. The femoral canal was plugged with autologous bone. Attention was then directed to the tibia. The remaining ACL was removed with a Ronguer, and the tibia was then gently subluxed forward with a large bent knee retractor. Any remaining menisci were excised. The posterior lateral corner was cauterized in order to coagulate the lateral geniculate artery. The extra medullary tibial cutting guide was then placed, set for the appropriate rotation, slope, and depth of resection. The proximal tibia cutting guide was then pinned in place. Proximal tibia was then cut and sized. The femoral trial was placed. A narrow saw blade was then used to remove the anterior intracondylar femoral bone. The CR notch trial was then placed. The tibial trial was placed with the appropriate-sized insert. The knee was able to fully extend and flex to 130 and was stable throughout all range of motion. The knee was then extended and the patella was everted. Patella was then measured, and then using an osteotomy guide, the patella was cut at the appropriate level. The patella was then measured and drilled and the patella trial was then placed. The knee was then taken through range of motion with the patella trial and the patella tracked normally using the no thumbs technique. The knee was then extended patella trial was then removed and the patella was everted. Knee was then flexed and lug holes were drilled through the femoral trial and the femoral trial was then removed. The tibial was then re-exposed, and the tibial broach guide was then pinned in place after it was set for the appropriate rotation to allow for the most coverage without overhang. The tibia was then reamed and broached. The cut surfaces of bone were then irrigated with pulsatile lavage. The knee was also irrigated with Irrisept solution. The components were then opened, the cement was mixed, and the components were then cemented in place. The cement was allowed to harden with the knee in full extension. After the cemented hardened, the tourniquet was released and hemostasis was obtained. A second gram of transexamic acid was given intravenously. The knee was again irrigated. The knee was again taken through range of motion and found to be stable throughout all range of motion of 0-130, and the patella tracked normally. The fascia was then closed with 0 Vicryl followed by #2 strata fix suture. The subcutaneous tissue was closed with 3-0 Vicryl and 3-0 strata fix. Exofin glue was used for the skin and placed with the knee in flexion. After the glue had dried, and Optafoam silver impregnated dressing was applied. The patient was then transferred to recovery room in stable condition. The geological survey field assistant JOSE Wright was required due the complexity surgery and the need for a skilled neurosurgical nurse practitioner. She assisted in positioning, draping, retraction, and closure of the wound.
[2022-02-02 13:32] LABS: Glucose,Whole Blood 159 mg/dL (70-110)
[2022-02-02] MEDS: SODIUM CHLORIDE 0.9% 1,000 ML IV SCH (15:40)
[2022-02-02] MEDS: HYDROmorphone 1 MG/ML 1 ML SYRINGE IVP PRN ×2 (17:05→20:22)
[2022-02-02] MEDS: HYDROcodone/APAP 7.5-325MG 1 EACH TAB PO PRN ×2 (18:22→23:15)
--- NOTE | 2022-02-02 19:00 | XR ---
EXAMINATION TYPE: XR knee limited LT DATE OF EXAM: 02/02/2022 COMPARISON: NONE HISTORY: Postop knee surgery TECHNIQUE: 2 view FINDINGS: There is left knee prosthesis. Components appear in anatomic position. There is mild knee j oint effusion. There is vascular calcification. IMPRESSION: Knee prosthesis. Components appear in good position.
[2022-02-02] MEDS: SENNOSIDES-DOCUSATE SODIUM 1 EACH TAB PO SCH (20:22)
[2022-02-02 20:34] LABS: Glucose,Whole Blood 260 mg/dL (70-110)
[2022-02-03] MEDS: HYDROmorphone 0.5 MG/0.5 ML SYRINGE IVP PRN (01:38)
[2022-02-03] MEDS: SODIUM CHLORIDE 0.9% 1,000 ML IV SCH ×2 (04:37→18:28)
[2022-02-03] MEDS: HYDROmorphone 1 MG/ML 1 ML SYRINGE IVP PRN ×5 (04:38→23:50)
[2022-02-03] MEDS: HYDROcodone/APAP 7.5-325MG 1 EACH TAB PO PRN (05:31)
[2022-02-03] MEDS: LACTATED RINGERS 1,000 ML IV SCH (06:49)
[2022-02-03 06:59] LABS: Glucose,Whole Blood 166 mg/dL (70-110)
[2022-02-03] MEDS ORDERED: KETOROLAC 15 MG/ML 1 ML VIAL IVP STA ×2 (07:27→14:01)
--- NOTE | 2022-02-03 07:46 | P.DS ---
Providers Expected date of discharge: 02/03/22 Attending physician: Glenn Sue Consults: 02/02/22 11:02 Consult Physician Routine Consulting Provider: Carmelo Duckworth Consult Reason/Comments: medical management and anticoagulation Do you want consulting provider notified?: Yes Primary care physician: Brittany Osorio, NPC - Discharge Diagnosis(es) (1) Primary osteoarthritis of left knee Current Visit: Yes Status: Acute (2) Status post total left knee replacement Current Visit: Yes Status: Acute Hospital Course: This is a 66-year-old male who was last seen with complaint of continued left knee pain. The patient has a known history of degenerative arthritis of the left knee and presents to discuss surgical options. After discussion and consideration the patient elects to proceed with total left knee arthroplasty. The patient is seen preoperatively by his primary care physician and cleared for surgery. The patient is admitted to [facility] for total left knee arthroplasty. The procedures performed without complication or sequelae. He is doing well postoperatively. Vital signs are stable at discharge. Labs are stable at discharge. the patient is ambulating well with walker with minimal assistance. The patient is discharged to home on postop day #1 pending medical clearance. Please see orders and refer to the med rec for accurate list of medications. Patient Condition at Discharge: Good Plan - Discharge Summary Discharge Rx Participant: Yes New Discharge Prescriptions: New Ketorolac [Toradol] 10 mg PO Q6HR PRN #20 tab PRN Reason: Pain Sennosides [Senokot] 2 tab PO DAILY PRN #60 tablet PRN Reason: Constipation No Action Aspirin [Adult Low Dose Aspirin EC] 81 mg PO DAILY Omeprazole [PriLOSEC] 20 mg PO QAM Hydrocodone/Acetaminophen [[place] 10-325] 1 tab PO TID Semaglutide [Ozempic] 1 mg SQ MO Insulin Glargine,Hum.rec.anlog [Basaglar Kwikpen U-100] 35 unit SQ HS Cholecalciferol [Vitamin D3 (25 Mcg = 1000 Iu)] 50 mcg PO DAILY Albuterol Inhaler [Ventolin Hfa Inhaler] 2 puff INHALATION QID Insulin Aspart [NovoLOG] See Protocol SQ AC-TID Sodium Bicarbonate Tab 1,300 mg PO BID Fluticasone Propionate 110 Mcg [Flovent 110 Mcg Inhaler] 2 puff INHALATION BID carvediloL [Coreg*] 12.5 mg PO BID Atorvastatin [Lipitor] 40 mg PO HS Valsartan 320 mg PO HS Multivit-Min/Folic/Vit K/Lycop [Men's Multivitamin Tablet] 1 each PO DAILY Flecainide [Tambocor] 50 mg PO Q12HR #180 tablet hydroCHLOROthiazide [Hydrodiuril] 25 mg PO DAILY Gabapentin 300 mg PO HS amLODIPine [Norvasc] 10 mg PO QAM Rivaroxaban [Xarelto] 20 mg PO HS metFORMIN HCL 1,000 mg PO BID Discharge Medication List Aspirin [Adult Low Dose Aspirin EC] 81 mg PO DAILY 08/12/17 [History] Hydrocodone/Acetaminophen [[place] 10-325] 1 tab PO TID 12/08/17 [History] Omeprazole [PriLOSEC] 20 mg PO QAM 12/08/17 [History] Albuterol Inhaler [Ventolin Hfa Inhaler] 2 puff INHALATION QID 08/21/20 [History] Cholecalciferol [Vitamin D3 (25 Mcg = 1000 Iu)] 50 mcg PO DAILY 08/21/20 [History] Insulin Glargine,Hum.rec.anlog [Basaglar Kwikpen U-100] 35 unit SQ HS 08/21/20 [History] Semaglutide [Ozempic] 1 mg SQ MO 08/21/20 [History] Insulin Aspart [NovoLOG] See Protocol SQ AC-TID 09/18/20 [History] Flecainide [Tambocor] 50 mg PO Q12HR #180 tablet 10/07/20 [Rx] Atorvastatin [Lipitor] 40 mg PO HS 01/14/22 [History] Fluticasone Propionate 110 Mcg [Flovent 110 Mcg Inhaler] 2 puff INHALATION BID 01/14/22 [History] Gabapentin 300 mg PO HS 01/14/22 [History] Multivit-Min/Folic/Vit K/Lycop [Men's Multivitamin Tablet] 1 each PO DAILY 01/14/22 [History] Sodium Bicarbonate Tab 1,300 mg PO BID 01/14/22 [History] Valsartan 320 mg PO HS 01/14/22 [History] carvediloL [Coreg*] 12.5 mg PO BID 01/14/22 [History] hydroCHLOROthiazide [Hydrodiuril] 25 mg PO DAILY 01/14/22 [History] Rivaroxaban [Xarelto] 20 mg PO HS 01/29/22 [History] amLODIPine [Norvasc] 10 mg PO QAM 01/29/22 [History] metFORMIN HCL 1,000 mg PO BID 01/29/22 [History] Sennosides [Senokot] 2 tab PO DAILY PRN #60 tablet 02/01/22 [Rx] Ketorolac [Toradol] 10 mg PO Q6HR PRN #20 tab 02/03/22 [Rx] Follow up Appointment(s)/Referral(s): Glenn Sue DO [Doctor of Osteopathic Medicine] - 2 Weeks Activity/Diet/Wound Care/Special Instructions: Weightbearing as tolerated with walker. Leave dressing intact. Dressing may be removed by home care nurse or by patient 7 days postoperatively. CPM 5-6 hours daily as tolerated. May shower with dressing on. Please resume Xarelto. Pain management per Dr Garcia. Please wear compression stockings during the day until follow-up appointment to help prevent blood clots. May remove at night. Follow-up with [facility] in 2 weeks, please call with any questions or concerns [phone] Discharge Disposition: HOME WITH HOME HEALTH SERVICES
[2022-02-03] MEDS ORDERED: HYDROcodone/APAP 10-325MG 1 EACH TAB PO SCH (09:00)
[2022-02-03 11:09] LABS: Basophils # (A) 0.08 X 10*3/uL (0.00-0.10); Basophils % (A) 0.7 %; Eosinophils # (A) 0.04 X 10*3/uL (0.04-0.35); Eosinophils % (A) 0.3 %; HCT 35.5 % (39.6-50.0); HGB 11.6 g/dL (13.0-17.0); Immature Grans, Automated 0.4 %; Lymphocytes # (A) 2.78 X 10*3/uL (0.90-5.00); Lymphocytes % (A) 22.7 %; MCH 29.4 pg (27.0-32.0); MCHC 32.7 g/dL (32.0-37.0); MCV 90.1 fL (80.0-97.0); Mean Platelet Volume 10.6 fL (9.5-12.2); Monocytes # (A) 1.36 X 10*3/uL (0.20-1.00); Monocytes % (A) 11.1 %; NRBC Per 100 WBC 0 /100 WBCS (0.0-0.0); Neutrophils # (A) 7.94 X 10*3/uL (1.80-7.70); Neutrophils % (A) 64.8 %; Platelet Count 273 X 10*3/uL (140-440); RBC 3.94 X 10*6/uL (4.40-5.60); RDW 13.2 % (11.5-14.5); WBC 12.25 X 10*3/uL (4.50-10.00)
[2022-02-03 11:24] LABS: Glucose,Whole Blood 279 mg/dL (70-110)
--- NOTE | 2022-02-03 12:28 | P.CONS ---
History of Present Illness - History of Present Illness This is a pleasant 66 years old male with past medical history of diabetes me llitus, hypertension, hyperlipidemia, cigarette smoker, atrial fibrillation on anticoagulation as an outpatient. Was admitted to the surgical unit for left knee arthroplasty given his severe degenerative disease. He is status post left total knee arthroplasty. Today is postoperative day #1. Patient was sitting in chair looks comfortable. He denies chest pain or dyspnea. No abdominal pain, no vomiting. He tolerated diet well. Patient told me he is walking in the room. Blood pressure is elevated this morning 194/81. Patient blood pressure medication was held due to surgery. We are going to resume his flecainide, Coreg, hydrochlorothiazide and Norvasc. Also patient can resume his valsartn Patient also already started on his home dose of xeralto and he looks tolerating that well. Rest of his vitals are stable and patient is afebrile. Labs reviewed showing mild leukocytosis 12.5 hemoglobin 11.6. Glucose controlled potassium 4.9. Review of Systems Review of systems CONSTITUTIONAL: No fever, no malaise, no fatigue. HEENT: No recent visual problems or hearing problems. Denied any sore throat. CARDIOVASCULAR: No orthopnea, PND, no palpitations, no syncope. PULMONARY: No shortness of breath, no cough, no hemoptysis. GASTROINTESTINAL: No diarrhea, no nausea, no vomiting, no abdominal pain. Normoactive bowel sounds. NEUROLOGICAL: No headaches, no weakness, no numbness. HEMATOLOGICAL: Denies any bleeding or petechiae. GENITOURINARY: Denies any burning micturition, frequency, or urgency. MUSCULOSKELETAL/RHEUMATOLOGICAL: Denies any joint pain, swelling, or any muscle pain. ENDOCRINE: Denies any polyuria or polydipsia. Past Medical History Past Medical History: Atrial Fibrillation, Chest Pain / Angina, Hyperlipidemia, Hypertension History of Any Multi-Drug Resistant Organisms: None Reported Past Surgical History: Appendectomy, Cardiac Ablation, Ear Surgery, Heart Catheterization, Orthopedic Surgery Additional Past Surgical History / Comment(s): Ear surgery Past Anesthesia/Blood Transfusion Reactions: Previous Problems w/ Anesthesia Additional Past Anesthesia/Blood Transfusion Reaction / Comm: "Woke up fighting X1". Past Psychological History: No Psychological Hx Reported Smoking Status: Current every day smoker Past Alcohol Use History: None Reported Additional Past Alcohol Use History / Comment(s): Has been smoking since 14 yrs of age, down to 1/2 ppd. Past Drug Use History: Marijuana Additional Drug Use History / Comment(s): CBD oil PRN pain. Aware no use 24 hrs prior to procedure. - Past Family History Mother Family Medical History: No Reported History Medications and Allergies Home Medications Medication Instructions Recorded Confirmed Type Aspirin [Adult Low Dose Aspirin EC] 81 mg PO DAILY 08/12/17 02/02/22 History Hydrocodone/Acetaminophen [[place] 1 tab PO TID 12/08/17 02/02/22 History 10-325] Omeprazole [PriLOSEC] 20 mg PO QAM 12/08/17 02/02/22 History Albuterol Inhaler [Ventolin Hfa 2 puff INHALATION QID 08/21/20 02/02/22 History Inhaler] Cholecalciferol [Vitamin D3 (25 50 mcg PO DAILY 08/21/20 02/02/22 History Mcg = 1000 Iu)] Insulin Glargine,Hum.rec.anlog 35 unit SQ HS 08/21/20 02/02/22 History [Basaglar Kwikpen U-100] Semaglutide [Ozempic] 1 mg SQ MO 08/21/20 02/02/22 History Insulin Aspart [NovoLOG] See Protocol SQ AC-TID 09/18/20 02/02/22 History Flecainide [Tambocor] 50 mg PO Q12HR #180 tablet 10/07/20 02/02/22 Rx Atorvastatin [Lipitor] 40 mg PO HS 01/14/22 02/02/22 History Fluticasone Propionate 110 Mcg 2 puff INHALATION BID 01/14/22 02/02/22 History [Flovent 110 Mcg Inhaler] Gabapentin 300 mg PO HS 01/14/22 02/02/22 History Multivit-Min/Folic/Vit K/Lycop 1 each PO DAILY 01/14/22 02/02/22 History [Men's Multivitamin Tablet] Sodium Bicarbonate Tab 1,300 mg PO BID 01/14/22 02/02/22 History Valsartan 320 mg PO HS 01/14/22 02/02/22 History carvediloL [Coreg*] 12.5 mg PO BID 01/14/22 02/02/22 History hydroCHLOROthiazide [Hydrodiuril] 25 mg PO DAILY 01/14/22 02/02/22 History Rivaroxaban [Xarelto] 20 mg PO HS 01/29/22 02/02/22 History amLODIPine [Norvasc] 10 mg PO QAM 01/29/22 02/02/22 History metFORMIN HCL 1,000 mg PO BID 01/29/22 02/02/22 History Sennosides [Senokot] 2 tab PO DAILY PRN #60 tablet 02/01/22 Rx Ketorolac [Toradol] 10 mg PO Q6HR PRN #20 tab 02/03/22 Rx Allergies Allergy/AdvReac Type Severity Reaction Status Date / Time No Known Allergies Allergy Verified 02/02/22 10:01 Physical Exam Vitals: Vital Signs Temp Pulse Pulse Resp BP Pulse Ox 02/03/22 08:00 98.3 F 69 16 194/81 95 02/03/22 07:23 16 02/03/22 02:00 98.3 F 80 16 154/68 92 L 02/02/22 20:00 75 16 02/02/22 19:36 98.2 F 78 16 185/73 93 L 02/02/22 17:13 176/95 02/02/22 17:03 98.0 F 75 18 195/90 94 L 02/02/22 16:15 67 16 154/70 97 02/02/22 15:45 65 16 159/72 96 02/02/22 14:30 70 16 161/68 99 02/02/22 14:17 60 16 129/66 94 L 02/02/22 14:03 60 16 131/67 95 02/02/22 13:46 61 16 144/79 100 02/02/22 13:32 60 18 136/67 97 02/02/22 13:18 60 16 134/69 93 L 02/02/22 13:03 61 16 136/68 94 L 02/02/22 12:48 96.4 F L 58 L 16 125/71 100 02/02/22 11:10 210/92 Intake and Output 02/02/22 02/03/22 02/03/22 22:59 06:59 14:59 Intake Total 870 840 Output Total 400 Balance 470 840 Intake: IV 450 Intake, IV Titration 840 Amount Sodium Chloride 0.9% 1, 840 000 ml @ 70 mls/hr IV . [id number] [facility] Rx#:[id number] Oral 420 Output: Urine 400 Other: Voiding Method Toilet Toilet Urinal Urinal # Voids 1 1 Weight 102.965 kg GENERAL: The patient is alert and oriented x3, not in any acute distress. Well developed, well nourished. HEENT: Pupils are round and equally reacting to light. EOMI. No scleral icterus. No conjunctival pallor. Normocephalic, atraumatic. No pharyngeal erythema. No thyromegaly. CARDIOVASCULAR: S1 and S2 present. No murmurs, rubs, or gallops. PULMONARY: Chest is clear to auscultation, no wheezing or crackles. ABDOMEN: Soft, nontender, nondistended, normoactive bowel sounds. No palpable organomegaly. MUSCULOSKELETAL: No joint swelling or deformity. -EXTREMITIES: No cyanosis, clubbing, or pedal edema. Left knee wound with a dressing is in place NEUROLOGICAL: Gross neurological examination did not reveal any focal deficits. SKIN: No rashes. no petechiae. Results CBC & Chem 7: 02/03/22 06:40 02/02/22 10:30 Labs: Abnormal Lab Results - Last 24 Hours (Table) 02/02/22 02/02/22 02/03/22 Range/Units 13:29 20:22 06:58 POC Glucose (mg/dL) 159 H 260 H 166 H (70-110) mg/dL Assessment and Plan Assessment: Severe left knee osteoarthritis, status post left total knee arthroplasty. Today is postoperative day #1 Hypertension, controlled because of holding medication. Resume his home medication and monitor blood pressure Diabetes mellitus, type II mild leukocytosis, most likely reactive. No signs of infection. No need for antibiotic Hyperlipidemia Nicotine dependence Obesity with BMI of 30.8 Plan: This is a pleasant 66 years old male who presents with left knee arthroplasty. Patient looks generally doing well. His pain looks controlled His blood pressure is still elevated therefore resumed his home blood pressure medication including Norvasc and Coreg.also flecainide. Also denied dose of valsartan. keep monitor blood pressure. Patient is clinically stable.As long as his blood pressure is controlled resume aspirin and has had multiple on discharge if there is no surgical contraindication Continue with DVT and GI prophylaxis, currently on Protonix PT/OT Keep monitoring white blood cell Thank you for consulting us
[2022-02-03] MEDS: carvediloL 12.5 MG TAB PO SCH ×2 (13:01→18:20)
[2022-02-03] MEDS: hydroCHLOROthiazide 25 MG TAB PO SCH (13:01)
[2022-02-03] MEDS: amLODIPine 10 MG TAB PO SCH (13:01)
[2022-02-03] MEDS: FLECAINIDE 50 MG TAB PO SCH ×2 (13:31→21:03)
[2022-02-03] MEDS ORDERED: DEXTROSE 50% SYRINGE 50 ML IVP PRN ×2 (14:38)
[2022-02-03] MEDS: ALBUTEROL NEBULIZED 2.5 MG/3 ML INHALATION SCH ×2 (16:09→21:31)
[2022-02-03 16:25] LABS: Glucose,Whole Blood 146 mg/dL (70-110)
[2022-02-03] MEDS: INSULIN ASPART (NovoLOG) 100 UNIT/ML VIAL SQ SCH (16:35)
[2022-02-03] MEDS: HYDROcodone/APAP 10-325MG 1 EACH TAB PO PRN ×2 (16:39→22:55)
[2022-02-03] MEDS: RIVAROXABAN 20 MG TAB PO SCH (16:39)
[2022-02-03] MEDS ORDERED: metFORMIN 500 MG TAB PO SCH (17:30)
--- NOTE | 2022-02-03 17:50 | P.PN ---
Progress Note - Text I have been made aware of consult for pain management. I have allowed increase [place] to qid. Apparently I am treating patient for chronic pain and have Opiate Agreement. There are many surgical procedures offered locally that I am not up to date on including possible pain responses or appropriate management. Thus, I have a Roseanne-operative loophole in my agreement. That is my pain management is defered for roseanne-operative pain period and my management will be resumed upon completion of roseanne-operative management.This includes dental procedures and ER visits. It is possible that my management already exceeds that which may be considered for that procedure/intervention and so roseanne-operative management may not be helpful for patient. Loophole is there for benefit of patient and surgeon and to allow appropriate management for unforeseen circumstances. I will see patient tomorrow but anticipate defering roseanne-operative pain management to the surgeon.
[2022-02-03] MEDS: hydrALAZINE HCL 25 MG TAB PO PRN (19:42)
[2022-02-03 20:53] LABS: Glucose,Whole Blood 197 mg/dL (70-110)
[2022-02-03] MEDS ORDERED: VALSARTAN 160 MG TAB PO SCH (21:00)
[2022-02-03] MEDS ORDERED: GABAPENTIN 300 MG CAP PO SCH (21:00)
[2022-02-03] MEDS: SENNOSIDES-DOCUSATE SODIUM 1 EACH TAB PO SCH (21:03)
[2022-02-03] MEDS: ATORVASTATIN 40 MG TAB PO SCH (21:03)
[2022-02-03] MEDS: INSULIN DETEMIR (LEVEMIR) 100 UNIT/ML SYR SQ SCH (21:03)
[2022-02-03] MEDS ORDERED: hydrALAZINE HCL 25 MG TAB PO STA (23:13)
[2022-02-04] MEDS: HYDROmorphone 1 MG/ML 1 ML SYRINGE IVP PRN ×6 (03:19→23:59)
[2022-02-04] MEDS: HYDROcodone/APAP 10-325MG 1 EACH TAB PO PRN ×3 (05:27→19:06)
[2022-02-04] MEDS: hydrALAZINE HCL 25 MG TAB PO PRN ×2 (05:32→20:47)
[2022-02-04] MEDS: LACTATED RINGERS 1,000 ML IV SCH (06:22)
[2022-02-04] MEDS: ALBUTEROL NEBULIZED 2.5 MG/3 ML INHALATION SCH ×4 (06:56→20:47)
[2022-02-04 06:59] LABS: Glucose,Whole Blood 143 mg/dL (70-110)
[2022-02-04] MEDS: INSULIN ASPART (NovoLOG) 100 UNIT/ML VIAL SQ SCH ×3 (07:36→17:10)
[2022-02-04] MEDS ORDERED: hydrOXYzine pamoate 25 MG CAP PO PRN (08:39)
--- NOTE | 2022-02-04 08:56 | P.PN ---
Subjective Progress Note Date: 02/04/22 Principal diagnosis: Postop total left knee arthroplasty. Hypertension. This is a 66-year-old male who is postoperative day #2 status post total left knee arthroplasty. He is having some pain control issues and hypertension. He states his pain is out of control. However, he has seems fairly comfortable in the chair. Vital signs are stable other than elevated blood pressure. Objective - Vital Signs Vital signs: Vital Signs Temp 97.5 F L 02/04/22 02:00 Pulse 72 02/04/22 07:04 Resp 17 02/04/22 02:00 BP 197/92 02/04/22 05:31 Pulse Ox 97 02/04/22 02:00 FiO2 Intake & Output 02/03/22 02/04/22 02/04/22 18:59 06:59 18:59 Other: Voiding Method Toilet Urinal # Voids 2 - Exam This is a pleasant 58-year-old male in no acute distress. He is alert and oriented 3. Exam of the left lower extremity reveals swelling to the knee and lower leg. Dressing is clean, dry and intact. There is no erythema. He has full foot and ankle motion without difficulty or pain. Neurovascular status to the lower extremity is intact. - Labs CBC & Chem 7: 02/03/22 06:40 02/02/22 10:30 Labs: Abnormal Lab Results - Last 24 Hours (Table) 02/03/22 02/03/22 02/03/22 Range/Units 06:40 11:23 16:23 WBC 12.25 H (4.50-10.00) X 10*3/uL RBC 3.94 L (4.40-5.60) X 10*6/uL Hgb 11.6 L (13.0-17.0) g/dL Hct 35.5 L (39.6-50.0) % Immature Gran # 0.05 H (0.00-0.04) X 10*3/uL Neutrophils # 7.94 H (1.80-7.70) X 10*3/uL Monocytes # 1.36 H (0.20-1.00) X 10*3/uL POC Glucose (mg/dL) 279 H 146 H (70-110) mg/dL 02/03/22 02/04/22 Range/Units 20:52 06:57 WBC (4.50-10.00) X 10*3/uL RBC (4.40-5.60) X 10*6/uL Hgb (13.0-17.0) g/dL Hct (39.6-50.0) % Immature Gran # (0.00-0.04) X 10*3/uL Neutrophils # (1.80-7.70) X 10*3/uL Monocytes # (0.20-1.00) X 10*3/uL POC Glucose (mg/dL) 197 H 143 H (70-110) mg/dL Assessment and Plan (1) Primary osteoarthritis of left knee Current Visit: Yes Status: Acute Code(s): M17.12 - UNILATERAL PRIMARY OSTEOARTHRITIS, LEFT KNEE SNOMED Code(s): 893466476451557 (2) Status post total left knee replacement Current Visit: Yes Status: Acute Code(s): Z96.652 - PRESENCE OF LEFT ARTIFICIAL KNEE JOINT SNOMED Code(s): 7214597257033 Plan: The clinical findings are discussed the patient. He does wish to go home today. We discussed his elevated blood pressure and the importance of having that evaluated today internal medicine to decide if he is able to go home. There is a note from Dr. Garcia regarding pain medication. He would not like to order any further pain medication at this time. He continues on his [place] 10/325 4 times daily. I have added baclofen today.
[2022-02-04] MEDS: hydroCHLOROthiazide 25 MG TAB PO SCH (09:07)
[2022-02-04] MEDS: GABAPENTIN 300 MG CAP PO SCH ×3 (09:07→20:47)
[2022-02-04] MEDS: carvediloL 12.5 MG TAB PO SCH ×2 (09:07→17:16)
[2022-02-04] MEDS: ASPIRIN 81 MG PO SCH (09:07)
[2022-02-04] MEDS: CHOLECALCIFEROL 25 MCG (1000 IU) TABLET PO SCH (09:07)
[2022-02-04] MEDS: amLODIPine 10 MG TAB PO SCH (09:08)
[2022-02-04] MEDS: FLECAINIDE 50 MG TAB PO SCH ×2 (09:08→20:48)
--- NOTE | 2022-02-04 10:51 | P.CONS ---
History of Present Illness - Chief Complaint Walking difficulty, right TKA, chronic pain - History of Present Illness I had the opportunity to see patient for inpatient rehab consultation with regard to chronic pain. Patient admitted to [facility] February 02, Dr.'s Sue, for elective left TKA which was performed. Patient complains of much low back/left leg/left knee pain. Currently on [place] 10 4 times a day which is mildly outpatient program. Knee x-ray done and demonstrates postoperative change. Seen medically by Dr. Bowser. PT reports modified independent bed mobility and supervision for transfer and gait 50 feet with roller walker. Review of Systems Review of systems: ENT: Denies sneezes or discharge. Eyes: Denies discharge or photophobia. Cardiac: Denies chest pain or palpitation. Pulmonary: Denies cough or shortness of breath. Gastrointestinal: Denies nausea, emesis, constipation, diarrhea. Genitourinary: Denies discharge or frequency. Musculoskeletal: Chronic low back and left leg pain. Acute left knee pain. Neurologic: Denies motor or sensory change. Endocrine: Denies shakes or sweats. Oncology: Denies cancers. Dermatologic: Denies rash, itching, pruritus. ALLERGY/immunology: Denies sneezes, rashes. Past Medical History Past Medical History: Atrial Fibrillation, Chest Pain / Angina, Hyperlipidemia, Hypertension History of Any Multi-Drug Resistant Organisms: None Reported Past Surgical History: Appendectomy, Cardiac Ablation, Ear Surgery, Heart Cathet erization, Orthopedic Surgery Additional Past Surgical History / Comment(s): Ear surgery Past Anesthesia/Blood Transfusion Reactions: Previous Problems w/ Anesthesia Additional Past Anesthesia/Blood Transfusion Reaction / Comm: "Woke up fighting X1". Past Psychological History: No Psychological Hx Reported Smoking Status: Current every day smoker Past Alcohol Use History: None Reported Additional Past Alcohol Use History / Comment(s): Has been smoking since 14 yrs of age, down to 1/2 ppd. Past Drug Use History: Marijuana Additional Drug Use History / Comment(s): CBD oil PRN pain. Aware no use 24 hrs prior to procedure. - Past Family History Mother Family Medical History: No Reported History Medications and Allergies Home Medications Medication Instructions Recorded Confirmed Type Aspirin [Adult Low Dose Aspirin EC] 81 mg PO DAILY 08/12/17 02/02/22 History Hydrocodone/Acetaminophen [[place] 1 tab PO TID 12/08/17 02/02/22 History 10-325] Omeprazole [PriLOSEC] 20 mg PO QAM 12/08/17 02/02/22 History Albuterol Inhaler [Ventolin Hfa 2 puff INHALATION QID 08/21/20 02/02/22 History Inhaler] Cholecalciferol [Vitamin D3 (25 50 mcg PO DAILY 08/21/20 02/02/22 History Mcg = 1000 Iu)] Insulin Glargine,Hum.rec.anlog 35 unit SQ HS 08/21/20 02/02/22 History [Basaglar Kwikpen U-100] Semaglutide [Ozempic] 1 mg SQ MO 08/21/20 02/02/22 History Insulin Aspart [NovoLOG] See Protocol SQ AC-TID 09/18/20 02/02/22 History Flecainide [Tambocor] 50 mg PO Q12HR #180 tablet 10/07/20 02/02/22 Rx Atorvastatin [Lipitor] 40 mg PO HS 01/14/22 02/02/22 History Fluticasone Propionate 110 Mcg 2 puff INHALATION BID 01/14/22 02/02/22 History [Flovent 110 Mcg Inhaler] Gabapentin 300 mg PO HS 01/14/22 02/02/22 History Multivit-Min/Folic/Vit K/Lycop 1 each PO DAILY 01/14/22 02/02/22 History [Men's Multivitamin Tablet] Sodium Bicarbonate Tab 1,300 mg PO BID 01/14/22 02/02/22 History Valsartan 320 mg PO HS 01/14/22 02/02/22 History carvediloL [Coreg*] 12.5 mg PO BID 01/14/22 02/02/22 History hydroCHLOROthiazide [Hydrodiuril] 25 mg PO DAILY 01/14/22 02/02/22 History Rivaroxaban [Xarelto] 20 mg PO HS 01/29/22 02/02/22 History amLODIPine [Norvasc] 10 mg PO QAM 01/29/22 02/02/22 History metFORMIN HCL 1,000 mg PO BID 01/29/22 02/02/22 History Sennosides [Senokot] 2 tab PO DAILY PRN #60 tablet 02/01/22 Rx Ketorolac [Toradol] 10 mg PO Q6HR PRN #20 tab 02/03/22 Rx Baclofen 10 mg PO TID PRN #30 tab 02/04/22 Rx Allergies Allergy/AdvReac Type Severity Reaction Status Date / Time No Known Allergies Allergy Verified 02/02/22 10:01 Physical Exam Vitals: Vital Signs Temp Pulse Pulse Pulse Resp BP BP 02/04/22 10:34 83 177/73 02/04/22 07:04 72 02/04/22 06:58 76 02/04/22 05:31 79 197/92 02/04/22 02:00 97.5 F L 71 17 168/85 02/03/22 23:47 200/67 02/03/22 22:56 191/77 02/03/22 21:40 70 02/03/22 21:32 72 02/03/22 20:36 196/92 02/03/22 18:53 97.3 F L 70 17 211/81 02/03/22 18:15 192/86 02/03/22 16:19 69 18 02/03/22 16:09 65 18 02/03/22 14:02 65 194/83 02/03/22 12:58 98.3 F 70 18 199/99 Pulse Ox 02/04/22 10:34 02/04/22 07:04 02/04/22 06:58 02/04/22 05:31 02/04/22 02:00 97 02/03/22 23:47 02/03/22 22:56 02/03/22 21:40 02/03/22 21:32 02/03/22 20:36 02/03/22 18:53 97 02/03/22 18:15 02/03/22 16:19 02/03/22 16:09 02/03/22 14:02 02/03/22 12:58 97 Intake and Output 02/03/22 02/04/22 02/04/22 22:59 06:59 14:59 Other: # Voids 2 Skin: Good color, texture, turgor. General: Medium build and uncomfortable appearance. Head: Normocephalic, atraumatic. Eyes: Symmetric. Pupils equal round. Ears: Symmetric. Hearing within normal limits. Mouth: Clear. Neck: Supple. Carotid without bruit. Cardiac: Regular rate and rhythm. Lungs: Clear anteriorly and posteriorly. Abdomen: Soft active nontender. Extremities: Normal tone. Left knee bandaged anteriorly, clean and dressed. Neurological: Mental status: Alert, cooperative, pleasant. Cranial nerves: Symmetric facial tone and trapezius. Motor: Normal strength and isolation both arms. Right leg at least antigravity and left leg poor secondary to pain and left knee. Poor movement left ankle due to left knee pain. Sensation: Intact throughout. DTRs: Symmetric and equal throughout. Mobility: Did not attempt to sit or stand at this time. Results CBC & Chem 7: 02/03/22 06:40 02/02/22 10:30 Labs: Abnormal Lab Results - Last 24 Hours (Table) 02/03/22 02/03/22 02/03/22 Range/Units 06:40 11:23 16:23 WBC 12.25 H (4.50-10.00) X 10*3/uL RBC 3.94 L (4.40-5.60) X 10*6/uL Hgb 11.6 L (13.0-17.0) g/dL Hct 35.5 L (39.6-50.0) % Immature Gran # 0.05 H (0.00-0.04) X 10*3/uL Neutrophils # 7.94 H (1.80-7.70) X 10*3/uL Monocytes # 1.36 H (0.20-1.00) X 10*3/uL POC Glucose (mg/dL) 279 H 146 H (70-110) mg/dL 02/03/22 02/04/22 Range/Units 20:52 06:57 WBC (4.50-10.00) X 10*3/uL RBC (4.40-5.60) X 10*6/uL Hgb (13.0-17.0) g/dL Hct (39.6-50.0) % Immature Gran # (0.00-0.04) X 10*3/uL Neutrophils # (1.80-7.70) X 10*3/uL Monocytes # (0.20-1.00) X 10*3/uL POC Glucose (mg/dL) 197 H 143 H (70-110) mg/dL Assessment and Plan (1) Primary osteoarthritis of left knee Current Visit: Yes Status: Acute Code(s): M17.12 - UNILATERAL PRIMARY OSTEOARTHRITIS, LEFT KNEE SNOMED Code(s): 946988672716994 (2) Status post total left knee replacement Current Visit: Yes Status: Acute Code(s): Z96.652 - PRESENCE OF LEFT ARTIFICIAL KNEE JOINT SNOMED Code(s): 7842335339628 (3) Atrial fibrillation with RVR Current Visit: No Status: Acute Code(s): I48.91 - UNSPECIFIED ATRIAL FIBRILLATION SNOMED Code(s): 582547705212105 Plan: Comments and plan: At this time PT ongoing. We'll add OT to regimen. Patient known to me for chronic pain management. Note that there is a little pull within my opiate agreement as follows: 18. Exceptions to the opioid agreement will include: Migraine headache treatment as well as perioperative surgical pain management (including dental, podiatric in any other type of surgery). The preoperative pain. Would be treated by appropriate physician with the firm in my opiate management to be res umed upon completion of perioperative opiate pain management. The prescription of Dr. Moura will be delayed by the perioperative period, number of days. The exception is therefore the benefit of the patient as well as the treating physician, in his case surgeon. Patient does appear to have increase in pain which does not appear to be well handled by chronic pain regimen [place] 10 4 times a day. I will defer to Dr. Sue for routine perioperative pain management including hospital and post discharge. Patient will resume my pain management upon completion of surgeons pain management. This has again been discussed with patient..
[2022-02-04 11:29] LABS: African American GFR (CKD) 41.1 (60.0-200.0); BUN/Creat Ratio 16.79 Ratio (12.00-20.00); Blood Urea Nitrogen 31.9 mg/dL (9.0-27.0); Calcium 9.2 mg/dL (8.7-10.3); Magnesium 2.1 mg/dL (1.5-2.4); Non-African American GFR(CKD) 35.4 (60.0-200.0); Potassium 4.9 mmol/L (3.5-5.5)
[2022-02-04] MEDS: BACLOFEN 10 MG TAB PO PRN (11:54)
[2022-02-04] MEDS: LIDOCAINE 5% PATCH TOPICAL SCH (11:55)
[2022-02-04 12:01] LABS: Glucose,Whole Blood 174 mg/dL (70-110)
[2022-02-04] MEDS: SPIRONOLACTONE 25 MG TAB PO SCH (13:35)
--- NOTE | 2022-02-04 13:49 | P.CRDCN ---
History of Present Illness History of present illness: HISTORY OF PRESENTING ILLNESS Patient is a pleasant 66-year-old male with history of diabetes mellitus type 2, hypertension, hyperlipidemia, tobacco abuse, atrial fibrillation, carotid artery stenosis status post carotid endarterectomy, arthritis, CAD with intermediate 60- 70% RCA stenosis, 20-30% left main stenosis, 30-40% circumflex stenosis, and mild luminal irregularities of the LAD. He follows with Dr. To. He had been evaluated for surgery and had a heart catheterization 01/18/2022. FFR had been performed and showed nonischemic RCA and therefore he was cleared for surgery. He eventually underwent surgery 02/02/2022 for left knee replacement. He does have significant left lower greater than right lower extremity edema and stasis has been significant even before surgery. He additionally has significant sciatica causing left leg pain. He had prior ablation in October 2020. He states he did recently see a trauma therapist however unsure what his baseline kidney function is. Prior to his heart catheterization his creatinine had been 1.6 however in October 2020 is 1.0. Creatinine currently is 1.9. Cardiology was asked to evaluate for uncontrolled resistant hypertension. Blood pressures on presentation were in the 190s to 200s however during surgery down to the 130s to 140s. Patient does believe a major component is his pain. He states normally at home however blood pressures range any where from 140s up to 180s. He had recently been increased on his valsartan a few months ago. REVIEW OF SYSTEMS At the time of my exam: CONSTITUTIONAL: Denies fever or chills. CARDIOVASCULAR: Denies chest pain, + chronic shortness of breath, no orthopnea, PND or palpitations. +L> RLE edema RESPIRATORY: Denies cough. GASTROINTESTINAL: Denies abdominal pain, diarrhea, constipation, nausea or vomiting. MUSCULOSKELETAL: Denies myalgias. NEUROLOGIC: Denies numbness, tingling or weakness. ENDOCRINE: Denies fatigue, weight change, polydipsia or polyurina. GENITOURINARY: Denies burning, hematuria or urgency with micturation. HEMATOLOGIC: Denies history of anemia or bleeding. PHYSICAL EXAMINATION Vital signs reviewed. CONSTITUTIONAL: No apparent distress. HEENT: Head is normocephalic. Pupils are equal, round. Sclerae anicteric. Mucous membranes of the mouth are moist. No JVD. No carotid bruit. CHEST EXAMINATION: Lungs are clear to auscultation. No chest wall tenderness is noted on palpation or with deep breathing. HEART EXAMINATION: Regular rate and rhythm. S1, S2 heard. No murmurs, gallops or rub. ABDOMEN: Soft, nontender. Positive bowel sounds. EXTREMITIES: 2+ peripheral pulses, +LLE>RLE 2+ edema and no calf tenderness. NEUROLOGIC EXAMINATION: Patient is awake, alert and oriented x3. ASSESSMENT 1. Status post left total knee arthroplasty 02/02/2022 2. Hypertension, uncontrolled likely exacerbated by pain 3. Acute on chronic kidney disease. Mild increase from last month which may be related to contrast-induced nephropathy or recent Toradol/ NSAIDs 4. Paroxysmal atrial fibrillation status post ablation 5. Carotid artery stenosis status post carotid endarterectomy 6. Left greater than right lower extremity edema. Likely component of venous insufficiency versus possible component of heart failure 7. CAD with 60-70% RCA stenosis. FFR negative 8. Tobacco abuse PLAN Patient with elevated blood pressure readings and admits normal at home blood pressures are occasionally in the 140s however often in the 150s to 170s. We will attempt better blood pressure control and add Aldactone. They consider stronger diuretic however first monitor kidney function with increased from last month each may be related to contrast-induced nephropathy from recent heart catheterization. If stable would likely consider changing hydrochlorothiazide to Lasix. Lower extremity edema likely component of venous insufficiency however may be component of heart failure as well. Check proBNP tomorrow. If blood pressure improved and kidney function stable, likely discharge home tomorrow. Avoid NSAIDs given CKD. Past Medical History Past Medical History: Atrial Fibrillation, Chest Pain / Angina, Hyperlipidemia, Hypertension History of Any Multi-Drug Resistant Organisms: None Reported Past Surgical History: Appendectomy, Cardiac Ablation, Ear Surgery, Heart Catheterization, Orthopedic Surgery Additional Past Surgical History / Comment(s): Ear surgery Past Anesthesia/Blood Transfusion Reactions: Previous Problems w/ Anesthesia Additional Past Anesthesia/Blood Transfusion Reaction / Comment(s): "Woke up fighting X1". Past Psychological History: No Psychological Hx Reported Smoking Status: Current every day smoker Past Alcohol Use History: None Reported Additional Past Alcohol Use History / Comment(s): Has been smoking since 14 yrs of age, down to 1/2 ppd. Past Drug Use History: Marijuana Additional Drug Use History / Comment(s): CBD oil PRN pain. Aware no use 24 hrs prior to procedure. - Past Family History Mother Family Medical History: No Reported History Medications and Allergies Home Medications Medication Instructions Recorded Confirmed Type Aspirin [Adult Low Dose Aspirin EC] 81 mg PO DAILY 08/12/17 02/02/22 History Hydrocodone/Acetaminophen [[place] 1 tab PO TID 12/08/17 02/02/22 History 10-325] Omeprazole [PriLOSEC] 20 mg PO QAM 12/08/17 02/02/22 History Albuterol Inhaler [Ventolin Hfa 2 puff INHALATION QID 08/21/20 02/02/22 History Inhaler] Cholecalciferol [Vitamin D3 (25 50 mcg PO DAILY 08/21/20 02/02/22 History Mcg = 1000 Iu)] Insulin Glargine,Hum.rec.anlog 35 unit SQ HS 08/21/20 02/02/22 History [Basaglar Kwikpen U-100] Semaglutide [Ozempic] 1 mg SQ MO 08/21/20 02/02/22 History Insulin Aspart [NovoLOG] See Protocol SQ AC-TID 09/18/20 02/02/22 History Flecainide [Tambocor] 50 mg PO Q12HR #180 tablet 10/07/20 02/02/22 Rx Atorvastatin [Lipitor] 40 mg PO HS 01/14/22 02/02/22 History Fluticasone Propionate 110 Mcg 2 puff INHALATION BID 01/14/22 02/02/22 History [Flovent 110 Mcg Inhaler] Gabapentin 300 mg PO HS 01/14/22 02/02/22 History Multivit-Min/Folic/Vit K/Lycop 1 each PO DAILY 01/14/22 02/02/22 History [Men's Multivitamin Tablet] Sodium Bicarbonate Tab 1,300 mg PO BID 01/14/22 02/02/22 History Valsartan 320 mg PO HS 01/14/22 02/02/22 History carvediloL [Coreg*] 12.5 mg PO BID 01/14/22 02/02/22 History hydroCHLOROthiazide [Hydrodiuril] 25 mg PO DAILY 01/14/22 02/02/22 History Rivaroxaban [Xarelto] 20 mg PO HS 01/29/22 02/02/22 History amLODIPine [Norvasc] 10 mg PO QAM 01/29/22 02/02/22 History metFORMIN HCL 1,000 mg PO BID 01/29/22 02/02/22 History Sennosides [Senokot] 2 tab PO DAILY PRN #60 tablet 02/01/22 Rx Ketorolac [Toradol] 10 mg PO Q6HR PRN #20 tab 02/03/22 Rx Baclofen 10 mg PO TID PRN #30 tab 02/04/22 Rx Allergies Allergy/AdvReac Type Severity Reaction Status Date / Time No Known Allergies Allergy Verified 02/02/22 10:01 Physical Exam Vitals: Vital Signs Temp Pulse Pulse Pulse Resp BP BP 02/04/22 11:13 76 02/04/22 11:06 80 02/04/22 10:34 83 177/73 02/04/22 07:04 72 02/04/22 06:58 76 02/04/22 05:31 79 197/92 02/04/22 02:00 97.5 F L 71 17 168/85 02/03/22 23:47 200/67 02/03/22 22:56 191/77 02/03/22 21:40 70 02/03/22 21:32 72 02/03/22 20:36 196/92 02/03/22 18:53 97.3 F L 70 17 211/81 02/03/22 18:15 192/86 02/03/22 16:19 69 18 02/03/22 16:09 65 18 02/03/22 14:02 65 194/83 Pulse Ox 02/04/22 11:13 02/04/22 11:06 02/04/22 10:34 02/04/22 07:04 02/04/22 06:58 02/04/22 05:31 02/04/22 02:00 97 02/03/22 23:47 02/03/22 22:56 02/03/22 21:40 02/03/22 21:32 02/03/22 20:36 02/03/22 18:53 97 02/03/22 18:15 02/03/22 16:19 02/03/22 16:09 02/03/22 14:02 Intake and Output 02/03/22 02/04/22 02/04/22 22:59 06:59 14:59 Other: # Voids 2 Results 02/03/22 06:40 02/04/22 05:35 Comprehensive Metabolic Panel 02/04/22 Range/Units 05:35 Sodium 138 (135-145) mmol/L Potassium 4.9 (3.5-5.5) mmol/L Chloride 103 (96-109) mmol/L Carbon Dioxide 22.0 (20.0-27.5) mmol/L BUN 31.9 H (9.0-27.0) mg/dL Creatinine 1.9 H (0.6-1.5) mg/dL Glucose 140 H (70-110) mg/dL Calcium 9.2 (8.7-10.3) mg/dL Current Medications Generic Name Dose Route Start Last Admin Trade Name Freq PRN Reason Stop Dose Admin Hydrocodone Bitart/Acetaminophen 1 each 02/03/22 15:45 02/04/22 11:54 Hydrocodone/Apap 10-325mg 1 Each Tab PO 1 each QID PRN Administration Pain Albuterol Sulfate 2.5 mg 02/03/22 16:00 02/04/22 11:04 Albuterol Nebulized 2.5 Mg/3 Ml INHALATION 2.5 mg RT-QID DENZEL Administration Amlodipine Besylate 10 mg 02/03/22 12:30 02/04/22 09:08 Amlodipine 10 Mg Tab PO 10 mg QAM DENZEL Administration Aspirin 81 mg 02/04/22 09:00 02/04/22 09:07 Aspirin 81 Mg PO 81 mg DAILY DENZEL Administration Atorvastatin Calcium 40 mg 02/03/22 21:00 02/03/22 21:03 Atorvastatin 40 Mg Tab PO 40 mg HS DENZEL Administration Baclofen 10 mg 02/04/22 08:49 02/04/22 11:54 Baclofen 10 Mg Tab PO 10 mg TID PRN Administration Muscle Spasm Bisacodyl 10 mg 02/02/22 11:02 Bisacodyl 10 Mg Supp RECTAL 03/04/22 11:03 DAILY PRN Constipation Carvedilol 12.5 mg 02/03/22 12:30 02/04/22 09:07 Carvedilol 12.5 Mg Tab PO 12.5 mg BID-W/MEALS DENZEL Administration Cholecalciferol 50 mcg 02/04/22 09:00 02/04/22 09:07 Cholecalciferol 25 Mcg (1000 Iu) Tablet PO 50 mcg DAILY DENZEL Administration Ropivacaine 1,090 mg/ Bandage/ 0 mg 02/02/22 11:27 02/02/22 13:15 Support Products 1 each MISCELLANE 03/04/22 11:28 1,090 mg Q2H PRN Administration Breakthrough Pain Dextrose/Water 25 ml 02/03/22 14:38 Dextrose 50% Syringe 50 Ml IVP PER PROTOCOL PRN Hypoglycemia Protocol Dextrose/Water 50 ml 02/03/22 14:38 Dextrose 50% Syringe 50 Ml IVP PER PROTOCOL PRN Hypoglycemia Protocol Flecainide Acetate 50 mg 02/03/22 12:30 02/04/22 09:08 Flecainide 50 Mg Tab PO 50 mg Q12HR DENZEL Administration Gabapentin 300 mg 02/04/22 09:00 02/04/22 09:07 Gabapentin 300 Mg Cap PO 300 mg TID DENZEL Administration Hydralazine HCl 25 mg 02/03/22 18:14 02/04/22 05:32 Hydralazine Hcl 25 Mg Tab PO 25 mg QID PRN Administration Blood Pressure - High Hydrochlorothiazide 25 mg 02/03/22 12:30 02/04/22 09:07 Hydrochlorothiazide 25 Mg Tab PO 25 mg DAILY DENZEL Administration Hydromorphone HCl 0.5 mg 02/02/22 11:02 02/03/22 01:38 Hydromorphone 0.5 Mg/0.5 Ml Syringe IVP 03/04/22 11:03 0.5 mg Q3HR PRN Administration Pain Scale 4 to 6 Hydromorphone HCl 1 mg 02/02/22 11:02 02/04/22 13:34 Hydromorphone 1 Mg/Ml 1 Ml Syringe IVP 03/04/22 11:03 1 mg Q3HR PRN Administration Pain Scale 7 to 10 Hydromorphone HCl 0.25 mg 02/02/22 11:02 Hydromorphone 0.5 Mg/0.5 Ml Syringe IVP 03/04/22 11:03 Q3HR PRN Pain Scale 1 to 3 Lactated Ringer's 1,000 mls @ 20 mls/hr 02/02/22 05:48 02/04/22 06:22 Lactated Ringers IV 03/04/22 05:49 Not Given .Q24H [facility] Insulin Aspart 0 unit 02/03/22 17:30 02/04/22 13:34 Insulin Aspart (Novolog) 100 Unit/Ml Vial SQ 2 unit AC-TID DENZEL Administration Protocol Insulin Detemir 35 unit 02/03/22 21:00 02/03/22 21:03 Insulin Detemir (Levemir) 100 Unit/Ml Syr SQ 35 unit HS DENZEL Administration Lidocaine 1 patch 02/04/22 09:00 02/04/22 11:55 Lidocaine 5% Patch TOPICAL 1 patch DAILY DENZEL Administration Protocol Magnesium Hydroxide 2,400 mg 02/02/22 11:02 Magnesium Hydroxide 2,400 Mg/10 Ml Cup PO 03/04/22 11:03 DAILY PRN Constipation Naloxone HCl 0.2 mg 02/02/22 11:02 Naloxone 0.4 Mg/Ml 1 Ml Vial IV 03/04/22 11:03 Q2M PRN Opioid Reversal Ondansetron HCl 4 mg 02/02/22 11:02 Ondansetron 4 Mg/2 Ml Vial IVP 03/04/22 11:03 Q8HR PRN Nausea And Vomiting Rivaroxaban 20 mg 02/03/22 17:30 02/03/22 16:39 Rivaroxaban 20 Mg Tab PO 03/05/22 17:31 20 mg W/SUPPER DENZEL Administration Protocol Senna/Docusate Sodium 2 each 02/02/22 21:00 02/03/22 21:03 Sennosides-Docusate Sodium 1 Each Tab PO 03/04/22 21:01 2 each HS DENZEL Administration Sodium Biphosphate/Sodium Phosphate 133 ml 02/02/22 11:02 Na Phos,M-B/Na Phos,Di-Ba 133 Ml Enema RECTAL 03/04/22 11:03 DAILY PRN Constipation Spironolactone 50 mg 02/04/22 12:15 02/04/22 13:35 Spironolactone 25 Mg Tab PO 50 mg DAILY DENZEL Administration Valsartan 320 mg 02/03/22 21:00 02/03/22 18:20 Valsartan 160 Mg Tab PO 320 mg HS DENZEL Administration Intake and Output 02/03/22 02/04/22 02/04/22 22:59 06:59 14:59 Other: # Voids 2 02/03/22 06:40 02/04/22 05:35
[2022-02-04 16:37] LABS: Glucose,Whole Blood 117 mg/dL (70-110)
[2022-02-04] MEDS: RIVAROXABAN 20 MG TAB PO SCH (17:16)
--- NOTE | 2022-02-04 18:49 | P.PN ---
Subjective This is a pleasant 66 years old male with past medical history of diabetes mellitus, hypertension, hyperlipidemia, cigarette smoker, atrial fibrillation on anticoagulation as an outpatient. Was admitted to the surgical unit for left knee arthroplasty given his severe degenerative disease. He is status post left total knee arthroplasty. Today is postoperative day #1. Patient was sitting in chair looks comfortable. He denies chest pain or dysp monica. No abdominal pain, no vomiting. He tolerated diet well. Patient told me he is walking in the room. Blood pressure is elevated this morning 194/81. Patient blood pressure medication was held due to surgery. We are going to resume his flecainide, Coreg, hydrochlorothiazide and Norvasc. Also patient can resume his valsartn Patient also already started on his home dose of xeralto and he looks tolerating that well. Rest of his vitals are stable and patient is afebrile. Labs reviewed showing mild leukocytosis 12.5 hemoglobin 11.6. Glucose controlled potassium 4.9. 02/04/2022 Patient sitting in chair still complaining of from pain at her surgery site but also is complaining of from left sciatic Pain and that's been followed up by February orthopedic team Dr. Sue as patient explains. Through the day his pain become less severe. Patient continued on pain medication per surgery team currently on Van. His blood pressure was still elevated this morning. Patient follow up with Dr. Boyle, citizen participation specialist added Aldactone 50 mg today. Creatinine came back elevated 1.9, last month was 1.6 and last year was 0.9-1.0. Not sure if this is acute injury or progressive of chronic disease. We will order urine analysis and asked to check for bladder scan. Ideally valsartan should be avoided, however because of his poorly controlled hypertension we only lower the dose 320 down to 160 mg tonight. We will keep monitoring her blood pressure. Systolic blood pressure through the evening improved 150-160. Check creatinine tomorrow and monitor blood pressure Metformin remains on hold, sugar is controlled on insulin Objective - Vital Signs Vital signs: Vital Signs Temp 97.5 F L 02/04/22 02:00 Pulse 76 02/04/22 11:13 Resp 17 02/04/22 02:00 BP 177/73 02/04/22 10:34 Pulse Ox 97 02/04/22 02:00 FiO2 Intake & Output 02/03/22 02/04/22 02/04/22 18:59 06:59 18:59 Other: Voiding Method Toilet Urinal # Voids 2 - Exam GENERAL: The patient is alert and oriented x3, not in any acute distress. Well developed, well nourished. HEENT: Pupils are round and equally reacting to light. EOMI. No scleral icterus. No conjunctival pallor. Normocephalic, atraumatic. No pharyngeal erythema. No thyromegaly. CARDIOVASCULAR: S1 and S2 present. No murmurs, rubs, or gallops. PULMONARY: Chest is clear to auscultation, no wheezing or crackles. ABDOMEN: Soft, nontender, nondistended, normoactive bowel sounds. No palpable or ganomegaly. MUSCULOSKELETAL: No joint swelling or deformity. -EXTREMITIES: No cyanosis, clubbing, or pedal edema. Left knee wound with a dressing is in place NEUROLOGICAL: Gross neurological examination did not reveal any focal deficits. SKIN: No rashes. no petechiae. - Labs CBC & Chem 7: 02/03/22 06:40 02/04/22 05:35 Labs: Abnormal Lab Results - Last 24 Hours (Table) 02/03/22 02/03/22 02/03/22 Range/Units 11:23 16:23 20:52 POC Glucose (mg/dL) 279 H 146 H 197 H (70-110) mg/dL 02/04/22 Range/Units 06:57 POC Glucose (mg/dL) 143 H (70-110) mg/dL Assessment and Plan Assessment: Severe left knee osteoarthritis, status post left total knee arthroplasty. Today is postoperative day #2 Hypertension, controlled because of holding medication. Resume his home medication and monitor blood pressure Acute kidney injury versus progressive chronic kidney disease secondary to diabetic nephropathy Diabetes mellitus, type II mild leukocytosis, most likely reactive. No signs of infection. No need for antibiotic Hyperlipidemia Nicotine dependence Obesity with BMI of 30.8 Plan: This is a pleasant 66 years old male who presents with left knee arthroplasty. Patient looks generally doing well. His pain looks controlled His blood pressure is still elevated, continue on Norvasc and Coreg.also flecainide. Lordosis of valsartan to 160 mg daily. Litigation Legal Secretary on the case, Aldactone added keep monitor blood pressure. Check creatinine tomorrow. Check urinalysis and bladder scan. If creatinine worsens tomorrow then nephrology consult may be considered resume aspirin and has had multiple on discharge if there is no surgical contraindication Continue with DVT and GI prophylaxis, currently on Protonix PT/OT Keep monitoring white blood cell Thank you for consulting us
[2022-02-04] MEDS: SENNOSIDES-DOCUSATE SODIUM 1 EACH TAB PO SCH (19:25)
[2022-02-04] MEDS: ATORVASTATIN 40 MG TAB PO SCH (19:26)
[2022-02-04 20:10] LABS: Glucose,Whole Blood 202 mg/dL (70-110)
[2022-02-04] MEDS: HYDROmorphone 0.5 MG/0.5 ML SYRINGE IVP PRN (20:48)
[2022-02-04] MEDS: INSULIN DETEMIR (LEVEMIR) 100 UNIT/ML SYR SQ SCH (20:48)
[2022-02-04] MEDS ORDERED: VALSARTAN 160 MG TAB PO SCH (21:00)
[2022-02-04 21:28] LABS: Appearance,Urine Clear (Clear); Bilirubin,Urine Negative (Negative); Blood,Urine Trace (Negative); Color,Urine Light Yellow; Glucose,Urine (UA) 4+ (Negative); Hyaline Casts,Urine 1 /lpf (0-2); Ketones,Urine Negative (Negative); Leukocyte Esterase,Urine Negative (Negative); Mucus,Urine Rare /hpf; Nitrite,Urine Negative (Negative); PH, Urine 6.5 (5.0-8.0); Protein,Urine 3+ (Negative); RBC,Urine 1 /hpf (0-5); Specific Gravity,Urine 1.013 (1.001-1.035); Urobilinogen,Urine <2.0 mg/dL (<2.0); WBC,Urine <1 /hpf (0-5)
[2022-02-05 01:36] VITALS: RESP 16
[2022-02-05] MEDS: HYDROcodone/APAP 10-325MG 1 EACH TAB PO PRN ×3 (02:05→14:42)
[2022-02-05] MEDS: HYDROmorphone 1 MG/ML 1 ML SYRINGE IVP PRN ×2 (03:30→07:37)
[2022-02-05] MEDS: LACTATED RINGERS 1,000 ML IV SCH (04:39)
[2022-02-05] MEDS: ALBUTEROL NEBULIZED 2.5 MG/3 ML INHALATION SCH ×2 (07:08→11:01)
[2022-02-05 07:09] LABS: Glucose,Whole Blood 139 mg/dL (70-110)
[2022-02-05] MEDS: hydroCHLOROthiazide 25 MG TAB PO SCH (07:32)
[2022-02-05] MEDS: BACLOFEN 10 MG TAB PO PRN (07:32)
[2022-02-05] MEDS: SPIRONOLACTONE 25 MG TAB PO SCH (07:32)
[2022-02-05] MEDS: amLODIPine 10 MG TAB PO SCH (07:33)
[2022-02-05] MEDS: GABAPENTIN 300 MG CAP PO SCH (07:33)
[2022-02-05] MEDS: carvediloL 12.5 MG TAB PO SCH (07:33)
[2022-02-05] MEDS: ASPIRIN 81 MG PO SCH (07:33)
[2022-02-05] MEDS: CHOLECALCIFEROL 25 MCG (1000 IU) TABLET PO SCH (07:33)
[2022-02-05] MEDS: FLECAINIDE 50 MG TAB PO SCH (07:34)
[2022-02-05] MEDS: LIDOCAINE 5% PATCH TOPICAL SCH (07:34)
[2022-02-05] MEDS: INSULIN ASPART (NovoLOG) 100 UNIT/ML VIAL SQ SCH ×2 (08:43→12:24)
[2022-02-05 08:55] LABS: Basophils % (A) 1.1 %; Eosinophils # (A) 0.19 X 10*3/uL (0.04-0.35); HCT 39.2 % (39.6-50.0); HGB 12.8 g/dL (13.0-17.0); Immature Grans, Automated 0.4 %; Lymphocytes # (A) 2.81 X 10*3/uL (0.90-5.00); Lymphocytes % (A) 30.2 %; MCH 29.5 pg (27.0-32.0); MCHC 32.7 g/dL (32.0-37.0); MCV 90.3 fL (80.0-97.0); Mean Platelet Volume 10.5 fL (9.5-12.2); Monocytes # (A) 0.96 X 10*3/uL (0.20-1.00); Monocytes % (A) 10.3 %; NRBC Per 100 WBC 0.2 /100 WBCS (0.0-0.0); Neutrophils # (A) 5.22 X 10*3/uL (1.80-7.70); Platelet Count 301 X 10*3/uL (140-440); RBC 4.34 X 10*6/uL (4.40-5.60); RDW 13.3 % (11.5-14.5); WBC 9.32 X 10*3/uL (4.50-10.00)
[2022-02-05 09:16] VITALS: TEMP 98.4
[2022-02-05 09:21] LABS: African American GFR (CKD) 38.6 (60.0-200.0); Albumin 3.2 g/dL (3.8-4.9); Anion Gap 13.1 mmol/L (10.00-18.00); BUN/Creat Ratio 19.65 Ratio (12.00-20.00); Blood Urea Nitrogen 39.3 mg/dL (9.0-27.0); Calcium 9.2 mg/dL (8.7-10.3); Carbon Dioxide 18.9 mmol/L (20.0-27.5); Non-African American GFR(CKD) 33.3 (60.0-200.0); Phosphorus 4.2 mg/dL (2.4-5.1); Potassium 4.8 mmol/L (3.5-5.5)
--- NOTE | 2022-02-05 09:49 | P.DS ---
Providers Date of admission: 02/04/22 08:06 Expected date of discharge: 02/05/22 Attending physician: Glenn Sue Consults: 02/02/22 11:02 Consult Physician Routine Consulting Provider: Carmelo Duckworth Consult Reason/Comments: medical management and anticoagulation Do you want consulting provider notified?: Yes 02/03/22 14:25 Consult Physician Urgent Consulting Provider: Vinnie Garcia Consult Reason/Comments: Pain Management Do you want consulting provider notified?: Yes 02/04/22 08:55 Consult Physician Routine Consulting Provider: Riley To Consult Reason/Comments: resistant HTN Do you want consulting provider notified?: Yes Primary care physician: Brittany Osorio, NPC - Discharge Diagnosis(es) (1) Primary osteoarthritis of left knee Current Visit: Yes Status: Acute (2) Status post total left knee replacement Current Visit: Yes Status: Acute Hospital Course: This is a 66-year-old male with known history of degenerative arthritis of the left knee. The patient presented for evaluation as an outpatient. After discussion and consideration patient elects to proceed with total knee arthroplasty. The patient is seen preoperatively by Dr. Sue and medically cleared for surgery by their primary care physician. Patient is admitted to [facility] on 02/02/2022 for total knee arthroplasty. The procedure is performed without complication or sequelae. The patient is doing well postoperatively. Labs and vital signs are stable on day of discharge. Patient was evaluated by cardiology for hypertension during this admission. On day of discharge patient's knee incision is healing well. There is minimal erythema. There is no drainage noted at this time. There is minimal soft tissue swelling to the knee. Patient has full foot and ankle motion without difficulty or pain. Calf is soft and nontender to palpation. Neurovascular status to the left lower extremity is intact. Patient is discharged home in good condition. Please see med rec for accurate list of home medications. Patient Condition at Discharge: Good Plan - Discharge Summary Discharge Rx Participant: Yes New Discharge Prescriptions: New Ketorolac [Toradol] 10 mg PO Q6HR PRN #20 tab PRN Reason: Pain Sennosides [Senokot] 2 tab PO DAILY PRN #60 tablet PRN Reason: Constipation Baclofen 10 mg PO TID PRN #30 tab PRN Reason: Spasms No Action Aspirin [Adult Low Dose Aspirin EC] 81 mg PO DAILY Omeprazole [PriLOSEC] 20 mg PO QAM Hydrocodone/Acetaminophen [[place] 10-325] 1 tab PO TID Semaglutide [Ozempic] 1 mg SQ MO Insulin Glargine,Hum.rec.anlog [Basaglar Kwikpen U-100] 35 unit SQ HS Cholecalciferol [Vitamin D3 (25 Mcg = 1000 Iu)] 50 mcg PO DAILY Albuterol Inhaler [Ventolin Hfa Inhaler] 2 puff INHALATION QID Insulin Aspart [NovoLOG] See Protocol SQ AC-TID Sodium Bicarbonate Tab 1,300 mg PO BID Fluticasone Propionate 110 Mcg [Flovent 110 Mcg Inhaler] 2 puff INHALATION BID carvediloL [Coreg*] 12.5 mg PO BID Atorvastatin [Lipitor] 40 mg PO HS Valsartan 320 mg PO HS Multivit-Min/Folic/Vit K/Lycop [Men's Multivitamin Tablet] 1 each PO DAILY Flecainide [Tambocor] 50 mg PO Q12HR #180 tablet hydroCHLOROthiazide [Hydrodiuril] 25 mg PO DAILY Gabapentin 300 mg PO HS amLODIPine [Norvasc] 10 mg PO QAM Rivaroxaban [Xarelto] 20 mg PO HS metFORMIN HCL 1,000 mg PO BID Discharge Medication List Aspirin [Adult Low Dose Aspirin EC] 81 mg PO DAILY 08/12/17 [History] Hydrocodone/Acetaminophen [[place] 10-325] 1 tab PO TID 12/08/17 [History] Omeprazole [PriLOSEC] 20 mg PO QAM 12/08/17 [History] Albuterol Inhaler [Ventolin Hfa Inhaler] 2 puff INHALATION QID 08/21/20 [History] Cholecalciferol [Vitamin D3 (25 Mcg = 1000 Iu)] 50 mcg PO DAILY 08/21/20 [History] Insulin Glargine,Hum.rec.anlog [Basaglar Kwikpen U-100] 35 unit SQ HS 08/21/20 [History] Semaglutide [Ozempic] 1 mg SQ MO 08/21/20 [History] Insulin Aspart [NovoLOG] See Protocol SQ AC-TID 09/18/20 [History] Flecainide [Tambocor] 50 mg PO Q12HR #180 tablet 10/07/20 [Rx] Atorvastatin [Lipitor] 40 mg PO HS 01/14/22 [History] Fluticasone Propionate 110 Mcg [Flovent 110 Mcg Inhaler] 2 puff INHALATION BID 01/14/22 [History] Gabapentin 300 mg PO HS 01/14/22 [History] Multivit-Min/Folic/Vit K/Lycop [Men's Multivitamin Tablet] 1 each PO DAILY 01/14/22 [History] Sodium Bicarbonate Tab 1,300 mg PO BID 01/14/22 [History] Valsartan 320 mg PO HS 01/14/22 [History] carvediloL [Coreg*] 12.5 mg PO BID 01/14/22 [History] hydroCHLOROthiazide [Hydrodiuril] 25 mg PO DAILY 01/14/22 [History] Rivaroxaban [Xarelto] 20 mg PO HS 01/29/22 [History] amLODIPine [Norvasc] 10 mg PO QAM 01/29/22 [History] metFORMIN HCL 1,000 mg PO BID 01/29/22 [History] Sennosides [Senokot] 2 tab PO DAILY PRN #60 tablet 02/01/22 [Rx] Ketorolac [Toradol] 10 mg PO Q6HR PRN #20 tab 02/03/22 [Rx] Baclofen 10 mg PO TID PRN #30 tab 02/04/22 [Rx] Follow up Appointment(s)/Referral(s): [facility],Equipment [NON-STAFF] - As Needed (Please call [facility] once home to arrange delivery of the Continous Passive Motion (CPM) machine. ) [facility] [NON-STAFF] - 1-2 Days ([facility] will call you to schedule your in home physical therapy visits. ) Glenn Sue DO [Doctor of Osteopathic Medicine] - 02/19/22 2:20 pm Activity/Diet/Wound Care/Special Instructions: Weightbearing as tolerated with walker. Leave dressing intact. Dressing may be removed by home care nurse or by patient 7 days postoperatively. CPM 5-6 hours daily as tolerated. May shower with dressing on. Please resume Xarelto. Pain management per Dr Garcia. Please wear compression stockings during the day until follow-up appointment to help prevent blood clots. May remove at night. Follow-up with [facility] in 2 weeks, please call with any questions or concerns [phone] Discharge Disposition: HOME WITH HOME HEALTH SERVICES
[2022-02-05 11:11] VITALS: PULSE 63
[2022-02-05 11:43] LABS: Glucose,Whole Blood 189 mg/dL (70-110)
--- NOTE | 2022-02-05 13:04 | P.PN ---
Subjective Progress Note Date: 02/05/22 HISTORY OF PRESENT ILLNESS: Patient is a pleasant 66-year-old male with history of diabetes mellitus type 2, hypertension, hyperlipidemia, tobacco abuse, atrial fibrillation, carotid artery stenosis status post carotid endarterectomy, arthritis, CAD with intermediate 60- 70% RCA stenosis, 20-30% left main stenosis, 30-40% circumflex stenosis, and mild luminal irregularities of the LAD. He follows with Dr. To. He had been evaluated for surgery and had a heart catheterization 01/18/2022. FFR had been performed and showed nonischemic RCA and therefore he was cleared for surgery. He eventually underwent surgery 02/02/2022 for left knee replacement. He does have significant left lower greater than right lower extremity edema and stasis has been significant even before surgery. He additionally has significant sciatica causing left leg pain. He had prior ablation in October 2020. He states he did recently see a wheel blocker however unsure what his baseline kidney function is. Prior to his heart catheterization his creatinine had been 1.6 however in October 2020 is 1.0. Creatinine currently is 1.9. Cardiology was asked to evaluate for uncontrolled resistant hypertension. Blood pressures on presentation were in the 190s to 200s however during surgery down to the 130s to 140s. Patient does believe a major component is his pain. He states normally at home however blood pressures range any where from 140s up to 180s. He had recently been increased on his valsartan a few months ago. 02/05/2022 Patient examined this morning. Patient is sitting up in the chair. Patient's spouse is present. Patient denies chest pain or pressure. He denies shortness of breath. He continues to report pain in his left knee. Patient's blood pressure this morning is elevated with a systolic in the 160s. Recheck blood pressure after his morning medications improved slightly with a systolic of 153. The patient is very anxious to be discharged home. PHYSICAL EXAM: VITAL SIGNS: Reviewed. GENERAL: Well-developed in no acute distress. NECK: Supple. No JVD or thyromegaly LUNGS: Respirations even and unlabored. Lungs essentially clear to auscultation bilaterally. HEART: Regular rate and rhythm. S1 and S2 heard. EXTREMITIES: Normal range of motion. No clubbing or cyanosis. Peripheral pulses intact. No lower extremity edema ASSESSMENT: 1. Status post left total knee arthroplasty 02/02/2022 2. Hypertension, uncontrolled likely exacerbated by pain 3. Acute on chronic kidney disease. Mild increase from last month which may be related to contrast-induced nephropathy or recent Toradol/ NSAIDs 4. Paroxysmal atrial fibrillation status post ablation 5. Carotid artery stenosis status post carotid endarterectomy 6. Left greater than right lower extremity edema. Likely component of venous insufficiency versus possible component of heart failure 7. CAD with 60-70% RCA stenosis. FFR negative 8. Tobacco abuse PLAN: Continue current cardiac medications Continue to monitor blood pressure Patient may be discharged home today from a cardiac standpoint on current card iac medications and follow up on an outpatient basis. Nurse practitioner note has been reviewed by physician. Signing provider agrees with the documented findings, assessment, and plan of care. Objective - Vital Signs Vital signs: Vital Signs Temp 98.4 F 02/05/22 08:00 Pulse 63 02/05/22 11:11 Resp 16 02/05/22 08:00 BP 168/85 02/05/22 08:00 Pulse Ox 95 02/05/22 08:00 FiO2 Intake & Output 02/04/22 02/05/22 02/05/22 18:59 06:59 18:59 Other: Voiding Method Toilet Toilet Urinal Urinal # Voids 4 6 - Labs CBC & Chem 7: 02/05/22 05:27 02/05/22 05:27 Labs: Abnormal Lab Results - Last 24 Hours (Table) 02/04/22 02/04/22 02/04/22 Range/Units 16:35 20:09 21:02 RBC (4.40-5.60) X 10*6/uL Hgb (13.0-17.0) g/dL Hct (39.6-50.0) % Absolute Nucleated RBC (0.00-0.00) X 10*3/uL NRBC/100 WBC Diff (0.0-0.0) /100 WBCS Carbon Dioxide (20.0-27.5) mmol/L BUN (9.0-27.0) mg/dL Creatinine (0.6-1.5) mg/dL Est GFR (CKD-EPI)AfAm (60.0-200.0) Est GFR (CKD-EPI)NonAf (60.0-200.0) Glucose (70-110) mg/dL POC Glucose (mg/dL) 117 H 202 H (70-110) mg/dL Albumin (3.8-4.9) g/dL Urine Protein 3+ H (Negative) Urine Glucose (UA) 4+ H (Negative) Urine Blood Trace H (Negative) Urine Mucus Rare H (None) /hpf 02/05/22 02/05/22 02/05/22 Range/Units 05:27 05:27 07:07 RBC 4.34 L (4.40-5.60) X 10*6/uL Hgb 12.8 L (13.0-17.0) g/dL Hct 39.2 L (39.6-50.0) % Absolute Nucleated RBC 0.02 H (0.00-0.00) X 10*3/uL NRBC/100 WBC Diff 0.2 H (0.0-0.0) /100 WBCS Carbon Dioxide 18.9 L (20.0-27.5) mmol/L BUN 39.3 H (9.0-27.0) mg/dL Creatinine 2.0 H (0.6-1.5) mg/dL Est GFR (CKD-EPI)AfAm 38.6 L (60.0-200.0) Est GFR (CKD-EPI)NonAf 33.3 L (60.0-200.0) Glucose 158 H (70-110) mg/dL POC Glucose (mg/dL) 139 H (70-110) mg/dL Albumin 3.2 L (3.8-4.9) g/dL Urine Protein (Negative) Urine Glucose (UA) (Negative) Urine Blood (Negative) Urine Mucus (None) /hpf 02/05/22 Range/Units 11:40 RBC (4.40-5.60) X 10*6/uL Hgb (13.0-17.0) g/dL Hct (39.6-50.0) % Absolute Nucleated RBC (0.00-0.00) X 10*3/uL NRBC/100 WBC Diff (0.0-0.0) /100 WBCS Carbon Dioxide (20.0-27.5) mmol/L BUN (9.0-27.0) mg/dL Creatinine (0.6-1.5) mg/dL Est GFR (CKD-EPI)AfAm (60.0-200.0) Est GFR (CKD-EPI)NonAf (60.0-200.0) Glucose (70-110) mg/dL POC Glucose (mg/dL) 189 H (70-110) mg/dL Albumin (3.8-4.9) g/dL Urine Protein (Negative) Urine Glucose (UA) (Negative) Urine Blood (Negative) Urine Mucus (None) /hpf
[2022-02-05 13:48] VITALS: BP 159/67
--- NOTE | 2022-02-06 13:47 | P.PN ---
Subjective Progress Note Date: 02/05/22 66 years old male with past medical history of diabetes mellitus, hypertension, hyperlipidemia, cigarette smoker, atrial fibrillation on anticoagulation as an outpatient. Was admitted to the surgical unit for left knee arthroplasty given his severe degenerative disease. He is status post left total knee arthroplasty. Today is postoperative day #1. Patient was sitting in chair looks comfortable. He denies chest pain or dyspnea. No abdominal pain, no vomiting. He tolerated diet well. Patient told me he is walking in the room. Blood pressure is elevated this morning 194/81. Patient blood pressure medication was held due to surgery. We are going to resume his flecainide, Coreg, hydrochlorothiazide and Norvasc. Also patient can resume his valsartn Patient also already started on his home dose of xeralto and he looks tolerating that well. Rest of his vitals are stable and patient is afebrile. Labs reviewed showing mild leukocytosis 12.5 hemoglobin 11.6. Glucose controlled potassium 4.9. Objective - Vital Signs Vital signs: Vital Signs Temp 98.4 F 02/05/22 08:00 Pulse 63 02/05/22 11:11 Resp 16 02/05/22 08:00 BP 168/85 02/05/22 08:00 Pulse Ox 95 02/05/22 08:00 FiO2 Intake & Output 02/04/22 02/05/22 02/05/22 18:59 06:59 18:59 Other: Voiding Method Toilet Toilet Urinal Urinal # Voids 4 6 - Exam GENERAL: The patient is alert and oriented x3, not in any acute distress. Well developed, well nourished. HEENT: Pupils are round and equally reacting to light. EOMI. No scleral icterus. No conjunctival pallor. Normocephalic, atraumatic. No pharyngeal erythema. No thyromegaly. CARDIOVASCULAR: S1 and S2 present. No murmurs, rubs, or gallops. PULMONARY: Chest is clear to auscultation, no wheezing or crackles. ABDOMEN: Soft, nontender, nondistended, normoactive bowel sounds. No palpable organomegaly. MUSCULOSKELETAL: No joint swelling or deformity. -EXTREMITIES: No cyanosis, clubbing, or pedal edema. Left knee wound with a dressing is in place NEUROLOGICAL: Gross neurological examination did not reveal any focal deficits. SKIN: No rashes. no petechiae. - Labs CBC & Chem 7: 02/05/22 05:27 02/05/22 05:27 Labs: Abnormal Lab Results - Last 24 Hours (Table) 02/04/22 02/04/22 02/04/22 Range/Units 16:35 20:09 21:02 RBC (4.40-5.60) X 10*6/uL Hgb (13.0-17.0) g/dL Hct (39.6-50.0) % Absolute Nucleated RBC (0.00-0.00) X 10*3/uL NRBC/100 WBC Diff (0.0-0.0) /100 WBCS Carbon Dioxide (20.0-27.5) mmol/L BUN (9.0-27.0) mg/dL Creatinine (0.6-1.5) mg/dL Est GFR (CKD-EPI)AfAm (60.0-200.0) Est GFR (CKD-EPI)NonAf (60.0-200.0) Glucose (70-110) mg/dL POC Glucose (mg/dL) 117 H 202 H (70-110) mg/dL Albumin (3.8-4.9) g/dL Urine Protein 3+ H (Negative) Urine Glucose (UA) 4+ H (Negative) Urine Blood Trace H (Negative) Urine Mucus Rare H (None) /hpf 02/05/22 02/05/22 02/05/22 Range/Units 05:27 05:27 07:07 RBC 4.34 L (4.40-5.60) X 10*6/uL Hgb 12.8 L (13.0-17.0) g/dL Hct 39.2 L (39.6-50.0) % Absolute Nucleated RBC 0.02 H (0.00-0.00) X 10*3/uL NRBC/100 WBC Diff 0.2 H (0.0-0.0) /100 WBCS Carbon Dioxide 18.9 L (20.0-27.5) mmol/L BUN 39.3 H (9.0-27.0) mg/dL Creatinine 2.0 H (0.6-1.5) mg/dL Est GFR (CKD-EPI)AfAm 38.6 L (60.0-200.0) Est GFR (CKD-EPI)NonAf 33.3 L (60.0-200.0) Glucose 158 H (70-110) mg/dL POC Glucose (mg/dL) 139 H (70-110) mg/dL Albumin 3.2 L (3.8-4.9) g/dL Urine Protein (Negative) Urine Glucose (UA) (Negative) Urine Blood (Negative) Urine Mucus (None) /hpf 02/05/22 Range/Units 11:40 RBC (4.40-5.60) X 10*6/uL Hgb (13.0-17.0) g/dL Hct (39.6-50.0) % Absolute Nucleated RBC (0.00-0.00) X 10*3/uL NRBC/100 WBC Diff (0.0-0.0) /100 WBCS Carbon Dioxide (20.0-27.5) mmol/L BUN (9.0-27.0) mg/dL Creatinine (0.6-1.5) mg/dL Est GFR (CKD-EPI)AfAm (60.0-200.0) Est GFR (CKD-EPI)NonAf (60.0-200.0) Glucose (70-110) mg/dL POC Glucose (mg/dL) 189 H (70-110) mg/dL Albumin (3.8-4.9) g/dL Urine Protein (Negative) Urine Glucose (UA) (Negative) Urine Blood (Negative) Urine Mucus (None) /hpf Assessment and Plan Assessment: Severe left knee osteoarthritis, status post left total knee arthroplasty. Today is postoperative day #2 Hypertension, controlled because of holding medication. Resume his home medication and monitor blood pressure Acute kidney injury versus progressive chronic kidney disease secondary to di abetic nephropathy Diabetes mellitus, type II mild leukocytosis, most likely reactive. No signs of infection. No need for antibiotic Hyperlipidemia Nicotine dependence Obesity with BMI of 30.8 Plan: This is a pleasant 66 years old male who presents with left knee arthroplasty. Patient looks generally doing well. His pain looks controlled His blood pressure is still elevated, continue on Norvasc and Coreg.also flecainide. Lordosis of valsartan to 160 mg daily. Facility Coordinator on the case, Aldactone added keep monitor blood pressure. Check creatinine tomorrow. Check urinalysis and bladder scan. If creatinine worsens tomorrow then nephrology consult may be considered resume aspirin and has had multiple on discharge if there is no surgical contraindication Continue with DVT and GI prophylaxis, currently on Protonix PT/OT Keep monitoring white blood cell
== END 2022-02-05 15:09 | disposition home health service (06) | DRG 470 ==
LOC: OR 09:33 → 4SSUR 12:49 → OR 02-04 08:06
PROVIDERS: ADMIT Orthopaedic Surgery; ATTEND Orthopaedic Surgery
PROC: 0SRD0J9 Replacement of Left Knee Joint with Synthetic Substitute, Cemented, Open Approach (ICD-10-PCS; principal; 2022-02-02 11:20)
DX: M17.12 Unilateral primary osteoarthritis, left knee (principal); E11.22 Type 2 diabetes mellitus with diabetic chronic kidney disease; E66.9 Obesity, unspecified; Z68.30 Body mass index [BMI] 30.0-30.9, adult; N18.9 Chronic kidney disease, unspecified; I12.9 Hypertensive chronic kidney disease with stage 1 through stage 4 chronic kidney disease, or unspecified chronic kidney disease; E78.5 Hyperlipidemia, unspecified; D72.828 Other elevated white blood cell count; F17.210 Nicotine dependence, cigarettes, uncomplicated; Z96.651 Presence of right artificial knee joint; G89.29 Other chronic pain; I25.10 Atherosclerotic heart disease of native coronary artery without angina pectoris; R60.0 Localized edema; I87.8 Other specified disorders of veins; M54.32 Sciatica, left side; N14.1 Nephropathy induced by other drugs, medicaments and biological substances; T50.8X5A Adverse effect of diagnostic agents, initial encounter; I48.0 Paroxysmal atrial fibrillation; I87.2 Venous insufficiency (chronic) (peripheral); Z90.89 Acquired absence of other organs; Z79.82 Long term (current) use of aspirin; Z79.899 Other long term (current) drug therapy; Z79.891 Long term (current) use of opiate analgesic; Z79.4 Long term (current) use of insulin; Z79.51 Long term (current) use of inhaled steroids; Z79.01 Long term (current) use of anticoagulants; Z79.84 Long term (current) use of oral hypoglycemic drugs; Z98.890 Other specified postprocedural states; Z98.61 Coronary angioplasty status
CPT/HCPCS: 64448; 64999; 76942; 80048; 80069; 81001; 83735; 83880; 84132; 85025; 88300; 94640

== ENCOUNTER → 2022-02-09 | Emergency (ER) | payer MEDICARE, OTHER ==
[2022-02-09 22:40] LABS: Basophils # (A) 0.1 k/uL (0-0.2); Basophils % (A) 1 %; Eosinophils # (A) 0.2 k/uL (0-0.7); Eosinophils % (A) 2 %; HCT 40.4 % (39.0-53.0); HGB 13.4 gm/dL (13.0-17.5); Lymphocytes # (A) 2.6 k/uL (1.0-4.8); Lymphocytes % (A) 20 %; MCH 30.6 pg (25.0-35.0); MCHC 33.2 g/dL (31.0-37.0); MCV 92.2 fL (80.0-100.0); Mean Platelet Volume 8.5; Monocytes # (A) 0.9 k/uL (0-1.0); Monocytes % (A) 8 %; Neutrophils # (A) 8.5 k/uL (1.3-7.7); Neutrophils % (A) 68 %; Platelet Count 434 k/uL (150-450); RBC 4.38 m/uL (4.30-5.90); RDW 13.9 % (11.5-15.5); WBC 12.5 k/uL (3.8-10.6)
[2022-02-10 00:30] LABS: Albumin 3.5 g/dL (3.5-5.0); Calcium 9.3 mg/dL (8.4-10.2); Potassium 4.5 mmol/L (3.5-5.1); Total Bilirubin 0.4 mg/dL (0.2-1.3); Total Protein 6.9 g/dL (6.3-8.2)
--- NOTE | 2022-02-10 17:23 | XR ---
EXAM: XR Lumbosacral Spine, 4 or 5 Views CLINICAL HISTORY: ITS. REASON XR Reason: PAIN TECHNIQUE: Frontal, lateral and bilateral oblique views of the lumbar spine. COMPARISON: No relevant prior studies available. FINDINGS: Vertebrae: Minimal lumbar levocurvature, apex at L3-4. Minimal chronic wedge deformity at T12. No acute fracture Sacrum/coccyx: Unremarkable as visualized. No acute fracture. Disc spaces: Mild degenerative disc space narrowing at L2-3 and L5-S1. Soft tissues: Extensive aortoiliac atherosclerosis. IMPRESSION: Minimal lumbar levocurvature. No acute fracture. Mild degenerative disc space narrowing at L2-3 and L5-S1.
--- NOTE | 2022-02-11 14:19 | US ---
EXAMINATION TYPE: US venous doppler duplex LE LT DATE OF EXAM: 02/10/2022 2:33 PM COMPARISON: NONE CLINICAL HISTORY: pain. left total knee replacement 02/02/22. left leg and back pain SIDE PERFORMED: left TECHNIQUE: The lower extremity deep venous system is examined utilizing real time linear array sonog diana with graded compression, doppler sonography and color-flow sonography. VESSELS IMAGED: Common Femoral Vein Deep Femoral Vein Greater Saphenous Vein * Femoral Vein Popliteal Vein Small Saphenous Vein * Proximal Calf Veins (* superficial vessels) Grayscale, color doppler, spectral doppler imaging performed of the deep veins of the lower extremiti es. Edema channels are present within the soft tissues Left Leg: negative for DVT There is normal flow, compressibility, vascular waveforms. IMPRESSION: No evident deep venous thrombosis within the left lower extremity from the level the kne e centrally. Correlate for cellulitis, edema
== END ==
LOC: EC 16:00
DX: M79.605 Pain in left leg (principal); M54.50 Low back pain, unspecified
CPT/HCPCS: 36415; 72110; 80053; 85025; 85379; 99284

== ENCOUNTER 2022-02-15 18:09 | Inpatient (IN) | payer MEDICARE, OTHER ==
[2022-02-15] MEDS ORDERED: ALBUTEROL NEBULIZED 2.5 MG/3 ML INHALATION STA (18:35)
[2022-02-15] MEDS ORDERED: HYDROmorphone 1 MG/ML 1 ML SYRINGE IVP STA (18:37)
--- NOTE | 2022-02-15 18:50 | ED ---
General Adult HPI - General Chief complaint: Extremity Injury, Lower Stated complaint: Knee Pain Time Seen by Provider: 02/15/22 18:12 Source: patient, EMS Mode of arrival: EMS Limitations: no limitations - History of Present Illness Initial comments: This patient is a 66-year-old man who presents with a number of complaints that been getting worse over the past day or 2. The patient states that the main problem is he feels like he is "jiffing" which she describes as feeling shaky and unsteady. He is also having left leg pain when he attempts to move the leg. He did have knee replacement surgery with Dr. Sue, 2 weeks ago now. He had physical rehabilitation today and was able to go through that although there was pain. He states that when he attempts to get up and move around the house he has a marked increase in the pain. He does take the analgesic medication as prescribed but only gets some relief. Patient has not noted fever or chills. He has not noted leg swelling. No chest pain, cough, hemoptysis -: hour(s) Location: left, lower extremity Radiation: non-radiation Quality: aching Consistency: intermittent Improves with: rest Worsens with: movement Associated Symptoms: confusion, other Treatments Prior to Arrival: none - Related Data Home Medications Medication Instructions Recorded Confirmed Aspirin [Adult Low Dose Aspirin EC] 81 mg PO DAILY 08/12/17 02/16/22 Hydrocodone/Acetaminophen [[place] 1 tab PO TID 12/08/17 02/16/22 10-325] Omeprazole [PriLOSEC] 20 mg PO QAM 12/08/17 02/16/22 Albuterol Inhaler [Ventolin Hfa 2 puff INHALATION QID 08/21/20 02/16/22 Inhaler] Cholecalciferol [Vitamin D3 (25 50 mcg PO DAILY 08/21/20 02/16/22 Mcg = 1000 Iu)] Insulin Glargine,Hum.rec.anlog 35 unit SQ HS 08/21/20 02/16/22 [Basaglar Kwikpen U-100] Semaglutide [Ozempic] 1 mg SQ MO 08/21/20 02/16/22 Insulin Aspart [NovoLOG] See Protocol SQ AC-TID 09/18/20 02/16/22 Atorvastatin [Lipitor] 40 mg PO HS 01/14/22 02/16/22 Fluticasone Propionate 110 Mcg 2 puff INHALATION BID 01/14/22 02/16/22 [Flovent 110 Mcg Inhaler] Gabapentin 300 mg PO HS 01/14/22 02/16/22 Multivit-Min/Folic/Vit K/Lycop 1 each PO DAILY 01/14/22 02/16/22 [Men's Multivitamin Tablet] carvediloL [Coreg*] 12.5 mg PO BID 01/14/22 02/16/22 hydroCHLOROthiazide [Hydrodiuril] 25 mg PO DAILY 01/14/22 02/16/22 Rivaroxaban [Xarelto] 20 mg PO HS 01/29/22 02/16/22 amLODIPine [Norvasc] 10 mg PO QAM 01/29/22 02/16/22 metFORMIN HCL 1,000 mg PO BID 01/29/22 02/16/22 Previous Rx's Medication Instructions Recorded Flecainide [Tambocor] 50 mg PO Q12HR #180 tablet 10/07/20 Sennosides [Senokot] 2 tab PO DAILY PRN #60 tablet 02/01/22 Ketorolac [Toradol] 10 mg PO Q6HR PRN #20 tab 02/03/22 Baclofen 10 mg PO TID PRN #30 tab 02/04/22 Spironolactone [Aldactone] 50 mg PO DAILY 30 Days #60 tab 02/05/22 Tamsulosin HCl [Flomax] 0.4 mg PO DAILY 30 Days #30 capsule 02/05/22 Valsartan [Diovan] 160 mg PO HS 30 Days #30 tab 02/05/22 Allergies Allergy/AdvReac Type Severity Reaction Status Date / Time No Known Allergies Allergy Verified 02/16/22 09:59 Review of Systems ROS Statement: Those systems with pertinent positive or pertinent negative responses have been documented in the HPI. ROS Other: All systems not noted in ROS Statement are negative. Constitutional: Reports: weakness. Denies: fever, chills Eyes: Denies: vision change Respiratory: Denies: cough, dyspnea, hemoptysis Cardiovascular: Denies: chest pain, palpitations, edema, syncope Gastrointestinal: Denies: abdominal pain, vomiting Genitourinary: Denies: dysuria, hematuria Musculoskeletal: Reports: as per HPI, arthralgia. Denies: back pain Skin: Denies: rash Neurological: Denies: headache, weakness, numbness Past Medical History Past Medical History: Atrial Fibrillation, Chest Pain / Angina, Hyperlipidemia, Hypertension History of Any Multi-Drug Resistant Organisms: None Reported Past Surgical History: Ablation, Appendectomy, Orthopedic Surgery Additional Past Surgical History / Comment(s): Ear surgery Past Anesthesia/Blood Transfusion Reactions: No Reported Reaction Additional Past Anesthesia/Blood Transfusion Reaction / Comment(s): "Woke up fighting X1". Past Psychological History: No Psychological Hx Reported Smoking Status: Current every day smoker Past Alcohol Use History: None Reported Past Drug Use History: Marijuana - Past Family History Mother Family Medical History: No Reported History General Exam Limitations: no limitations General appearance: alert, in no apparent distress, other (Mild tremor) Head exam: Present: atraumatic, normocephalic Eye exam: Present: normal appearance. Absent: scleral icterus, conjunctival injection ENT exam: Present: mucous membranes dry Neck exam: Present: normal inspection, full ROM Respiratory exam: Present: wheezes. Absent: respiratory distress, rales, rhonchi, stridor, accessory muscle use Cardiovascular Exam: Present: regular rate, normal rhythm, normal heart sounds. Absent: systolic murmur, diastolic murmur, rubs, gallop GI/Abdominal exam: Present: soft. Absent: distended, tenderness, guarding, rebound, rigid, mass Extremities exam: Present: normal inspection, normal capillary refill, pedal edema (Trace left ankle edema), other (The left knee has a healing surgical incision which is clean dry and intact. No abnormal erythema. There is a trace of warmth versus a contralateral side.). Absent: calf tenderness Neurological exam: Present: alert, oriented X3. Absent: motor sensory deficit Skin exam: Present: warm, dry, intact, normal color. Absent: rash Course Vital Signs 02/15/22 02/15/22 02/15/22 18:17 19:18 19:29 Temperature 97.1 F L Pulse Rate 70 91 92 Respiratory 20 20 18 Rate Blood Pressure 120/74 O2 Sat by Pulse 88 L Oximetry 02/15/22 02/16/22 02/16/22 22:55 00:10 02:26 Temperature Pulse Rate 73 82 89 Respiratory 16 16 18 Rate Blood Pressure 143/78 147/81 152/83 O2 Sat by Pulse 91 L 95 100 Oximetry 02/16/22 02/16/22 02/16/22 05:43 06:17 07:27 Temperature Pulse Rate 75 70 Respiratory 16 16 18 Rate Blood Pressure 160/98 O2 Sat by Pulse 98 95 Oximetry 02/16/22 02/16/22 02/16/22 08:44 09:40 10:17 Temperature 98 F 98.2 F Pulse Rate 76 70 Respiratory 16 18 16 Rate Blood Pressure 152/76 134/75 O2 Sat by Pulse 95 96 Oximetry 02/16/22 02/16/22 02/16/22 11:14 11:21 11:31 Temperature Pulse Rate 65 68 Respiratory 16 16 16 Rate Blood Pressure O2 Sat by Pulse Oximetry 02/16/22 02/16/22 02/16/22 12:03 14:17 14:59 Temperature 99.5 F Pulse Rate 70 71 Respiratory 16 16 16 Rate Blood Pressure 142/92 O2 Sat by Pulse 97 Oximetry 02/16/22 15:11 Temperature Pulse Rate 71 Respiratory 16 Rate Blood Pressure O2 Sat by Pulse Oximetry Medical Decision Making - Medical Decision Making Patient is 66-year-old man presenting with increasing left leg pain and inability ambulate. Workup does reveal probably some dehydration with acute kidney injury area also elevated d-dimer though duplex Doppler negative, the renal function does not support computed tomography scan will admit for VQ scan. I suspect that patient may require rehabilitation placement. - Lab Data Result diagrams: 02/15/22 19:00 02/15/22 19:00 Lab Results 02/15/22 02/15/22 02/15/22 Range/Units 19:00 19:00 19:00 WBC 17.0 H (3.8-10.6) k/uL RBC 3.90 L (4.30-5.90) m/uL Hgb 11.5 L (13.0-17.5) gm/dL Hct 35.7 L (39.0-53.0) % MCV 91.6 (80.0-100.0) fL MCH 29.6 (25.0-35.0) pg MCHC 32.3 (31.0-37.0) g/dL RDW 14.1 (11.5-15.5) % Plt Count 428 (150-450) k/uL MPV 7.5 Neutrophils % 75 % Lymphocytes % 15 % Monocytes % 5 % Eosinophils % 2 % Basophils % 1 % Neutrophils # 12.8 H (1.3-7.7) k/uL Lymphocytes # 2.6 (1.0-4.8) k/uL Monocytes # 0.9 (0-1.0) k/uL Eosinophils # 0.4 (0-0.7) k/uL Basophils # 0.1 (0-0.2) k/uL PT 10.0 (9.0-12.0) sec INR 0.9 (<1.2) APTT 27.3 (22.0-30.0) sec D-Dimer 1.38 H (<0.60) mg/L FEU VBG pH (7.31-7.41) VBG pCO2 (37-51) mmHg VBG HCO3 (24-28) mmol/L Sodium 132 L (137-145) mmol/L Potassium 5.3 H (3.5-5.1) mmol/L Chloride 104 (98-107) mmol/L Carbon Dioxide 16 L (22-30) mmol/L Anion Gap 12 mmol/L BUN 54 H (9-20) mg/dL Creatinine 2.39 H (0.66-1.25) mg/dL Est GFR (CKD-EPI)AfAm 31 (>60 ml/min/1.73 sqM) Est GFR (CKD-EPI)NonAf 27 (>60 ml/min/1.73 sqM) Glucose 128 H (74-99) mg/dL Plasma Lactic Acid Benji (0.7-2.0) mmol/L Calcium 8.4 (8.4-10.2) mg/dL Total Bilirubin 0.6 (0.2-1.3) mg/dL AST 30 (17-59) U/L ALT 14 (4-49) U/L Alkaline Phosphatase 88 (38-126) U/L Ammonia (<30) umol/L Troponin I (0.000-0.034) ng/mL NT-Pro-B Natriuret Pep pg/mL Total Protein 6.2 L (6.3-8.2) g/dL Albumin 3.1 L (3.5-5.0) g/dL 02/15/22 02/15/22 02/15/22 Range/Units 19:00 19:00 19:00 WBC (3.8-10.6) k/uL RBC (4.30-5.90) m/uL Hgb (13.0-17.5) gm/dL Hct (39.0-53.0) % MCV (80.0-100.0) fL MCH (25.0-35.0) pg MCHC (31.0-37.0) g/dL RDW (11.5-15.5) % Plt Count (150-450) k/uL MPV Neutrophils % % Lymphocytes % % Monocytes % % Eosinophils % % Basophils % % Neutrophils # (1.3-7.7) k/uL Lymphocytes # (1.0-4.8) k/uL Monocytes # (0-1.0) k/uL Eosinophils # (0-0.7) k/uL Basophils # (0-0.2) k/uL PT (9.0-12.0) sec INR (<1.2) APTT (22.0-30.0) sec D-Dimer (<0.60) mg/L FEU VBG pH (7.31-7.41) VBG pCO2 (37-51) mmHg VBG HCO3 (24-28) mmol/L Sodium (137-145) mmol/L Potassium (3.5-5.1) mmol/L Chloride (98-107) mmol/L Carbon Dioxide (22-30) mmol/L Anion Gap mmol/L BUN (9-20) mg/dL Creatinine (0.66-1.25) mg/dL Est GFR (CKD-EPI)AfAm (>60 ml/min/1.73 sqM) Est GFR (CKD-EPI)NonAf (>60 ml/min/1.73 sqM) Glucose (74-99) mg/dL Plasma Lactic Acid Benji 1.2 (0.7-2.0) mmol/L Calcium (8.4-10.2) mg/dL Total Bilirubin (0.2-1.3) mg/dL AST (17-59) U/L ALT (4-49) U/L Alkaline Phosphatase (38-126) U/L Ammonia 16 (<30) umol/L Troponin I <0.012 (0.000-0.034) ng/mL NT-Pro-B Natriuret Pep 273 pg/mL Total Protein (6.3-8.2) g/dL Albumin (3.5-5.0) g/dL 02/15/22 Range/Units 21:43 WBC (3.8-10.6) k/uL RBC (4.30-5.90) m/uL Hgb (13.0-17.5) gm/dL Hct (39.0-53.0) % MCV (80.0-100.0) fL MCH (25.0-35.0) pg MCHC (31.0-37.0) g/dL RDW (11.5-15.5) % Plt Count (150-450) k/uL MPV Neutrophils % % Lymphocytes % % Monocytes % % Eosinophils % % Basophils % % Neutrophils # (1.3-7.7) k/uL Lymphocytes # (1.0-4.8) k/uL Monocytes # (0-1.0) k/uL Eosinophils # (0-0.7) k/uL Basophils # (0-0.2) k/uL PT (9.0-12.0) sec INR (<1.2) APTT (22.0-30.0) sec D-Dimer (<0.60) mg/L FEU VBG pH 7.32 (7.31-7.41) VBG pCO2 40 (37-51) mmHg VBG HCO3 20 L (24-28) mmol/L Sodium (137-145) mmol/L Potassium (3.5-5.1) mmol/L Chloride (98-107) mmol/L Carbon Dioxide (22-30) mmol/L Anion Gap mmol/L BUN (9-20) mg/dL Creatinine (0.66-1.25) mg/dL Est GFR (CKD-EPI)AfAm (>60 ml/min/1.73 sqM) Est GFR (CKD-EPI)NonAf (>60 ml/min/1.73 sqM) Glucose (74-99) mg/dL Plasma Lactic Acid Benji (0.7-2.0) mmol/L Calcium (8.4-10.2) mg/dL Total Bilirubin (0.2-1.3) mg/dL AST (17-59) U/L ALT (4-49) U/L Alkaline Phosphatase (38-126) U/L Ammonia (<30) umol/L Troponin I (0.000-0.034) ng/mL NT-Pro-B Natriuret Pep pg/mL Total Protein (6.3-8.2) g/dL Albumin (3.5-5.0) g/dL Disposition Clinical Impression: Elevated d-dimer, Acute kidney injury, Left knee pain Disposition: ADMITTED IP TO THIS HOSP Condition: Good Is patient prescribed a controlled substance at d/c from ED?: No
[2022-02-15 19:16] LABS: Basophils # (A) 0.1 k/uL (0-0.2); Basophils % (A) 1 %; Eosinophils # (A) 0.4 k/uL (0-0.7); Eosinophils % (A) 2 %; HCT 35.7 % (39.0-53.0); HGB 11.5 gm/dL (13.0-17.5); Lymphocytes # (A) 2.6 k/uL (1.0-4.8); Lymphocytes % (A) 15 %; MCH 29.6 pg (25.0-35.0); MCHC 32.3 g/dL (31.0-37.0); MCV 91.6 fL (80.0-100.0); Mean Platelet Volume 7.5; Monocytes # (A) 0.9 k/uL (0-1.0); Monocytes % (A) 5 %; Neutrophils # (A) 12.8 k/uL (1.3-7.7); Neutrophils % (A) 75 %; Platelet Count 428 k/uL (150-450); RDW 14.1 % (11.5-15.5)
[2022-02-15 19:26] LABS: Albumin 3.1 g/dL (3.5-5.0); Calcium 8.4 mg/dL (8.4-10.2); Lactic Acid, Venous 1.2 mmol/L (0.7-2.0); Total Bilirubin 0.6 mg/dL (0.2-1.3); Total Protein 6.2 g/dL (6.3-8.2)
[2022-02-15 19:27] LABS: Potassium 5.3 mmol/L (3.5-5.1)
--- NOTE | 2022-02-15 19:27 | XR ---
EXAMINATION TYPE: XR chest 1V portable DATE OF EXAM: 02/15/2022 COMPARISON: 10/05/2020 HISTORY: Dysrhythmia. Cough TECHNIQUE: FINDINGS: There is no heart failure nor confluent pneumonic infiltrate. Costophrenic angles are clear . There are no hilar masses. Bony thorax is intact. IMPRESSION: No active cardiopulmonary disease. Normal heart.
[2022-02-15 19:29] LABS: INR 0.9 (<1.2); Partial Thromboplastin Time 27.3 sec (22.0-30.0)
[2022-02-15] MEDS ORDERED: SODIUM CHLORIDE 0.9% 500 ML 500 ML IV STA (20:07)
--- NOTE | 2022-02-15 20:58 | US ---
EXAMINATION TYPE: US venous doppler duplex LE LT DATE OF EXAM: 02/15/2022 8:52 PM COMPARISON: 02/09/22 CLINICAL HISTORY: Leg pain, possible DVT. Left knee pain. Patient had knee replaced 2 weeks ago. SIDE PERFORMED: Left TECHNIQUE: The lower extremity deep venous system is examined utilizing real time linear array sonog diana with graded compression, doppler sonography and color-flow sonography. VESSELS IMAGED: Common Femoral Vein Deep Femoral Vein Greater Saphenous Vein * Femoral Vein Popliteal Vein Small Saphenous Vein * Proximal Calf Veins (* superficial vessels) Left Leg: Negative for DVT IMPRESSION: No evidence of deep vein thrombosis in the left leg.
[2022-02-15] MEDS ORDERED: HYDROmorphone 1 MG/ML 1 ML SYRINGE IM STA (21:26)
[2022-02-15 21:58] LABS: VBG PH 7.32 (7.31-7.41)
[2022-02-15] MEDS ORDERED: HYDROmorphone 0.5 MG/0.5 ML SYRINGE IVP PRN (22:15)
[2022-02-15] MEDS ORDERED: NALOXONE 0.4 MG/ML 1 ML VIAL IV PRN (22:15)
[2022-02-16] MEDS ORDERED: ACETAMINOPHEN TAB 325 MG TAB PO PRN
[2022-02-16] MEDS: HYDROmorphone 1 MG/ML 1 ML SYRINGE IVP PRN ×2 (02:25→05:45)
[2022-02-16] MEDS: SODIUM CHLORIDE 0.9% 1,000 ML IV SCH ×3 (07:28→14:15)
[2022-02-16] MEDS ORDERED: carvediloL 12.5 MG TAB PO SCH (07:30)
[2022-02-16] MEDS: ALBUTEROL NEBULIZED 2.5 MG/3 ML INHALATION SCH ×3 (07:46→14:59)
[2022-02-16] MEDS ORDERED: ALBUTEROL NEBULIZED 2.5 MG/3 ML INHALATION SCH (08:00)
[2022-02-16] MEDS: HYDROcodone/APAP 10-325MG 1 EACH TAB PO SCH ×2 (08:47→15:27)
[2022-02-16] MEDS ORDERED: FAMOTIDINE 20 MG TAB PO SCH (09:00)
[2022-02-16] MEDS ORDERED: TAMSULOSIN 0.4 MG CAP.ER.24H PO SCH (09:00)
[2022-02-16] MEDS ORDERED: NON FORMULARY DRUG (Metformin Hcl [Metformin Hcl] 1,000 MG Tablet) PO SCH (09:00)
[2022-02-16] MEDS ORDERED: FLUTICASONE 110 MCG INHALER INHALATION SCH (09:00)
[2022-02-16] MEDS ORDERED: amLODIPine 10 MG TAB PO SCH (09:00)
[2022-02-16] MEDS ORDERED: FLECAINIDE 50 MG TAB PO SCH (09:00)
--- NOTE | 2022-02-16 09:08 | NM ---
EXAMINATION TYPE: NM pul vent and perfuse DATE OF EXAM: 02/16/2022 COMPARISON: Chest x-ray 02/15/2022 HISTORY: Cough TECHNIQUE: Utilizing inhalation of 63.9 mCi Tc 99m DTPA aerosol and intravenous injection of 4.8 mCi of Tc 99m MAA, ventilation and perfusion images are acquired post injection in multiple projections. FINDINGS: Ventilation images are markedly limited due to central clumping of the radiotracer likely secondary t o chronic obstructive pulmonary disease. There does appear to be multiple matched defects. No sizable mismatched defects. IMPRESSION: Intermediate probability for pulmonary embolus.
[2022-02-16 10:18] VITALS: RESP 16
[2022-02-16] MEDS ORDERED: SENNOSIDES 8.6 MG TAB PO PRN (11:42)
[2022-02-16] MEDS ORDERED: HYDROcodone/APAP 7.5-325MG 1 EACH TAB PO PRN (11:46)
[2022-02-16 11:54] LABS: Glucose,Whole Blood 145 mg/dL (70-110)
--- NOTE | 2022-02-16 12:11 | P.HPIM ---
History of Present Illness 60-year-old male came with complaints of pain in the left knee patient had surgery 2 weeks ago after which patient was discharged home with home care he felt better for couple days and continue to have this pain in the right leg sha rp in nature no increase yesterday patient was also complained of low back pain. Patient was complaining of shaking. Patient is found to have hyponatremia and elevated potassium of 5.3 with leukocytosis doesn't have any fever related creatinine of about 2.39, baseline creatinine appears to be 0.9. Patient does take valsartan, Aldactone hydrochlorothiazide and Toradol at home. Patient is admitted for acute renal failure and continued pain in the left knee post surgery. REVIEW OF SYSTEMS: CONSTITUTIONAL: No fever, no malaise, no fatigue. HEENT: No recent visual problems or hearing problems. Denied any sore throat. CARDIOVASCULAR: No chest pain, orthopnea, PND, no palpitations, no syncope. PULMONARY: No shortness of breath, no cough, no hemoptysis. GASTROINTESTINAL: No diarrhea, no nausea, no vomiting, no abdominal pain. NEUROLOGICAL: No headaches, no weakness, no numbness. HEMATOLOGICAL: Denies any bleeding or petechiae. GENITOURINARY: Denies any burning micturition, frequency, or urgency. MUSCULOSKELETAL/RHEUMATOLOGICAL: As mentioned in HPI ENDOCRINE: Denies any polyuria or polydipsia. The rest of the 14-point review of systems is negative. PHYSICAL EXAMINATION: GENERAL: The patient is alert and oriented x3, not in any acute distress. Well developed, well nourished. HEENT: Pupils are round and equally reacting to light. EOMI. No scleral icterus. No conjunctival pallor. Normocephalic, atraumatic. No pharyngeal erythema. No thyromegaly. CARDIOVASCULAR: S1 and S2 present. No murmurs, rubs, or gallops. PULMONARY: Chest is clear to auscultation, no wheezing or crackles. ABDOMEN: Soft, nontender, nondistended, normoactive bowel sounds. No palpable organomegaly. MUSCULOSKELETAL: No joint swelling or deformity. EXTREMITIES: Swelling and mild redness in the left knee NEUROLOGICAL: Gross neurological examination did not reveal any focal deficits. SKIN: No rashes. Assessment and plan -Acute renal failure: Secondary to medications as mentioned above his medications will be held and patient was started on IV fluids nephrology will be consulted -Continued swelling in the left knee post surgery: There is some swelling and mild redness unsure whether it's infection patient does have leukocytosis. Orthopedic surgery will be consulted. -Findings of intermediate probability pulmonary embolism on the VQ scan: Patient was on Xarelto, this is being held and patient will be switched to elect was because of poor renal function. Pulmonary was consulted venous Doppler of bilateral lower extremities did not show any DVT -Hyperkalemia: Secondary to acute renal failure, Aldactone, valsartan all of which will be held next line-hyponatremia secondary to hydrocodone presently that this will be held as well -Chronic back pain without any increased weakness in both legs -Atrial fibrillation on anti-correlation as mentioned above patient is rate controlled -Hyperlipidemia -Hypertension -Type 2 diabetes mellitus: Patient will be sent continued on long-acting insulin along with sliding scale other diabetic medications will be held -Continued nicotine use: Counseling was provided, patient was started on nicotine patch DVT prophylaxis: Patient is an alert course as mentioned above Past Medical History Past Medical History: Atrial Fibrillation, Chest Pain / Angina, Hyperlipidemia, Hypertension History of Any Multi-Drug Resistant Organisms: None Reported Past Surgical History: Ablation, Appendectomy, Orthopedic Surgery Additional Past Surgical History / Comment(s): Ear surgery Past Anesthesia/Blood Transfusion Reactions: No Reported Reaction Additional Past Anesthesia/Blood Transfusion Reaction / Comment(s): "Woke up fighting X1". Past Psychological History: No Psychological Hx Reported Smoking Status: Current every day smoker Past Alcohol Use History: None Reported Past Drug Use History: Marijuana - Past Family History Mother Family Medical History: No Reported History Medications and Allergies Home Medications Medication Instructions Recorded Confirmed Type Aspirin [Adult Low Dose Aspirin EC] 81 mg PO DAILY 08/12/17 02/16/22 History Hydrocodone/Acetaminophen [[place] 1 tab PO TID 12/08/17 02/16/22 History 10-325] Omeprazole [PriLOSEC] 20 mg PO QAM 12/08/17 02/16/22 History Albuterol Inhaler [Ventolin Hfa 2 puff INHALATION QID 08/21/20 02/16/22 History Inhaler] Cholecalciferol [Vitamin D3 (25 50 mcg PO DAILY 08/21/20 02/16/22 History Mcg = 1000 Iu)] Insulin Glargine,Hum.rec.anlog 35 unit SQ HS 08/21/20 02/16/22 History [Basaglar Kwikpen U-100] Semaglutide [Ozempic] 1 mg SQ MO 08/21/20 02/16/22 History Insulin Aspart [NovoLOG] See Protocol SQ AC-TID 09/18/20 02/16/22 History Flecainide [Tambocor] 50 mg PO Q12HR #180 tablet 10/07/20 02/16/22 Rx Atorvastatin [Lipitor] 40 mg PO HS 01/14/22 02/16/22 History Fluticasone Propionate 110 Mcg 2 puff INHALATION BID 01/14/22 02/16/22 History [Flovent 110 Mcg Inhaler] Gabapentin 300 mg PO HS 01/14/22 02/16/22 History Multivit-Min/Folic/Vit K/Lycop 1 each PO DAILY 01/14/22 02/16/22 History [Men's Multivitamin Tablet] carvediloL [Coreg*] 12.5 mg PO BID 01/14/22 02/16/22 History hydroCHLOROthiazide [Hydrodiuril] 25 mg PO DAILY 01/14/22 02/16/22 History Rivaroxaban [Xarelto] 20 mg PO HS 01/29/22 02/16/22 History amLODIPine [Norvasc] 10 mg PO QAM 01/29/22 02/16/22 History metFORMIN HCL 1,000 mg PO BID 01/29/22 02/16/22 History Sennosides [Senokot] 2 tab PO DAILY PRN #60 tablet 02/01/22 02/16/22 Rx Ketorolac [Toradol] 10 mg PO Q6HR PRN #20 tab 02/03/22 02/16/22 Rx Baclofen 10 mg PO TID PRN #30 tab 02/04/22 02/16/22 Rx Spironolactone [Aldactone] 50 mg PO DAILY 30 Days #60 tab 02/05/22 02/16/22 Rx Tamsulosin HCl [Flomax] 0.4 mg PO DAILY 30 Days #30 capsule 02/05/22 02/16/22 Rx Valsartan [Diovan] 160 mg PO HS 30 Days #30 tab 02/05/22 02/16/22 Rx Allergies Allergy/AdvReac Type Severity Reaction Status Date / Time No Known Allergies Allergy Verified 02/16/22 09:59 Physical Exam Vitals: Vital Signs Temp Pulse Resp BP Pulse Ox 02/16/22 12:03 16 02/16/22 11:31 68 16 02/16/22 11:21 65 16 02/16/22 11:14 16 02/16/22 10:17 16 02/16/22 09:40 98.2 F 70 18 134/75 96 02/16/22 08:44 98 F 76 16 152/76 95 02/16/22 07:27 18 02/16/22 06:17 70 16 160/98 95 02/16/22 05:43 75 16 98 02/16/22 02:26 89 18 152/83 100 02/16/22 00:10 82 16 147/81 95 02/15/22 22:55 73 16 143/78 91 L 02/15/22 19:29 92 18 02/15/22 19:18 91 20 02/15/22 18:17 97.1 F L 70 20 120/74 88 L Intake and Output 02/15/22 02/16/22 02/16/22 22:59 06:59 14:59 Other: Weight 102.965 kg Results CBC & Chem 7: 02/15/22 19:00 02/15/22 19:00 Labs: Abnormal Lab Results - Last 24 Hours (Table) 02/15/22 02/15/22 02/15/22 Range/Units 19:00 19:00 19:00 WBC 17.0 H (3.8-10.6) k/uL RBC 3.90 L (4.30-5.90) m/uL Hgb 11.5 L (13.0-17.5) gm/dL Hct 35.7 L (39.0-53.0) % Neutrophils # 12.8 H (1.3-7.7) k/uL D-Dimer 1.38 H (<0.60) mg/L FEU VBG HCO3 (24-28) mmol/L Sodium 132 L (137-145) mmol/L Potassium 5.3 H (3.5-5.1) mmol/L Carbon Dioxide 16 L (22-30) mmol/L BUN 54 H (9-20) mg/dL Creatinine 2.39 H (0.66-1.25) mg/dL Glucose 128 H (74-99) mg/dL POC Glucose (mg/dL) (70-110) mg/dL Total Protein 6.2 L (6.3-8.2) g/dL Albumin 3.1 L (3.5-5.0) g/dL 02/15/22 02/16/22 Range/Units 21:43 11:52 WBC (3.8-10.6) k/uL RBC (4.30-5.90) m/uL Hgb (13.0-17.5) gm/dL Hct (39.0-53.0) % Neutrophils # (1.3-7.7) k/uL D-Dimer (<0.60) mg/L FEU VBG HCO3 20 L (24-28) mmol/L Sodium (137-145) mmol/L Potassium (3.5-5.1) mmol/L Carbon Dioxide (22-30) mmol/L BUN (9-20) mg/dL Creatinine (0.66-1.25) mg/dL Glucose (74-99) mg/dL POC Glucose (mg/dL) 145 H (70-110) mg/dL Total Protein (6.3-8.2) g/dL Albumin (3.5-5.0) g/dL
[2022-02-16] MEDS ORDERED: INSULIN ASPART (NovoLOG) 100 UNIT/ML VIAL SQ SCH (12:30)
--- NOTE | 2022-02-16 14:16 | P.CNPUL ---
History of Present Illness Consult date: 02/16/22 Requesting physician: Brittany Osorio Reason for consult: other Chief complaint: Back and left leg pain. History of present illness: Pulmonary consult dated 02/15/2022. This is a 66-year-old male presents to the emergency department, with complaints of back and left leg pain. The patient states that his back and left leg have been hurting for about a day and a half to 2 days. On February 02, he had a left total knee arthroplasty by Dr. Sue. The pain that he is having is in the knee that was recently placed he denies any acute pulmonary issues such as shortness of breath, cough, wheezing, or phlegm production. He does have chronic respiratory issues, related to 52 years of tobacco use, and probable COPD. The patient has never been seen by a plywood patcher. But apparently is on Ventolin inhaler, and Flovent. The patient had a Doppler of the left lower extremity that was negative for DVT. In addition, he had a ventilation perfusion lung scan was indeterminate. The patient is chronically on Xarelto. He's currently on room air. He's not receiving any IV fluids. Again as m entioned earlier, the patient does continue to smoke, and has been smoking since the age of 14. He smokes at least one pack a day. He has a history of atrial fibrillation, angina, hyperlipidemia, hypertension, and previous ablation. His medication list is quite extensive. White count 17, hemoglobin 11.5, hematocrit 35.7, and platelet count that is normal. D-dimer is 1.38. Venous blood gas sh ows a pCO2 of 40 and a pH of 7.32. Sodium 132, potassium 5.3, chlorides 104, CO2 16, anion gap 12, BUN 54, and creatinine 2.39. N-terminal proBNP was normal. Troponin was negative. Chest x-ray was normal. Review of Systems REVIEW OF SYSTEMS: CONSTITUTIONAL: [Negative.] NEUROLOGIC: [ Negative.] HEENT: [ Negative.] CARDIAC: [Negative.] PULMONARY: [Negative.] GI: [Negative.] : [Negative.] RHEUMATOLOGIC: Back and left leg pain. IMMUNOLOGIC: [ Negative.] ENDOCRINE: [Negative. ] DERMATOLOGIC: [Negative.] Past Medical History Past Medical History: Atrial Fibrillation, Chest Pain / Angina, Hyperlipidemia, Hypertension History of Any Multi-Drug Resistant Organisms: None Reported Past Surgical History: Ablation, Appendectomy, Orthopedic Surgery Additional Past Surgical History / Comment(s): Ear surgery Past Anesthesia/Blood Transfusion Reactions: No Reported Reaction Additional Past Anesthesia/Blood Transfusion Reaction / Comment(s): "Woke up fighting X1". Past Psychological History: No Psychological Hx Reported Smoking Status: Current every day smoker Past Alcohol Use History: None Reported Past Drug Use History: Marijuana - Past Family History Mother Family Medical History: No Reported History Medications and Allergies Home Medications Medication Instructions Recorded Confirmed Type Aspirin [Adult Low Dose Aspirin EC] 81 mg PO DAILY 08/12/17 02/16/22 History Hydrocodone/Acetaminophen [[place] 1 tab PO TID 12/08/17 02/16/22 History 10-325] Omeprazole [PriLOSEC] 20 mg PO QAM 12/08/17 02/16/22 History Albuterol Inhaler [Ventolin Hfa 2 puff INHALATION QID 08/21/20 02/16/22 History Inhaler] Cholecalciferol [Vitamin D3 (25 50 mcg PO DAILY 08/21/20 02/16/22 History Mcg = 1000 Iu)] Insulin Glargine,Hum.rec.anlog 35 unit SQ HS 08/21/20 02/16/22 History [Basaglar Kwikpen U-100] Semaglutide [Ozempic] 1 mg SQ MO 08/21/20 02/16/22 History Insulin Aspart [NovoLOG] See Protocol SQ AC-TID 09/18/20 02/16/22 History Flecainide [Tambocor] 50 mg PO Q12HR #180 tablet 10/07/20 02/16/22 Rx Atorvastatin [Lipitor] 40 mg PO HS 01/14/22 02/16/22 History Fluticasone Propionate 110 Mcg 2 puff INHALATION BID 01/14/22 02/16/22 History [Flovent 110 Mcg Inhaler] Gabapentin 300 mg PO HS 01/14/22 02/16/22 History Multivit-Min/Folic/Vit K/Lycop 1 each PO DAILY 01/14/22 02/16/22 History [Men's Multivitamin Tablet] carvediloL [Coreg*] 12.5 mg PO BID 01/14/22 02/16/22 History hydroCHLOROthiazide [Hydrodiuril] 25 mg PO DAILY 01/14/22 02/16/22 History Rivaroxaban [Xarelto] 20 mg PO HS 01/29/22 02/16/22 History amLODIPine [Norvasc] 10 mg PO QAM 01/29/22 02/16/22 History metFORMIN HCL 1,000 mg PO BID 01/29/22 02/16/22 History Sennosides [Senokot] 2 tab PO DAILY PRN #60 tablet 02/01/22 02/16/22 Rx Ketorolac [Toradol] 10 mg PO Q6HR PRN #20 tab 02/03/22 02/16/22 Rx Baclofen 10 mg PO TID PRN #30 tab 02/04/22 02/16/22 Rx Spironolactone [Aldactone] 50 mg PO DAILY 30 Days #60 tab 02/05/22 02/16/22 Rx Tamsulosin HCl [Flomax] 0.4 mg PO DAILY 30 Days #30 capsule 02/05/22 02/16/22 Rx Valsartan [Diovan] 160 mg PO HS 30 Days #30 tab 02/05/22 02/16/22 Rx Allergies Allergy/AdvReac Type Severity Reaction Status Date / Time No Known Allergies Allergy Verified 02/16/22 09:59 Physical Exam Osteopathic Statement: *. No significant issues noted on an osteopathic structural exam other than those noted in the History and Physical/Consult. Vitals: Vital Signs Temp Pulse Resp BP Pulse Ox 02/16/22 12:03 16 02/16/22 11:31 68 16 02/16/22 11:21 65 16 02/16/22 11:14 16 02/16/22 10:17 16 02/16/22 09:40 98.2 F 70 18 134/75 96 02/16/22 08:44 98 F 76 16 152/76 95 02/16/22 07:27 18 02/16/22 06:17 70 16 160/98 95 02/16/22 05:43 75 16 98 02/16/22 02:26 89 18 152/83 100 02/16/22 00:10 82 16 147/81 95 02/15/22 22:55 73 16 143/78 91 L 02/15/22 19:29 92 18 02/15/22 19:18 91 20 02/15/22 18:17 97.1 F L 70 20 120/74 88 L Intake and Output 02/15/22 02/16/22 02/16/22 22:59 06:59 14:59 Other: Weight 102.965 kg No acute distress, oriented 3. No respiratory distress, audible wheezing, use of accessory muscles, or conversational dyspnea. HEENT examination is grossly unremarkable. Neck supple. Full range of motion. No adenopathy thyromegaly or neck vein distention. Cardiovascular examination reveals regular rhythm rate. S1-S2 normal. No S3 or S4. No discernible murmur noted. Heart rate 68 bpm. Lungs reveal scattered mild rhonchi and mild expiratory wheezes. No crackles. Breath sounds equal bilaterally. Room air saturation is 94%. Abdomen soft bowel sounds are heard. No masses or tenderness. Extremities are intact. No cyanosis clubbing or edema. Skin is without rash or lesion. Neurologic examination is brief but nonfocal. Results - Laboratory Findings CBC and BMP: 02/15/22 19:00 02/15/22 19:00 PT/INR, D-dimer PT 10.0 sec (9.0-12.0) 02/15/22 19:00 INR 0.9 (<1.2) 02/15/22 19:00 D-Dimer 1.38 mg/L FEU (<0.60) H 02/15/22 19:00 Abnormal lab findings: Abnormal Labs 02/15/22 02/15/22 02/15/22 19:00 19:00 19:00 WBC 17.0 H RBC 3.90 L Hgb 11.5 L Hct 35.7 L Neutrophils # 12.8 H D-Dimer 1.38 H VBG HCO3 Sodium 132 L Potassium 5.3 H Carbon Dioxide 16 L BUN 54 H Creatinine 2.39 H Glucose 128 H POC Glucose (mg/dL) Total Protein 6.2 L Albumin 3.1 L 02/15/22 02/16/22 21:43 11:52 WBC RBC Hgb Hct Neutrophils # D-Dimer VBG HCO3 20 L Sodium Potassium Carbon Dioxide BUN Creatinine Glucose POC Glucose (mg/dL) 145 H Total Protein Albumin - Diagnostic Findings Chest x-ray: image reviewed U/S of Legs: image reviewed Assessment and Plan Assessment: Back, and left leg pain, likely related to recent left total knee arthroplasty done on 02/02/2022. Nothing to suggest pulmonary embolism, and my opinion. No evidence of DVT in the left leg, based on the Doppler study. Likely significant underlying COPD, for 52 years of tobacco use. History of diabetes mellitus. History of hyperlipidemia. History of hypertension. History of chronic atrial fibrillation. Previous history of ablation. Multiple other medical problems and comorbidities. Plan: Plan dated 02/16/2022. In my opinion, it's very unlikely that the patient has had a pulmonary embolism. First of all, he is not having any acute pulmonary issues. He does have some chronic shortness of breath, secondary to underlying COPD. The patient is on Ventolin and Flovent for that, but has never seen a plywood patcher. It would be beneficial after discharge, to have him get pulmonary function test, to better characterize COPD. The patient is counseled about the importance of smoking cessation. The Doppler study and ventilation perfusion lung scan, are both reviewed. Interestingly, the patient is chronically on Xarelto for atrial fibrillation, making DVT and pulmonary embolism much less likely. No additional recommendations are made. We will continue to follow. Time with Patient: Greater than 30
[2022-02-16 14:18] VITALS: BP 142/92; TEMP 99.5
[2022-02-16 15:01] VITALS: PULSE 71
--- NOTE | 2022-02-16 15:37 | P.CNOR ---
History of Present Illness - HPI Consult date: 02/16/22 History of present illness: This is a 66-year-old male who is admitted for generalized weakness. Orthopedics is consulted due to recent left total knee replacement on 02/02/2022. Patient states that he has had shaking in his upper and lower extremities over the last couple of days and this is why he presented to the emergency room. Patient reports pain in the left knee and states that he has had difficulty working with physical therapy because of the pain. Patient states that he is able to bear weight on the left lower extremity, but only for a couple of steps. Patient's past medical history significant for atrial fibrillation, angina, hyperlipidemia and hypertension. Patient denies any fever/chills, abdominal pain, shortness of breath or chest pain. Review of Systems See HPI. Past Medical History Past Medical History: Atrial Fibrillation, Chest Pain / Angina, Hyperlipidemia, Hypertension History of Any Multi-Drug Resistant Organisms: None Reported Past Surgical History: Ablation, Appendectomy, Orthopedic Surgery Additional Past Surgical History / Comment(s): Ear surgery Past Anesthesia/Blood Transfusion Reactions: No Reported Reaction Additional Past Anesthesia/Blood Transfusion Reaction / Comm: "Woke up fighting X1". Past Psychological History: No Psychological Hx Reported Smoking Status: Current every day smoker Past Alcohol Use History: None Reported Past Drug Use History: Marijuana - Past Family History Mother Family Medical History: No Reported History Medications and Allergies Home Medications Medication Instructions Recorded Confirmed Type Aspirin [Adult Low Dose Aspirin EC] 81 mg PO DAILY 08/12/17 02/16/22 History Hydrocodone/Acetaminophen [[place] 1 tab PO TID 12/08/17 02/16/22 History 10-325] Omeprazole [PriLOSEC] 20 mg PO QAM 12/08/17 02/16/22 History Albuterol Inhaler [Ventolin Hfa 2 puff INHALATION QID 08/21/20 02/16/22 History Inhaler] Cholecalciferol [Vitamin D3 (25 50 mcg PO DAILY 08/21/20 02/16/22 History Mcg = 1000 Iu)] Insulin Glargine,Hum.rec.anlog 35 unit SQ HS 08/21/20 02/16/22 History [Basaglar Kwikpen U-100] Semaglutide [Ozempic] 1 mg SQ MO 08/21/20 02/16/22 History Insulin Aspart [NovoLOG] See Protocol SQ AC-TID 09/18/20 02/16/22 History Flecainide [Tambocor] 50 mg PO Q12HR #180 tablet 10/07/20 02/16/22 Rx Atorvastatin [Lipitor] 40 mg PO HS 01/14/22 02/16/22 History Fluticasone Propionate 110 Mcg 2 puff INHALATION BID 01/14/22 02/16/22 History [Flovent 110 Mcg Inhaler] Gabapentin 300 mg PO HS 01/14/22 02/16/22 History Multivit-Min/Folic/Vit K/Lycop 1 each PO DAILY 01/14/22 02/16/22 History [Men's Multivitamin Tablet] carvediloL [Coreg*] 12.5 mg PO BID 01/14/22 02/16/22 History hydroCHLOROthiazide [Hydrodiuril] 25 mg PO DAILY 01/14/22 02/16/22 History Rivaroxaban [Xarelto] 20 mg PO HS 01/29/22 02/16/22 History amLODIPine [Norvasc] 10 mg PO QAM 01/29/22 02/16/22 History metFORMIN HCL 1,000 mg PO BID 01/29/22 02/16/22 History Sennosides [Senokot] 2 tab PO DAILY PRN #60 tablet 02/01/22 02/16/22 Rx Ketorolac [Toradol] 10 mg PO Q6HR PRN #20 tab 02/03/22 02/16/22 Rx Baclofen 10 mg PO TID PRN #30 tab 02/04/22 02/16/22 Rx Spironolactone [Aldactone] 50 mg PO DAILY 30 Days #60 tab 02/05/22 02/16/22 Rx Tamsulosin HCl [Flomax] 0.4 mg PO DAILY 30 Days #30 capsule 02/05/22 02/16/22 Rx Valsartan [Diovan] 160 mg PO HS 30 Days #30 tab 02/05/22 02/16/22 Rx Allergies Allergy/AdvReac Type Severity Reaction Status Date / Time No Known Allergies Allergy Verified 02/16/22 09:59 Physical Examination Vital signs are stable. Patient is in no acute distress and is alert and oriented 3. Calf is soft and nontender to palpation. Incision is clean, dry, and intact. There is no erythema. Mild ecchymosis. Patient is able to actively flex and extend the left knee, but this is limited secondary to pain. Patient has full foot and ankle motion without pain or difficulty. Sensation intact. Neurovascular status and circulatory status are intact. Results X-rays of the left knee dated 02/16/2022 show left total knee arthroplasty in good position and alignment. - Labs Labs: Abnormal Lab Results - Last 24 Hours (Table) 02/15/22 02/15/22 02/15/22 Range/Units 19:00 19:00 19:00 WBC 17.0 H (3.8-10.6) k/uL RBC 3.90 L (4.30-5.90) m/uL Hgb 11.5 L (13.0-17.5) gm/dL Hct 35.7 L (39.0-53.0) % Neutrophils # 12.8 H (1.3-7.7) k/uL D-Dimer 1.38 H (<0.60) mg/L FEU VBG HCO3 (24-28) mmol/L Sodium 132 L (137-145) mmol/L Potassium 5.3 H (3.5-5.1) mmol/L Carbon Dioxide 16 L (22-30) mmol/L BUN 54 H (9-20) mg/dL Creatinine 2.39 H (0.66-1.25) mg/dL Glucose 128 H (74-99) mg/dL POC Glucose (mg/dL) (70-110) mg/dL Total Protein 6.2 L (6.3-8.2) g/dL Albumin 3.1 L (3.5-5.0) g/dL 02/15/22 02/16/22 Range/Units 21:43 11:52 WBC (3.8-10.6) k/uL RBC (4.30-5.90) m/uL Hgb (13.0-17.5) gm/dL Hct (39.0-53.0) % Neutrophils # (1.3-7.7) k/uL D-Dimer (<0.60) mg/L FEU VBG HCO3 20 L (24-28) mmol/L Sodium (137-145) mmol/L Potassium (3.5-5.1) mmol/L Carbon Dioxide (22-30) mmol/L BUN (9-20) mg/dL Creatinine (0.66-1.25) mg/dL Glucose (74-99) mg/dL POC Glucose (mg/dL) 145 H (70-110) mg/dL Total Protein (6.3-8.2) g/dL Albumin (3.5-5.0) g/dL H & H 02/15/22 Range/Units 19:00 Hgb 11.5 L (13.0-17.5) gm/dL Hct 35.7 L (39.0-53.0) % Coagulation 02/15/22 Range/Units 19:00 INR 0.9 (<1.2) Result Diagrams: 02/15/22 19:00 02/15/22 19:00 Assessment and Plan (1) Status post total left knee replacement Current Visit: No Status: Acute Code(s): Z96.652 - PRESENCE OF LEFT ARTIFICIAL KNEE JOINT SNOMED Code(s): 4743360049514 Plan: 1. X-rays of the left knee are reviewed and reveal total knee arthroplasty in good position and alignment. 2. Patient is to continue physical therapy. 3. Patient is afebrile and well-appearing. Exam findings and white count are consistent with recent left total knee arthroplasty. Low suspicion for inf ection. 4. We will continue to follow peripherally.
--- NOTE | 2022-02-16 15:52 | XR ---
EXAMINATION TYPE: XR knee limited LT DATE OF EXAM: 02/16/2022 COMPARISON: 02/02/2022 TECHNIQUE: Two views submitted HISTORY: Post op FINDINGS: There is a prosthetic knee in near anatomic alignment. There is soft tissue edema and emphysema. IMPRESSION: 1. Postoperative change.. Vascular calcifications noted. There appears to be diffuse soft tissue elan a.
--- NOTE | 2022-02-16 17:15 | P.DS ---
Providers Date of admission: 02/15/22 22:15 Attending physician: Nirav Bowser MD Consults: 02/15/22 22:15 Consult Physician Routine Consulting Provider: Glenn Sue Consult Reason/Comments: Your patient, post-operative Do you want consulting provider notified?: Yes 02/16/22 11:39 Consult Physician Routine Consulting Provider: Refugio Rae Consult Reason/Comments: Possible PE Do you want consulting provider notified?: Yes 02/16/22 11:40 Consult Physician Routine Consulting Provider: Emile Jones Consult Reason/Comments: SHEYLA Do you want consulting provider notified?: Yes Primary care physician: FARHEEN Valdes Hospital Course: Patient left AMA after requesting additional pain management. He was evaluated by orthopedics who have reviewed xrays and felt knee in good alignment and to continue with PT/OT. Patient has been started on oral morphine outpatient, he does see Dr Garcia for pain management. Patient had already left hospital when provider called back after reviewing external medications. Plan - Discharge Summary New Discharge Prescriptions: No Action Aspirin [Adult Low Dose Aspirin EC] 81 mg PO DAILY Omeprazole [PriLOSEC] 20 mg PO QAM Hydrocodone/Acetaminophen [[place] 10-325] 1 tab PO TID Semaglutide [Ozempic] 1 mg SQ MO Insulin Glargine,Hum.rec.anlog [Basaglar Kwikpen U-100] 35 unit SQ HS Cholecalciferol [Vitamin D3 (25 Mcg = 1000 Iu)] 50 mcg PO DAILY Albuterol Inhaler [Ventolin Hfa Inhaler] 2 puff INHALATION QID Insulin Aspart [NovoLOG] See Protocol SQ AC-TID Fluticasone Propionate 110 Mcg [Flovent 110 Mcg Inhaler] 2 puff INHALATION BID carvediloL [Coreg*] 12.5 mg PO BID Atorvastatin [Lipitor] 40 mg PO HS Multivit-Min/Folic/Vit K/Lycop [Men's Multivitamin Tablet] 1 each PO DAILY Ketorolac [Toradol] 10 mg PO Q6HR PRN #20 tab PRN Reason: Pain Spironolactone [Aldactone] 50 mg PO DAILY 30 Days #60 tab Valsartan [Diovan] 160 mg PO HS 30 Days #30 tab Flecainide [Tambocor] 50 mg PO Q12HR #180 tablet hydroCHLOROthiazide [Hydrodiuril] 25 mg PO DAILY Gabapentin 300 mg PO HS amLODIPine [Norvasc] 10 mg PO QAM Rivaroxaban [Xarelto] 20 mg PO HS metFORMIN HCL 1,000 mg PO BID Sennosides [Senokot] 2 tab PO DAILY PRN #60 tablet PRN Reason: Constipation Baclofen 10 mg PO TID PRN #30 tab PRN Reason: Spasms Tamsulosin HCl [Flomax] 0.4 mg PO DAILY 30 Days #30 capsule Discharge Medication List Aspirin [Adult Low Dose Aspirin EC] 81 mg PO DAILY 08/12/17 [History] Hydrocodone/Acetaminophen [[place] 10-325] 1 tab PO TID 12/08/17 [History] Omeprazole [PriLOSEC] 20 mg PO QAM 12/08/17 [History] Albuterol Inhaler [Ventolin Hfa Inhaler] 2 puff INHALATION QID 08/21/20 [History] Cholecalciferol [Vitamin D3 (25 Mcg = 1000 Iu)] 50 mcg PO DAILY 08/21/20 [History] Insulin Glargine,Hum.rec.anlog [Basaglar Kwikpen U-100] 35 unit SQ HS 08/21/20 [History] Semaglutide [Ozempic] 1 mg SQ MO 08/21/20 [History] Insulin Aspart [NovoLOG] See Protocol SQ AC-TID 09/18/20 [History] Flecainide [Tambocor] 50 mg PO Q12HR #180 tablet 10/07/20 [Rx] Atorvastatin [Lipitor] 40 mg PO HS 01/14/22 [History] Fluticasone Propionate 110 Mcg [Flovent 110 Mcg Inhaler] 2 puff INHALATION BID 01/14/22 [History] Gabapentin 300 mg PO HS 01/14/22 [History] Multivit-Min/Folic/Vit K/Lycop [Men's Multivitamin Tablet] 1 each PO DAILY 01/14/22 [History] carvediloL [Coreg*] 12.5 mg PO BID 01/14/22 [History] hydroCHLOROthiazide [Hydrodiuril] 25 mg PO DAILY 01/14/22 [History] Rivaroxaban [Xarelto] 20 mg PO HS 01/29/22 [History] amLODIPine [Norvasc] 10 mg PO QAM 01/29/22 [History] metFORMIN HCL 1,000 mg PO BID 01/29/22 [History] Sennosides [Senokot] 2 tab PO DAILY PRN #60 tablet 02/01/22 [Rx] Ketorolac [Toradol] 10 mg PO Q6HR PRN #20 tab 02/03/22 [Rx] Baclofen 10 mg PO TID PRN #30 tab 02/04/22 [Rx] Spironolactone [Aldactone] 50 mg PO DAILY 30 Days #60 tab 02/05/22 [Rx] Tamsulosin HCl [Flomax] 0.4 mg PO DAILY 30 Days #30 capsule 02/05/22 [Rx] Valsartan [Diovan] 160 mg PO HS 30 Days #30 tab 02/05/22 [Rx] Follow up Appointment(s)/Referral(s): Brittany Osorio, FARHEEN [Primary Care Provider] - 1-2 days Discharge Disposition: Left Against Medical Advice
[2022-02-16] MEDS ORDERED: APIXABAN 5 MG TAB PO SCH (21:00)
[2022-02-16] MEDS ORDERED: RIVAROXABAN 20 MG TAB PO SCH (21:00)
[2022-02-16] MEDS ORDERED: BACLOFEN 10 MG TAB PO SCH (21:00)
[2022-02-16] MEDS ORDERED: ATORVASTATIN 40 MG TAB PO SCH (21:00)
[2022-02-16] MEDS ORDERED: INSULIN DETEMIR (LEVEMIR) 100 UNIT/ML SYR SQ SCH (21:00)
[2022-02-16] MEDS ORDERED: GABAPENTIN 300 MG CAP PO SCH (21:00)
[2022-02-16] MEDS ORDERED: VALSARTAN 160 MG TAB PO SCH (21:00)
[2022-02-17] MEDS ORDERED: NICOTINE 21MG/24HR PATCH TRANSDERM SCH (09:00)
[2022-02-17] MEDS ORDERED: FAMOTIDINE 20 MG TAB PO SCH (09:00)
--- NOTE | 2022-02-26 10:57 | CDI ---
Documentation Clarification Form Date: 02/26/22 From: Jodie Campos Admit Date: 02/16/2022 02:16:00 PM Patient Name: Nolberto Gonzalez Visit Number: [id number] Discharge Date: 02/16/2022 04:17:00 PM ATTENTION: The Clinical Documentation Specialists (CDI) and [facility] Coding Staff appreciate your assistance in clarifying documentation. Please respond to the clarification below the line at the bottom and electronically sign. The CDI & [facility] Coding staff will review the response and follow-up if needed. Please note: Queries are made part of the Legal Health Record. If you have any questions, please contact the author of this message via ITS. Dr. Grace Levy, The patients principal diagnosis the diagnosis that was chiefly responsible for the admission - has not been clearly identified and clarification is requested. : The patient presented to ED on 02/15 and then observation with the following: He is also having left leg pain when he attempts to move the leg. He did have knee replacement surgery with Dr. Sue, 2 weeks ago now. Workup does reveal probably some dehydration with acute kidney injury area also elevated d-dimer though duplex Doppler negative, the renal function does not support computed tomography scan will admit for VQ scan. On 02/16 he is changed to Inpatient, Patient left AMA after requesting additional pain management. History/Risk factors: left knee pain following LTHR two weeks prior, hyperkalemia, hyponatremia, dehydration, SHEYLA, chronic atrial fibrillation, HLD, T2DM, COPD, HTN, Clinical Indicators: Continued swelling in the left knee post surgery: There is some swelling and mild redness unsure whether it's infection patient does have leukocytosis. Lab findings: 02/15 CR - 2.39, No Cr following the initial, L knee Radiology findings: Postoperative change. Vascular calcifications noted. There appears to be diffuse soft tissue edema. Vital Signs: 02/16: T-99.5, P 70, R 16, BP 142/92, O2 97 (3L O2) Treatment: consult Ortho, consult occupational therapy, left AMA after requesting additional pain management Consults: X-rays of the left knee are reviewed and reveal total knee arthroplasty in good position and alignment. Patient is to continue physical therapy. Patient is afebrile and well- appearing.Exam findings and white count are consistent with recent left total knee arthroplasty. Low suspicion for infection. In your professional opinion, can you please clarify which diagnosis, after study, was the reason chiefly responsible for the inpatient admission? [ x ] Left knee pain [ ] Acute kidney injury [ ] Other, please specify [ ] Unable to determine MTDD
== END 2022-02-16 16:17 | disposition left against medical advice (07) | DRG 556 ==
LOC: EC 18:09 → 6NMEDSUR 22:15 → OBSVTOIN 02-16 14:16 → 6NMEDSUR 02-16 15:46
PROVIDERS: ADMIT Internal Medicine; ATTEND Internal Medicine
DX: M25.562 Pain in left knee (principal); N17.9 Acute kidney failure, unspecified; E87.1 Hypo-osmolality and hyponatremia; I48.20 Chronic atrial fibrillation, unspecified; D72.829 Elevated white blood cell count, unspecified; E78.5 Hyperlipidemia, unspecified; E11.9 Type 2 diabetes mellitus without complications; E86.0 Dehydration; J44.9 Chronic obstructive pulmonary disease, unspecified; Z79.4 Long term (current) use of insulin; I10 Essential (primary) hypertension; E87.5 Hyperkalemia; G89.29 Other chronic pain; M54.50 Low back pain, unspecified; Z53.29 Procedure and treatment not carried out because of patient's decision for other reasons; F17.210 Nicotine dependence, cigarettes, uncomplicated; Z71.6 Tobacco abuse counseling; Z79.82 Long term (current) use of aspirin; Z79.84 Long term (current) use of oral hypoglycemic drugs; Z79.01 Long term (current) use of anticoagulants; Z79.891 Long term (current) use of opiate analgesic; Z79.899 Other long term (current) drug therapy; Z96.652 Presence of left artificial knee joint
CPT/HCPCS: 36415; 71045; 78582; 80053; 82140; 82803; 83605; 83880; 84484; 85025; 85379; 85610; 85730; 87040; 94640; 96361; 96366; 96374; 96375; 96376; 99285